=== PATIENT | female | born 1985 | race Caucasian/White ===

== ENCOUNTER → 2017-05-28 13:10 | Outpatient (CLI) | payer MEDICAID, SELFPAY ==
[2017-05-28 15:09] LABS: Vitamin B12 365 pg/mL (211-911)
[2017-05-28 15:44] LABS: ALB/GLOB Ratio 1.1 RATIO (0.9-2.4); AST(SGOT) 40 U/L (15-37); Alanine Aminotransfer ALT/SGPT 45 U/L (13-56); Albumin, Serum 3.8 g/dL (3.2-5.0); Alkaline Phosphatase 67 U/L (45-117); Anion Gap 6 (5-15); BUN 12 mg/dL (7-18); BUN/Creat Ratio 19.4 RATIO (10-20); Calcium,Total 8.9 mg/dL (8.5-10.1); Chloride 106 mmol/L (98-107); Creatinine, Serum 0.62 mg/dL (0.55-1.02); EST Glomerular Filtration Rate 120 mL/min (>60); Est Glom Filt Rate - Afr Amer 145 mL/min (>60); Globulin 3.6 g/dL (2.2-4.2); Glucose 77 mg/dL (74-106); Potassium 4.3 mmol/L (3.5-5.1); Protein, Total 7.4 g/dL (6.4-8.2); Sodium Level 140 mmol/L (136-145); Thyroid Stim Hormone (TSH) 4.92 uIU/mL (0.358-3.74)
== END ==
PROVIDERS: Visit Provider Family Medicine
DX: R20.2 Paresthesia of skin (principal)
CPT/HCPCS: 80053; 82607; 82746; 84443

== ENCOUNTER 2018-08-30 01:50 | Emergency (ER) | payer MEDICAID, SELFPAY ==
[2018-08-30 01:51] VITALS: BP 137/79; PULSE 108; RESP 18; TEMP 36.9; O2SAT 98; BMI 41.8
--- NOTE | 2018-08-30 02:28 | CT_ITS ---
HISTORY: LOW BACK PAIN,NAUSEA AND DIFFICULT URINATIONHX:ASTHMA,KIDNEY STONES,CERVICAL CANCER SURGERY:CHOLECYSTECTOMY,HYSTERECTOMY-HAS 1 OVARY EXAMINATION: CT Abdomen And Pelvis W/O Contrast TECHNIQUE: Helically acquired images were obtained of the abdomen and pelvis without oral or IV contrast as per renal stone protocol. A radiation dose optimization technique was used for this scan. IV Contrast dosage and agent: None. Oral contrast: None. COMPARISON: None Lower thorax: Clear. No pleural effusion or pericardial effusion. Cholecystectomy. No biliary dilatation. Limited non-fusion exam. Allowing for this, negative liver, spleen, and pancreas. Both kidneys are normal in position. No renal or ureteral calculi and no hydronephrosis or hydroureter. Adrenal glands are not enlarged. Abdominal aorta is normal in caliber. No ascites or retroperitoneal lymph enlargement. GI tract: No obstruction. Normal appendix. Pelvis: Hysterectomy. Poor distention of the urinary bladder. No urinary bladder stones seen. No free fluid or lymph node enlargement. Bones: No acute osseous abnormality. CT/Abdomen/Pelvis without Cont IMPRESSION: 1. No urolithiasis, obstructive uropathy, or acute disease identified. 2. Previous cholecystectomy and hysterectomy. Individualized dose optimization techniques were used for this CT. at 0330 Reported and signed by: Tavo Beyer MD Electronically Signed: Tavo Beyer, at 3:29 EDT Tel , Service support ,
[2018-08-30 02:32] LABS: Bacteria 0 SEEN /hpf (None Seen); Mucous, Urine 0 SEEN /hpf (<or=2+)
[2018-08-30] MEDS: Ketorolac 30 MG/ML Syringe IV (02:33)
[2018-08-30] MEDS: 0.9% Normal Saline 1,000 ML 250 ML IV (02:33)
[2018-08-30] MEDS: Ondansetron 4 MG/2 ML Vial IV (02:33)
[2018-08-30 02:37] LABS: Color, Urine Yellow (Yellow); Glucose, Dipstick Normal (Normal); Ketone-Dipstick Negative (Negative); Leukocyte Esterase-Dipstick 500 /ul (Negative); Nitrite-Dipstick Positive (Negative); Occult Blood-Urine 10 /ul (Negative); Protein-Dipstick 30 mg/dl (Negative); Urine Bilirubin Dipstick Negative (Negative); Urine Clarity Sl. Cloudy (Clear); Urine Urobilinogen Normal (Normal)
[2018-08-30 02:39] LABS: Absolute Lymphocyte Count 3.73 X10^3/ul (0.83-4.51); Basophil# 0.06 X10^3/uL; Basophil% 0.5 % (0-1); Eosinophil# 0.32 X10^3/uL; Eosinophils% 2.9 % (0-5); Hematocrit 40.2 % (37-47); Hemoglobin 13.3 g/dl (12.0-15.0); Lymphocyte # 3.73 X10^3/ul (4.0); Lymphocyte % 33.7 % (19-41); Mean Corp Hgb Conc 33.1 g/gl (32-36); Mean Corpuscular Hgb 29.6 pg (27.0-32.0); Mean Corpuscular Volume 89.5 fL (81-99); Mean Platelet Vol. 8.9 fl (6.2-12.0); Monocyte# 0.94 X10^3/uL; Monocyte% 8.5 % (0-10); Neutrophil # 5.98 X10^3/uL (2.7-7.7); Neutrophil % 54.1 % (47-70); Platelet Count 337 K/mm3 (150-450); RBC Distribution Width CV 12.8 % (11.6-14.6); RBC Distribution Width SD 41.5 fl (35.1-43.9); Red Blood Count 4.49 M/mm3 (4.2-5.4); White Blood Count 11.1 K/mm3 (4.4-11.0)
--- NOTE | 2018-08-30 02:40 | ED.VISSUMM ---
- ER Visit Summary Date of Service: 08/30/18 Chief Complaint: Low back and flank pain History of Present Illness: The patient is a 32 F who presents with low back and flank pain that began today. Patient states her pain has gradually gotten worse throughout the day. Patient describes her pain as burning and sharp. Patient states the pain is over the lower flank areas bilaterally but worse on the right. Patient denies any nausea or vomiting. Patient denies any diarrhea, melena, or hematochezia. Patient does admit to some dysuria but denies any hematuria. Patient denies any abnormal vaginal bleeding or discharge. Physical Examination: Vital signs are stable. Patient is afebrile. Patient is in no acute distress. Oral mucosa is pink and moist. Neck is supple. Trachea is midline. There is no JVD noted. Heart was regular rate and rhythm. Lungs are clear and equal bilateral. Abdomen is soft. Bowel sounds are normal. There is no tenderness. Musculoskeletal exam reveals tenderness over the lower lumbar paraspinal areas bilaterally, worse on the right. There is no bony crepitance or step-off noted. There is good range of motion. Strength is 5/5 bilaterally. There are no sensory deficits noted. Patient ambulated without difficulty. Test Results: CBC showed a slight leukocytosis of 11.1. Basic metabolic profile was essentially within normal limits. Urinalysis showed leukocyte esterase of 500 with positive nitrites and 10-25 white blood cells. There are 25-[address] scan of the abdomen and pelvis was obtained. There is no ureteral calculus noted. There is no obstruction noted. Emergency Department Course and Treatment: Patient was given IV fluids, Toradol, and Zofran here. Patient was given prescriptions for Bactrim and Pyridium. Patient was instructed to follow-up with her primary care physician in 3 to 5 days. Patient was instructed to drink plenty of fluids. Patient understood and was agreeable with the plan. All questions were answered. Disposition: Discharge home Impression: 1. Urinary tract infection This note was generated with [employer] dictation software. It may contain incorrect words, spelling, and punctuation that were not noted in review of the chart prior to signing ED Disposition - Plan for ED Patient: Disposition: Home or Assisted Living Diagnosis: Urinary tract infection Instructions: ED UTI Cystitis Female Prescriptions: Smz/Tmp Ds [Bactrim Ds] 1 tab PO BID #6 tab Phenazopyridine HCl [Pyridium] 200 mg PO TID #6 tab Referrals: Care Physician,No Primary [Primary Care Provider] -
[2018-08-30 02:43] LABS: Red Blood Cells-Urine 0-5 SEEN /hpf (0-5); Squamous Epithelial Cells - UA 25-50 SEEN /hpf (5-10); White Blood Cells 10-25 SEEN /hpf (0-5)
[2018-08-30 02:44] LABS: POSITIVE COUNT NO; POSITIVE DIFFERENTIAL NO; POSITIVE MORPHOLOGY NO
[2018-08-30 02:46] LABS: Anion Gap 5 (5-15); BUN 15 mg/dL (7-18); BUN/Creat Ratio 27.3 RATIO (10-20); Calcium,Total 8.9 mg/dL (8.5-10.1); Chloride 107 mmol/L (98-107); Creatinine, Serum 0.55 mg/dL (0.55-1.02); EST Glomerular Filtration Rate 137 mL/min (>60); Est Glom Filt Rate - Afr Amer 165 mL/min (>60); Estimated Creatinine Clearance 138.74 ml/min; Glucose 103 mg/dL (74-106); Potassium 3.9 mmol/L (3.5-5.1); Sodium Level 137 mmol/L (136-145)
[2018-08-30 03:26] VITALS: BP 113/65; PULSE 88; RESP 18; TEMP 36.8; O2SAT 100
== END 2018-08-30 03:48 | disposition home or self-care (01) ==
PROVIDERS: Emergency Provider Emergency Medicine
DX: N39.0 Urinary tract infection, site not specified (principal); E66.9 Obesity, unspecified; R51 Headache; Z90.49 Acquired absence of other specified parts of digestive tract; F17.200 Nicotine dependence, unspecified, uncomplicated
CPT/HCPCS: 74176; 80048; 81001; 85025; 96361; 96374; 96375; 99284; J7030; J2405

== ENCOUNTER 2018-09-21 14:21 | Emergency (ER) | payer MEDICAID, SELFPAY ==
[2018-09-21 14:22] VITALS: BP 133/65; PULSE 98; RESP 18; TEMP 36.6; O2SAT 98; BMI 41.5
[2018-09-21 14:54] LABS: Mucous, Urine 0 SEEN /hpf (<or=2+); Red Blood Cells-Urine 0 SEEN /hpf (0-5)
[2018-09-21 14:59] LABS: Color, Urine Yellow (Yellow); Glucose, Dipstick Normal (Normal); Ketone-Dipstick Negative (Negative); Leukocyte Esterase-Dipstick 100 /ul (Negative); Nitrite-Dipstick Positive (Negative); Occult Blood-Urine Negative /ul (Negative); Protein-Dipstick 15 mg/dl (Negative); Urine Bilirubin Dipstick Negative (Negative); Urine Clarity Cloudy (Clear); Urine Urobilinogen Normal (Normal)
--- NOTE | 2018-09-21 15:05 | ED.DCSUM_ITS ---
History of Present Illness Chief Complaint: Flank Pain Detail of Chief Complaint: Central low back pain and urinary symptoms not flank pain Informant: Patient Onset: Days Context: Sudden Onset Timing: Continuous Quality: Pain and dysuria with frequency Location: Urethra and central low back Current Severity: Mild Maximum Severity: Moderate Worsened by: Pain with urination Relieved by: Nothing Associated Symptoms: No associated symptoms Narrative: Patient was diagnosed August 30 with urinary tract infection. She believes she has recurrence. She denies fever, chills night sweats. She denies nausea, vomiting or diarrhea. She denies vaginal discharge. She denies history of diabetes. She does have history of ureteral stone. She denies urgency or hematuria. Prior similar symptoms: Yes Recent Illness/Hospitalization: Yes - Past Medical History (1) Nicotine dependence Status: Acute Comment: 1 pack of cigarettes daily (2) History of renal calculi Status: Acute Past Medical History - Allergies and Home Meds Allergies/Adverse Reactions: Allergies coconut Allergy (Verified 09/21/18 14:25) Hives meperidine HCl [From Demerol] Allergy (Verified 09/21/18 14:25) Hives venom-honey bee [bee venom (honey bee)] Allergy (Verified 09/21/18 14:25) Hives Primary Care Physician: Care Physician,No Primary [Primary Care Provider] - Prior records reviewed: Yes Surgical History: cholecystectomy, hysterectomy, - - sections ?2 Lives: Spouse/ Significant Other Smoking Status: Current every day smoker Drugs: None Review of Systems General: Denies: Chills, Fever, Malaise, Sweats Eyes: Denies: Visual changes - bilaterally, Diplopia ENT: Denies: Rhinorrhea, Sore throat Cardiovascular: Denies: Chest pain, Palpitations Respiratory: Denies: Dyspnea, Cough, Dyspnea on exertion Gastrointestinal: Denies: Abdominal pain, Nausea, Vomiting, Diarrhea, Melena, Hematochezia Genitourinary: Reports: Dysuria, Frequency, - - She denies urgency. Denies: Hematuria Musculoskeletal: Reports: Back pain. Denies: Myalgias, Arthralgias, Neck pain, Swelling, Extremity Pain, -, - Skin: Denies: Rash, Wounds Neurological: Denies: Headache, Weakness, Parasthesia, Numbness Endocrine: Denies: Polyuria, Polydipsia Allergy: Denies: Uticaria, Swelling of the mouth Physical Exam Vital Signs/Narrative: Vital Signs Temp Pulse Resp BP Pulse Ox 09/21/18 14:22 98 F 98 18 133/65 H 98 Inital Vital Signs reviewed: Yes General: Well nourished, Well developed, Obese, No Acute Distress Head: Normocephalic, Atraumatic Eyes: Perrl, EOMI ENT: Moist mucous membranes, No rhinorrhea Neck: Supple, Nontender Cardiovascular: Regular rate, Regular rhythm, No murmurs Respiratory: No distress, CTA bilaterally, Chest nontender Abdomen: Soft, Nondistended, Normal bowel sounds, Tender - Suprapubic discomfort to deep palpation Back: Nontender, Normal Inspection. Negative for: CVA tenderness Extremities: Nontender, No edema Skin: Normal color, No rash, No Trauma. Negative for: Cyanosis, Diaphoresis, Jaundice Neurological: Alert, Oriented x3, Cranial nerves II-XII grossly intact, Normal Strength, Normal Sensation Psychological: Normal affect, Normal Mood Diagnostic/Tx/Re-eval Laboratory Results 09/21/18 14:45 Urine Color Yellow Urine Clarity Cloudy Urine pH 6.0 Ur Specific [place] 1.020 Urine Protein 15 H Urine Glucose (UA) Normal Urine Ketones Negative Urine Occult Blood Negative Urine Nitrite Positive H Urine Bilirubin Negative Urine Urobilinogen Normal Ur Leukocyte Esterase 100 H Urine RBC 0 SEEN Urine WBC 0-5 SEEN Ur Squamous Epith Cells 10-25 SEEN Urine Bacteria 2+ Urine Mucus 0 SEEN - Medical Decision Making UA was obtained to confirm suspicion for urinary tract infection. Will review records from last month to determine what she was prescribed. If positive for infection will send culture since this is a complex urinary tract infection. Urine does reveal infection. Culture was sent. She was treated with Bactrim. Will treat with Macrobid. ED Disposition - Plan for ED Patient: Disposition: Home or Assisted Living Diagnosis: Complicated UTI (urinary tract infection) Instructions: ED UTI Cystitis Female Prescriptions: Nitrofurantoin Macrocrystals [Macrobid] 100 mg PO Q12 #14 cap Referrals: Care Physician,No Primary [Primary Care Provider] - Additional Instructions: If there is no improvement in 2 to 3 days follow-up with your primary care physician. The name of your primary care physician is on your insurance card.
[2018-09-21 15:18] LABS: Bacteria 2+ /hpf (None Seen); Squamous Epithelial Cells - UA 10-25 SEEN /hpf (5-10); White Blood Cells 0-5 SEEN /hpf (0-5)
[2018-09-21 16:21] VITALS: BP 115/70; PULSE 74; RESP 16; RESP 18
[2018-09-21] MEDS: Nitrofurantoin Macrocrystals 100 MG Capsule PO (16:23)
== END 2018-09-21 16:23 | disposition home or self-care (01) ==
PROVIDERS: Emergency Provider Emergency Medicine
DX: N39.0 Urinary tract infection, site not specified (principal); E66.9 Obesity, unspecified; Z87.442 Personal history of urinary calculi; F17.210 Nicotine dependence, cigarettes, uncomplicated
CPT/HCPCS: 81001; 87077; 87086; 87088; 87186; 99283

== ENCOUNTER 2018-11-28 18:35 | Emergency (ER) | payer MEDICAID, SELFPAY ==
[2018-11-28 18:37] VITALS: BP 135/88; PULSE 101; RESP 17; TEMP 36.9; O2SAT 99; BMI 40.3
--- NOTE | 2018-11-28 19:10 | RAD_ITS ---
STUDY: X-RAY - RIGHT FOOT CLINICAL: Female, 33 years old. Foot pain after falling. TECHNIQUE: 3 view(s) of the foot. COMPARISON: None. FINDINGS: There is a plate and screw fixation device within the distal fibula. There is a screw traversing the medial malleolus. Normal talus, calcaneus, and tarsal bones. Normal visualized subtalar, talonavicular, calcaneocuboid, tarsal and tarsometatarsal articulations. Normal metatarsi. Normal metatarsophalangeal joint of the great toe. Normal tibial and fibular sesamoid bones. Normal interphalangeal joint of the great toe. Normal phalanges of the great toe. Normal second through fifth metatarsophalangeal joints. Normal interphalangeal joints and phalanges of the lesser toes. The soft tissue structures are unremarkable. RAD/Foot min 3 Views IMPRESSION: No acute osseous injury. Electronically Signed: Almaz Marion MD at 19:34 EDT Tel , Service support ,
[2018-11-28 19:17] VITALS: PULSE 89; RESP 16; O2SAT 98
[2018-11-28] MEDS: Naproxen 500 MG Tablet PO (19:17)
--- NOTE | 2018-11-28 19:51 | ED.VISSUMM ---
- ER Visit Summary Date of Service: 11/28/18 Chief Complaint: Right foot pain History of Present Illness: The patient is a [address] De La Fuente. She reports that she had surgery on her right ankle in [place] [address] Mary. She reports that today she went to jump over a puddle and stubbed her right great toe into a sidewalk. She reports that she has a sharp, burning pain is now 10 with walking it cannot rest. She has not taken anything for pain. She denies any other injuries. Physical Examination: Vitals: Stable. Afebrile. General: Well-nourished and well-developed. Head: Normocephalic atraumatic. Neck: Supple, no lymphadenopathy. No JVD. Nontender. Cardiovascular: Regular rate and rhythm. No murmurs. Respiratory: No respiratory distress. Clear to auscultation bilaterally. Abdominal: Soft, nontender, nondistended, normal bowel sounds. No guarding, rebound, or peritoneal signs. Back: Nontender. Extremities: Thickened great toenail on the right consistent with onychomycosis. She has a contusion just proximal to this. She has mild tenderness palpation over the first metatarsal. There is no soft tissue swelling or contusion in this area. She has normal sensation to light touch. Skin: Normal color, no rash. Neurologic: Alert and oriented ?3. Cranial nerves II through XII are intact. Normal strength and sensation. Psych: Normal affect. Test Results: X-ray shows no acute disease. The hardware is intact. Emergency Department Course and Treatment: Patient was treated with naproxen and a postop shoe. She is resting comfortably. Treatment Plan: Patient will be discharged instructions to follow-up with her primary care physician in 1 week if not improving. She was given a prescription for naproxen. Instructed to use ice to the area. Return to the emergency department for any worsening symptoms. Disposition: To home in improved and stable condition. Impression: 1. Contusion right foot. This note was generated with [employer] dictation software. It may contain incorrect words, spelling, and punctuation that were not noted in review of the chart prior to signing ED Disposition - Plan for ED Patient: Disposition: Home or Assisted Living Instructions: CONTUSION, Foot Prescriptions: Naproxen [Naprosyn] 500 mg PO BID #14 tab Prescription Printed Referrals: Butch Dutta MD [Primary Care Provider] - 1 Week if not improving
== END 2018-11-28 20:12 | disposition home or self-care (01) ==
LOC: ED 19:14
PROVIDERS: Emergency Provider Emergency Medicine; Family Provider Family Medicine; PCP Family Medicine
DX: S90.31XA Contusion of right foot, initial encounter (principal); X58.XXXA Exposure to other specified factors, initial encounter; Y93.9 Activity, unspecified; Y92.9 Unspecified place or not applicable; F17.200 Nicotine dependence, unspecified, uncomplicated
CPT/HCPCS: 73630; 99283

== ENCOUNTER 2018-12-08 22:17 | Emergency (ER) | payer MEDICAID, SELFPAY ==
[2018-12-08 22:19] VITALS: BP 132/76; PULSE 87; RESP 15; TEMP 36; O2SAT 97; BMI 41.9
[2018-12-08 22:28] VITALS: TEMP 36
--- NOTE | 2018-12-08 22:43 | ED.VIS.GEN ---
History of Present Illness Chief Complaint: Cellulitis Narrative: Patient is a 33-year-old female who presents with concern for MRSA. She noticed some redness on the left side of her nose for the past 3 days. No systemic symptoms. No fevers nausea vomiting. She does report a history of prior similar symptoms. She states doxycycline does not work for me. She does report that she has responded well to Keflex and Bactrim in the past. Past Medical History - Allergies and Home Meds Allergies/Adverse Reactions: Allergies coconut Allergy (Verified 12/08/18 22:18) Hives meperidine HCl [From Demerol] Allergy (Verified 12/08/18 22:18) Hives venom-honey bee [bee venom (honey bee)] Allergy (Verified 12/08/18 22:18) Hives Primary Care Physician: Butch Dutta MD [Primary Care Provider] - Past Medical History: - - Asthma Surgical History: cholecystectomy, hysterectomy, - - sections ?2 Smoking Status: Current every day smoker Review of Systems All systems negative except as indicated General: Denies: Fever Cardiovascular: Denies: Chest pain Respiratory: Denies: Cough Gastrointestinal: Denies: Nausea, Vomiting Physical Exam Vital Signs/Narrative: Vital Signs Temp Pulse Resp BP Pulse Ox 12/08/18 22:28 96.8 F L 12/08/18 22:19 96.8 F L 87 15 132/76 H 97 General: Well nourished Head: Normocephalic ENT: Moist mucous membranes Cardiovascular: Regular rate, Regular rhythm Respiratory: No distress, CTA bilaterally Abdomen: Soft Skin: - - Patient has erythema along the left side of the nose no fluctuance no focal abscess this does not extend onto the cheek or face otherwise Neurological: Alert Psychological: Normal affect Diagnostic/Tx/Re-eval - Medical Decision Making Patient has a small area of cellulitis along the left side of her nose. We will treat with Keflex and Bactrim and she was discharged. ED Disposition - Plan for ED Patient: Disposition: Home or Assisted Living Diagnosis: Cellulitis Instructions: Cellulitis Prescriptions: Smz/Tmp Ds [Bactrim Ds] 1 tab PO BID #20 tab Prescription Printed Cephalexin [Keflex] 500 mg PO Q6 #40 cap Prescription Printed Referrals: Butch Dutta MD [Primary Care Provider] -
[2018-12-08 23:03] VITALS: RESP 17
== END 2018-12-08 23:03 | disposition home or self-care (01) ==
LOC: ED 22:51
PROVIDERS: Emergency Provider Emergency Medicine; Family Provider Family Medicine; PCP Family Medicine
DX: J34.0 Abscess, furuncle and carbuncle of nose (principal); J45.909 Unspecified asthma, uncomplicated; F17.200 Nicotine dependence, unspecified, uncomplicated
CPT/HCPCS: 99282

== ENCOUNTER 2018-12-10 20:50 | Emergency (ER) | payer MEDICAID, SELFPAY ==
[2018-12-10 20:52] VITALS: BP 94/74; PULSE 95; RESP 16; TEMP 36.6; O2SAT 98; BMI 43.2
--- NOTE | 2018-12-10 21:23 | ED.VIS.GEN ---
History of Present Illness Chief Complaint: Wound Check Informant: Patient Onset: Days Context: Gradual Onset Timing: Continuous Quality: Increased pain and swelling Location: Left side of nose Current Severity: Moderate Maximum Severity: Severe Worsened by: Touch Relieved by: Nothing Associated Symptoms: Tired Narrative: Patient is a 33-year-old woman who was seen 2 days ago and diagnosed with MRSA infection of her nose. She was told she has cellulitis. She was prescribed cephalexin and Bactrim. She presents today because of being tired with increased pain and swelling. There is a small subcutaneous abscess noted. There is erythema noted. She denies double vision, blurred vision loss of vision. She denies a traumatic fever, murmur, SBE, IV drug use or being immune suppressed. Prior similar symptoms: Yes Recent Illness/Hospitalization: Yes - Past Medical History (1) Felon of finger of left hand Status: Acute Comment: Left middle finger (2) History of renal calculi Status: Acute (3) Nicotine dependence Status: Acute Comment: 1 pack of cigarettes daily Past Medical History - Allergies and Home Meds Allergies/Adverse Reactions: Allergies coconut Allergy (Verified 12/10/18 20:53) Hives meperidine HCl [From Demerol] Allergy (Verified 12/10/18 20:53) Hives venom-honey bee [bee venom (honey bee)] Allergy (Verified 12/10/18 20:53) Hives Primary Care Physician: Butch Dutta MD [Primary Care Provider] - Prior records reviewed: Yes Surgical History: cholecystectomy, hysterectomy, - - sections ?2 Lives: Spouse/ Significant Other Smoking Status: Current every day smoker Alcohol: Rare Drugs: None Review of Systems General: Reports: Malaise. Denies: Chills, Fever, Subjective, Sweats Eyes: Denies: Visual changes - bilaterally, Blurred Vision - bilaterally, Diplopia ENT: Denies: Bilateral ear pain, Rhinorrhea, Sore throat Cardiovascular: Denies: Chest pain Respiratory: Denies: Dyspnea Gastrointestinal: Denies: Nausea, Vomiting Musculoskeletal: Denies: Back pain, Extremity Pain Skin: Reports: Rash, Abscess. Denies: Abrasions, Wounds Neurological: Denies: Headache, Weakness, Parasthesia, Numbness Hematologic: Denies: Easy bruising, Easy bleeding Physical Exam Vital Signs/Narrative: Vital Signs Temp Pulse Resp BP Pulse Ox 12/10/18 20:52 98 F 95 16 94/74 98 Inital Vital Signs reviewed: Yes General: Well nourished, Well developed, Obese, No Acute Distress Head: Normocephalic, Atraumatic Eyes: Perrl, EOMI. Negative for: Pale conjunctiva, Scleral icterus ENT: Moist mucous membranes, No rhinorrhea. Negative for: Nasal congestion, Sinus tenderness Neck: Supple, Nontender, No lymphadenopathy, No JVD Cardiovascular: Regular rate, Regular rhythm, No murmurs, Normal S1, Normal S2 Respiratory: No distress, CTA bilaterally, Chest nontender Skin: Normal color, No Trauma, Rash. Negative for: Cyanosis, Diaphoresis, Jaundice Neurological: Alert, Oriented x3, Cranial nerves II-XII grossly intact, Normal Strength, Normal Sensation Psychological: Normal affect, Normal Mood Diagnostic/Tx/Re-eval - Medical Decision Making There is a small subcutaneous abscess left side of the nose. There is surrounding erythema. Patient was informed that the abscess needs to be drained. Let was applied and will make small incision with 11 blade. Please read procedure note. Procedures Procedure(s): Was applied and in place for 30 minutes. Using 11 blade a small puncture wound was made. There was purulent material that drained from the area and expressed. Estimate 0.1 to 0.2 cc of white thick purulent fluid. The surrounding erythema improved significantly. Suspect the erythema was secondary to pressure. ED Disposition - Plan for ED Patient: Disposition: Home or Assisted Living Diagnosis: Abscess of skin and subcutaneous tissue Instructions: ABSCESS, Incision and Drainage Referrals: Butch Dutta MD [Primary Care Provider] - 2 Days for wound check
[2018-12-10] MEDS: Lidocaine/Epi/Tetracaine 50 ML 1 APPLIC TOPICAL (21:30)
== END 2018-12-10 22:41 | disposition home or self-care (01) ==
PROVIDERS: Emergency Provider Emergency Medicine; Family Provider Family Medicine; PCP Family Medicine
DX: J34.0 Abscess, furuncle and carbuncle of nose (principal); Z86.14 Personal history of Methicillin resistant Staphylococcus aureus infection; Z87.442 Personal history of urinary calculi; F17.210 Nicotine dependence, cigarettes, uncomplicated
CPT/HCPCS: 10060; 99282

== ENCOUNTER → 2019-01-06 15:40 | Outpatient (CLI) | payer MEDICAID, SELFPAY ==
[2018-12-10 20:52] VITALS: BMI 43.2
[2019-01-06 16:04] LABS: Erythrocyte Sedimentation Rate 22 mm/hr (0-20)
[2019-01-06 16:10] LABS: CRP 8.66 mg/L (0.0-3.0); Lipase 94 U/L (73-393)
== END ==
PROVIDERS: Family Provider Family Medicine; PCP Family Medicine; Referring Provider Family Medicine; Visit Provider Family Medicine
DX: R10.31 Right lower quadrant pain (principal)
CPT/HCPCS: 83690; 85652; 86140

== ENCOUNTER 2019-01-06 17:04 | Observation (INO) | payer MEDICAID, SELFPAY ==
[2019-01-06] VITALS (8 sets, daily range): BP systolic 91–131; BP diastolic 52–93; PULSE 63–87; RESP 16–18; TEMP 36.3–37.2; O2SAT 95–99; BMI 41.1; BMI 40.9
--- NOTE | 2019-01-06 16:30 | APP_PTH ---
PATIENT: FLORIDA BALTAZAR LOC: [facility] U#:[id number] AGE/SX: 33/F ROOM: SC324 RE01/06/[address]: Dr. Bobbi Shaver MD : 1985 BED: 1 DIS: 01/07/2019 SPEC #: [id number] RECD: 01/07/19 11:40 STATUS: TRUDI REQ #: [id number] MADDIE: 01/06/19 16:[address]: Bobbi Shaver DEPT: SURGICAL PATHOLOGY RECD BY: Miguel Raygoza ENTERED: 01/07/19 13:15 SP TYPE: APPENDIX OTHR DR: Dr. Butch Dutta MD Tissues: Appendix, NOS Procedures: Surgery Specimen Level III HEADER OPERATION: Laparoscopic appendectomy PRE-OP DIAGNOSIS: Right lower quadrant abdominal pain TISSUE SUBMITTED: Appendix MICROSCOPIC DIAGNOSIS Appendix, appendectomy: Appendix, no pathologic diagnosis. See comment. TESSY:sophia 01/08/19 COMMENT The entire appendix is examined. MICROSCOPIC DESCRIPTION Slides are reviewed. GROSS DESCRIPTION Received is one container labeled with the patient's name and designated appendix. The specimen consists of an appendix measuring 7 cm in length and 0.3 to 0.5 cm in diameter. The attached periappendiceal adipose tissue measures up to 2 cm in width. No obvious perforation is identified. The serosa is congested. The lumen is filled with fecal material. No fecalith is identified. The entire appendix is submitted in three cassettes. Cassette 1 contains the tip and proximal portion. / SJ:rg 01/07/19 TC:4 CPT: 17083
--- NOTE | 2019-01-06 16:45 | HP.PCM_ITS ---
History and Physical Date of Admission: 01/06/19 HISTORY AND PHYSICAL ? Veronica Pantoja 1985 ? ? REFERRING PHYSICIAN: Dayton Dutta * ? CHIEF COMPLAINT: Consult (Consult Possible appy) ? HPI: The patient is a 33 year old female presents with right lower quadrant abdominal pain starting Friday evening - 01/03/19. She states that it has been constant - a burning ache with crescendo and decrescendo sharp pains. She states that pain has been increasing. Also notes diarrhea - 5-6 watery bowel movements per day. She also has decreased appetite - feels queasy. Has had episode of nausea and emesis. Denies burning with urination. Denies fevers. Denies chills. ? ? PAST MEDICAL HISTORY ? ADD (attention deficit disorder) ? ? Anxiety ? ? Calculus of gallbladder without mention of cholecystitis or obstruction 05/14/2007 ? Felon of finger of left hand ? ? Insomnia ? ? MRSA infection ? ? Polysubstance abuse (HCC) ? ? heroin, methamphetamine. Last use was 02/05/2016. marijuana-last use 07/2016. [facility] ? Tobacco use ? ? Unspecified asthma(493.90) ? ? PAST SURGICAL HISTORY ? ANKLE SURGERY HX ? 03/2018 ? DELIVERY ONLY ? 09/16/2006, 01/25/2011 ? , low cervical ? COLONOSCOPY W/BX ? 02/14/09 ? EGD W/O BRSH SPECIMEN W/BX ? 02/14/09 ? Chronic gastritis ? HYSTERECTOMY HX ? 2015 ? LAP CHOLECYSTECT/CHOLANGIOGRAPHY ? 05/28/2007 ? Normal IOC ? PAST SURGICAL HISTORY OF ? 2016 ? I&D of back infection MRSA ? ? Current Outpatient Medications: Patient states that she is not taking any medications presently. nicotine (NICODERM) 14 mg/24 hr Apply 1 Patch as directed every 24 hours. No smoking with patch. nicotine (NICODERM) 7 mg/24 hr Apply 1 Patch as directed every 24 hours. escitalopram oxalate (LEXAPRO) 20 mg tablet Take 1 tablet by mouth once daily. traZODone (DESYREL) 50 mg tablet Take 1 tablet by mouth daily at bedtime. hydrOXYzine pamoate (VISTARIL) 25 mg capsule Take 1 capsule by mouth once daily as needed for Anxiety. EPINEPHrine (EPIPEN 2-KYLE) 0.3 mg/0.3 mL auto-injector Inject 0.3 mL intramuscularly as needed. albuterol HFA (VENTOLIN HFA) 90 mcg/actuation inhaler Inhale 2 Puffs as instructed every 4 hours as needed. ? ? ALLERGIES: Bees; Coconut, Coconut Oil; Demerol [Meperidine (Pf)]; Poison Chastity ? PERSONAL HISTORY: Social History Socioeconomic History Marital status: Single Tobacco Use Smoking status: Current Every Day Smoker Packs/day: 0.50 Years: 13.00 Pack years: 6.5 Types: Cigarettes Start date: 01/06/2006 Alcohol use: No Drug use: No FAMILY HISTORY ? Heart Maternal Grandfather? mvp, ? Diabetes Maternal Grandfather ? ? Heart Maternal Grandmother? cardiomyopathy ? Diabetes Maternal Grandmother ? ? Headache Maternal Grandmother? migraines ? Headache Mother ? migraines ? Alcohol/Drug Sister ? ? Alcohol/Drug Brother ? ? Alcohol/Drug Maternal Uncle ? ? Alcohol/Drug Sister ? ? ? REVIEW OF SYSTEMS: General: The patient notes fatigue, denies weight loss, denies weight gain, denies feeling hot, and denies feelings of cold. Eyes: The patient denies glaucoma, denies eye injury/surgery, wears glasses or contacts. Ear/Nose/Throat: The patient denies allergies, denies hayfever, denies ear infections, and denies bloody noses. Cardiovascular: The patient denies chest pain, denies heart disease, denies high blood pressure,denies cardiac stent, denies prior heart attack, denies irregular heart beat, denies high cholesterol, denies poor circulation, denies heart failure, other cardiac issues, denies claudication, denies cold feet, denies peripheral arterial stent. Respiratory: The patient denies tuberculosis, denies pneumonia, denies frequent cough, denies pulmonary embolism, denies shortness of breath, and denies coughing up blood. Gastrointestinal: The patient denies difficulty swallowing, denies acid reflux, denies ulcers, denies vomiting, denies jaundice/hepatitis, NOTES gallbladder problems, denies black or tarry stools, denies hemorrhoids, denies bleeding from rectum, denies diverticulitis, denies constipation, denies diarrhea, denies loss of stool control, and denies hernias. Kidney/Bladder: The patient denies kidney stones, denies urine infections, and denies bloody urine. Skin: The patient denies a history of skin cancer, denies bleeding/changing moles, and denies a history of skin rash. Neurologic: The patient denies a history of epilepsy/convulsions, denies headaches, denies head/spinal injuries, and denies stroke/TIA. Psychiatric: The patient denies psychiatric medications, denies depression, and denies voices, denies substance abuse. Endocrine: The patient NOTES thyroid disorders, denies diabetes, and denies hormonal problems. Hematologic: The patient denies a history of bruising, denies bleeding, and denies anemia, denies blood clots. Infections: The patient denies a history of measles and mumps, denies rheumatic fever, and denies sexually transmitted diseases. Musculoskeletal: The patient denies back pain/injury, denies back problems, denies sciatica, denies knee/foot trouble, denies arthritis, or denies gout. ? PHYSICAL EXAMINATION: General: The patient is 33 year old female, well nourished, well hydrated in no acute distress. The patient is oriented to time, place, and person. VITALS: BP 116/84 Pulse 84 Temp 98 ?F Resp 14 Wt 255 lb SpO2 97% BMI 41.16 kg/m? Head ? Normocephalic. EOM intact with sclera clear and no icterus noted. Mouth with mucus membranes moist. Neck - supple with no jugular venous distention noted. Trachea is midline. Lungs ? clear to auscultation. Normal breath sounds. No rales/rhonchi/wheezing n oted. No labored breathing noted, such as retractions.. Heart ? normal S1 and S2 auscultated. No rubs/clicks/murmurs noted. Regular rate. Abdomen ? soft but tender in the right lower quadrant with positive rebound and guarding and Rovsing's sign, also suprapubic tenderness. Difficult to determine if any masses or organomegaly due to body habitus. Extremities ? no calf tenderness noted. No pitting edema noted. Skin ? normal skin integrity. Neurological ? gait normal, no focal deficits noted. Psych ? calm and appropriate ? IMPRESSION: right lower quadrant abdominal pain ? PLAN: I have discussed the above with the patient and female significant other who is present with her. I have offered further evaluation with abdominal/pelvic CT scan versus proceeding with laparoscopic appendectomy. The patient strongly feels that she has appendicitis, she wishes to proceed with removal of the appendix and understands that the appendix may be normal, but it will still be removed. I have explained the procedure to the patient. I have counseled the patient as to the risks of the procedure, including but not limited to: infection, bleeding, injury to any blood vessels/nerves, scar tissue, injury to any intraabdominal organs, injury to bowel/bladder, intraabdominal abscess/bleeding, hernias at incisional sites, wound infections, complications of anesthesia, etc. ? the patient understands. The patient wishes to proceed. I have answered all questions to the patient?s satisfaction and the patient has no further questions. . Diagnoses: (R10.31) Right lower quadrant abdominal pain (primary encounter diagnosis) (R19.7) Diarrhea, unspecified type (E66.01) Morbid obesity (HCC) Return to Clinic: The patient is instructed to follow-up with me after the procedure as per needed.
[2019-01-06 16:50] LABS: Internal QC Validated? YES +Cl - CLEAR BKGD; Pregnancy, Urine Negative Negative
[2019-01-06] MEDS: Lactated Ringers 1,000 ML 75 ML IV ×2 (16:53→17:46)
--- NOTE | 2019-01-06 18:23 | OP.PCM_ITS ---
Report of Operation Date of Procedure: 01/06/19 Pre-Operative Diagnosis: right lower quadrant abdominal pain Post-Operative Diagnosis: same Surgery/Procedure Performed:: laparoscopic appendectomy Description of Surgical Findings:: no evidence of appendiceal inflammatory changes, no ruptured appendix, no fluid in pelvis Type of Anesthesia:: General Anesthesiologist: Brien Hernandez Specimen's removed: appendix Estimated Blood Loss (mL): < 10 ml Fluids Replaced: see anesthesia note Description of Procedure: After informed consent was obtained, the patient was brought into the Operating Room. Appropriate time out protocol was followed. She was then placed in the supine position on the operating table. The patient was then placed under general anesthesia. The patient?s abdomen was then prepped with a sterile surgical skin preparation and sterile surgical drapes were placed. The infraum bilical skin fold was grasped with penetrating clamps and the skin and subcutaneous tissues were infiltrated with 0.25% marcaine with epinephrine. A skin incision was then made. A Veress needle was then inserted into the intraabdominal cavity and checked to be in the proper position with a normal saline drop test. A CO2 pneumoperitoneum was then created. Once this was achieved, the Veress needle was removed and an 11 mm trocar was placed in its stead. A 10 mm laparoscope was then inserted into the trocar. Careful examination of the intraabdominal contents was then done. There was no evidence of injury to any internal organs from placement of the Veress needle or the trocar. Under direct visualization, a 12mm suprapubic trocar and a 5mm left lower quadrant trocar was then placed into the intraabdominal cavity. The skin and subcutaneous tissues at these sites were first infiltrated with 0.25% marcaine with epinephrine. Attention was then directed to the right lower quadrant. No peritoneal fluid was noted. There were adhesions of the small bowel to the right pelvic sidewall. These were taken down using the Harmonic scalpel. The appendix was visualized. It appeared grossly normal. It was noted to be in the mid right abdomen, rather than the right lower quadrant of the abdomen. The mesentery of the appendix was taken down by cauterizing the tissue from the free edge to the base of the appendix with the Harmonic scalpel. Once the base of the appendix was freed of surrounding tissues, then the linear gastrointestinal stapling device was brought into the abdominal cavity via the 12mm port and placed across the base of the appendix. The stapling device was fired, thus stapling across the base of the appendix and transecting it simultaneously. The appendix was then placed in an Endobag and this was brought out through the suprapubic trocar. The appendix was then forwarded to Pathology for analysis. The appendiceal stump was carefully examined. There was no evidence of any active bleeding or fecal leakage. The surrounding tissues were also examined and there was no evidence of any active bleeding or fecal/bile leakage. The intraabdominal cavity was examined and there was no evidence of further inflammation or tissue abnormality. There was no evidence of any peritoneal fluid. The CO2 pneumoperitoneum was released and all trocars were removed intact. The suprapubic fascia and the periumbilical fascia was reapproximated with a figure-of-8 vicryl suture. All skin incisions were reapproximated with monocryl suture. Cavilon and steristrips were applied to reinforce skin closure and proper sterile dressings were placed. The patient was then extubated and brought to the Recovery Room in stable condition. - Complications none noted - Admit VTE Documentation VTE Present on Admission: Yes VTE Mechan Device Prophylaxis: SCD's
--- NOTE | 2019-01-06 18:26 | PCM.DC.APPY ---
Discharge Diet: No Restrictions - drink plenty of fluids avoid carbonated beverages for a couple of days Discharge Activity: Return to Normal Activity, May not drive while taking narcotic pain medications. Lifting Restrictions: no lifting greater than 20 pounds for two weeks Call your doctor if your incision/area has: Continuous Slow Oozing, Foul Smelling Discharge Call your doctor if you observe: Fever of 101 or Higher Additional Dressing/Incision Instructions:: Leave dressings in place. May get wet in shower. Do not soak - no tub baths/swimming Additional Instructions: recommended pain medication regimen: can take 650 mg acetaminophen (Tylenol), then in three hours take 600 mg ibuprofen (Motrin), then in three hours take 650 mg acetaminophen, then in three hours take 600 mg ibuprofen for 2-3 days take narcotic prescription pain medication for breakthrough pain and at night Medications to take at Discharge Hydrocodone Bitart/Apap 5-325 [[place] 5MG-325MG] 1 tab PO Q8H PRN PRN 5 Days #15 tab 01/06/19 Allergies/Adverse Reactions: Allergies poison victor hugo extract Allergy (Severe, Verified 01/06/19 18:44) SEVERE Swelling coconut Allergy (Verified 12/10/18 20:53) Hives meperidine HCl [From Demerol] Allergy (Verified 12/10/18 20:53) Hives venom-honey bee [bee venom (honey bee)] Allergy (Verified 12/10/18 20:53) Hives The following prescriptions were given: Hydrocodone Bitart/Apap 5-325 [[place] 5MG-325MG] 1 tab PO Q8H PRN PRN 5 Days #15 tab PRN Reason: Pain Prescription Printed Test Results: Test results from this visit will be discussed in further detail at your follow-up appointment, if applicable. Please Follow Up With: Bobbi Shaver MD - call When: to be seen in 1-2 weeks, please call for date and time, thank you
[2019-01-06] MEDS: HYDROcodone Bitartrate/Apap 5/325 Tablet PO (20:31)
[2019-01-07] MEDS: HYDROcodone Bitartrate/Apap 5/325 Tablet PO ×3 (00:29→08:40)
[2019-01-07] MEDS: Morphine 4 MG/ML Syringe IV (01:49)
[2019-01-07 04:25] VITALS: BP 104/68; PULSE 56; RESP 16; TEMP 36.7; O2SAT 96
[2019-01-07] MEDS: Lactated Ringers 1,000 ML 75 ML IV (04:28)
[2019-01-07 08:30] VITALS: BP 118/67; PULSE 54; RESP 16; TEMP 36.6; O2SAT 93
== END 2019-01-07 09:18 | disposition home or self-care (01) ==
LOC: MS3 01-07 09:46 → SDC 01-07 09:47 → MS3 01-07 09:47
PROVIDERS: Anesthesiology; Admitting Provider Surgery; Family Provider Family Medicine; PCP Family Medicine; Referring Provider Surgery; Visit Provider Surgery
PROC: 0DTJ4ZZ Resection of Appendix, Percutaneous Endoscopic Approach (ICD-10-PCS; CPT 44970; principal; 2019-01-06 16:10)
DX: R10.31 Right lower quadrant pain (principal); E03.9 Hypothyroidism, unspecified; R19.7 Diarrhea, unspecified; R11.2 Nausea with vomiting, unspecified; F17.210 Nicotine dependence, cigarettes, uncomplicated; E66.01 Morbid (severe) obesity due to excess calories; K66.0 Peritoneal adhesions (postprocedural) (postinfection); Z86.14 Personal history of Methicillin resistant Staphylococcus aureus infection; Z68.41 Body mass index [BMI] 40.0-44.9, adult; Z71.3 Dietary counseling and surveillance
CPT/HCPCS: 00840; 44970; 81025; 83690; 85652; 86140; 88304; 96361; 96374; 99218; 99406; J7120; G0378; J2405

== ENCOUNTER 2019-01-07 22:13 | Emergency (ER) | payer MEDICAID, SELFPAY ==
[2019-01-06 20:19] VITALS: BMI 40.9
[2019-01-07 22:15] VITALS: BP 162/92; PULSE 74; RESP 18; TEMP 36.6; O2SAT 98; BMI 41.0
--- NOTE | 2019-01-07 22:23 | RAD_ITS ---
STUDY: X-RAY CHEST REASON FOR EXAM: Female, 33 years old. Cough and fever. Shortness of breath. TECHNIQUE: Frontal and lateral views of the chest. COMPARISON: None. FINDINGS: The lungs are clear and expanded. There is no demonstrated pleural abnormality. Normal size heart. Normal mediastinum and aashish. Normal visualized pulmonary arteries. Normal visualized aortic arch and descending thoracic aorta. Normal visualized thoracic spine. Normal visualized ribs, clavicles, and shoulders. There is no demonstrated abnormality of the visualized soft tissue structures of the upper abdomen. RAD/Chest PA and Lateral IMPRESSION: Normal x-ray examination of the chest. Electronically Signed: Tr Kam MD at 22:43 EDT , Service support ,
--- NOTE | 2019-01-07 22:23 | ED.VIS.GEN ---
History of Present Illness Chief Complaint: Fever Informant: Patient Onset: Today Context: Sudden Onset Timing: Continuous Quality: Subjective fever and shakes Location: Initially generalized now abdomen Current Severity: Mild Maximum Severity: Moderate Worsened by: Unknown Relieved by: Nothing Associated Symptoms: No other associated symptoms Narrative: Patient is a 33-year-old woman status post laparoscopic appendectomy by Dr. Bobbi Shaver. She was discharged today. She presents because of subjective fever with shakes. States her stomach is quivering. She denies vomiting or diarrhea. She denies dysuria, frequency, urgency or hematuria. She does report cough that started today. Cough is nonproductive. She has no other complaints. Prior similar symptoms: No Recent Illness/Hospitalization: Yes - Past Medical History (1) History of renal calculi Status: Acute (2) Nicotine dependence Status: Acute Comment: 1 pack of cigarettes daily Past Medical History - Allergies and Home Meds Allergies/Adverse Reactions: Allergies poison victor hugo extract Allergy (Severe, Verified 01/07/19 22:17) SEVERE Swelling coconut Allergy (Verified 01/07/19 22:17) Hives meperidine HCl [From Demerol] Allergy (Verified 01/07/19 22:17) Hives venom-honey bee [bee venom (honey bee)] Allergy (Verified 01/07/19 22:17) Hives Primary Care Physician: Butch Dutta MD [Primary Care Provider] - Prior records reviewed: Yes Surgical History: cholecystectomy, hysterectomy, - - sections ?2 Lives: Spouse/ Significant Other Smoking Status: Current every day smoker Alcohol: None Drugs: None Review of Systems General: Reports: Chills, Fever, Subjective. Denies: Sweats ENT: Denies: Bilateral ear pain, Rhinorrhea, Sore throat Cardiovascular: Denies: Chest pain, Palpitations, Heart racing Respiratory: Reports: Cough, Dyspnea on exertion. Denies: Dyspnea, Sputum Gastrointestinal: Reports: Abdominal pain. Denies: Nausea, Vomiting, Diarrhea, Melena, Hematochezia Genitourinary: Denies: Dysuria, Hematuria, Frequency Musculoskeletal: Denies: Myalgias, Arthralgias, Neck pain, Back pain, Swelling, Extremity Pain, -, - Neurological: Denies: Headache, Weakness, Numbness Hematologic: Denies: Easy bruising, Easy bleeding Physical Exam Vital Signs/Narrative: Vital Signs Temp Pulse Resp BP Pulse Ox 01/07/19 22:15 97.9 F 74 18 162/92 H 98 Inital Vital Signs reviewed: Yes General: Well nourished, Well developed, Obese, No Acute Distress Head: Normocephalic, Atraumatic Eyes: Perrl, EOMI. Negative for: Pale conjunctiva, Scleral icterus ENT: Moist mucous membranes, No rhinorrhea, TM's clear Neck: Supple, Nontender, No lymphadenopathy, No JVD Cardiovascular: Regular rate, Regular rhythm, No murmurs, Normal S1, Normal S2 Respiratory: No distress, CTA bilaterally, Chest nontender Abdomen: Soft, Nondistended, No masses, Tender, - - Port sites are discolored/bruised.. Negative for: Nontender, Normal bowel sounds, Guarding, Rebound tenderness, Hypoactive bowel sounds Back: Nontender, Normal Inspection. Negative for: CVA tenderness Extremities: Nontender, No edema Skin: Normal color, No rash Neurological: Alert, Oriented x3, Cranial nerves II-XII grossly intact, Normal Strength, Normal Sensation Psychological: Normal affect, Normal Mood Diagnostic/Tx/Re-eval Chest X-Ray - ED: 2 View, Read by ED Physician, Normal, Heart, Lungs, Mediastinum, Bony Structures, No Acute Disease With a normal chest x-ray no fever and no other objective findings will discharge to home and have patient follow-up with Dr. Shaver as scheduled. - Medical Decision Making Patient was informed that she is not febrile. She still feels her abdomen is quivering. Since her only complaint is cough will obtain chest x-ray to assess for pneumonia. ED Disposition - Plan for ED Patient: Disposition: Home or Assisted Living Diagnosis: Subjective fever, Cough in adult Instructions: Postsurgical Coughing Referrals: Butch Dutta MD [Primary Care Provider] - As Needed Bobbi Shaver MD [STAFF PHYSICIAN] - Keep Abimael appointment
[2019-01-07 22:53] VITALS: RESP 18
== END 2019-01-07 22:54 | disposition home or self-care (01) ==
PROVIDERS: Emergency Provider Emergency Medicine; Family Provider Family Medicine; PCP Family Medicine
DX: R50.9 Fever, unspecified (principal); R05 Cough; F17.210 Nicotine dependence, cigarettes, uncomplicated
CPT/HCPCS: 71046; 99282

== ENCOUNTER 2019-01-13 14:40 | Emergency (ER) | payer MEDICAID, SELFPAY ==
[2019-01-13 14:43] VITALS: BP 142/79; PULSE 96; RESP 15; TEMP 36.8; O2SAT 97; BMI 42.3
[2019-01-13 14:48] VITALS: BP 142/79; PULSE 96; RESP 15; TEMP 36.8; O2SAT 97
--- NOTE | 2019-01-13 15:02 | ED.DCSUM_ITS ---
- ER Visit Summary Date of Service: 01/13/19 Chief Complaint: Postop check History of Present Illness: The patient is a 33 F who is postop day 5 for an appendectomy. This was with Dr. Shaver. She went to the office today for follow- up. She says she is not feeling well and having some pain at the site. She said that the office told her she was having financial issues and that she needed to speak with financial counseling, so she left the office and came to the ED for her postop check. No other associated symptoms or complaints. Physical Examination: Afebrile and vital signs unremarkable. Her abdomen is soft and nontender. Incision is clean, dry, intact. I do not palpate any masses or fluctuance. There is some ecchymosis around the umbilical incision, but otherwise it is unremarkable. No guarding or rebound. Test Results: None indicated Emergency Department Course and Treatment: Patient was discussed with Dr. Shaver. I do not believe any emergency labs or imaging is indicated. The patient will need follow-up with surgery. She said that the patient can come to the office and see a financial counselor today. It is walk-in. It is on the first floor. Patient was advised to proceed there directly. Treatment Plan: As above Disposition: Discharge Impression: 1. Abdominal pain This note was generated with [employer] dictation software. It may contain incorrect words, spelling, and punctuation that were not noted in review of the chart prior to signing ED Disposition - Plan for ED Patient: Referrals: Butch Dutta MD [Primary Care Provider] -
--- NOTE | 2019-01-13 15:05 | ED.DEP ---
ED Disposition - Plan for ED Patient: Instructions: POST OP WOUND CHECK, Pain Referrals: Bobbi Shaver MD [STAFF PHYSICIAN] -
[2019-01-13 15:20] VITALS: PULSE 97; RESP 14; O2SAT 99
== END 2019-01-13 15:20 | disposition home or self-care (01) ==
LOC: ED 15:11
PROVIDERS: Emergency Provider Emergency Medicine; Family Provider Family Medicine; PCP Family Medicine
DX: R10.9 Unspecified abdominal pain (principal); Z72.0 Tobacco use
CPT/HCPCS: 99282

== ENCOUNTER 2019-01-18 19:21 | Emergency (ER) | payer MEDICAID, SELFPAY ==
[2019-01-18 19:22] VITALS: BP 123/79; PULSE 86; RESP 16; TEMP 36.8; O2SAT 98; BMI 41.5
--- NOTE | 2019-01-18 20:14 | ED.RN ---
DR PATRICIA MOFFETT FOR DR AMIN
--- NOTE | 2019-01-18 20:22 | ED.VIS.GEN ---
History of Present Illness Chief Complaint: Wound Check Informant: Patient Onset: Today Narrative: 12-day postop laparoscopic appendectomy by Dr. Shaver. Missed follow-up appointment 4 days ago. States noted a little swollen area of her umbilicus previously opened up today with bloody drainage was currently dried. Mild tenderness in the region. Denies any increase heavy activities. No nausea or vomiting. No fevers. Prior similar symptoms: No Past Medical History - Allergies and Home Meds Allergies/Adverse Reactions: Allergies poison victor hugo extract Allergy (Severe, Verified 01/13/19 14:47) SEVERE Swelling coconut Allergy (Verified 01/13/19 14:47) Hives meperidine HCl [From Demerol] Allergy (Verified 01/13/19 14:47) Hives venom-honey bee [bee venom (honey bee)] Allergy (Verified 01/13/19 14:47) Hives Primary Care Physician: Butch Dutta MD [Primary Care Provider] - Surgical History: cholecystectomy, hysterectomy, - - sections ?2 Smoking Status: Current every day smoker Review of Systems General: Denies: Chills, Fever, Sweats Eyes: Denies: Visual changes - bilaterally, Diplopia ENT: Denies: Rhinorrhea, Sore throat Cardiovascular: Denies: Chest pain, Palpitations Respiratory: Denies: Dyspnea, Cough, Dyspnea on exertion Gastrointestinal: Denies: Abdominal pain, Nausea, Vomiting, Diarrhea, Melena, Hematochezia Genitourinary: Denies: Dysuria, Hematuria, Frequency Musculoskeletal: Denies: Back pain, Extremity Pain Skin: Denies: Rash, Wounds Neurological: Denies: Headache, Weakness, Numbness Physical Exam Vital Signs/Narrative: Vital Signs Temp Pulse Resp BP Pulse Ox 01/18/19 19:22 98.3 F 86 16 123/79 H 98 Inital Vital Signs reviewed: Yes General: Well nourished, Well developed, No Acute Distress Head: Normocephalic, Atraumatic Eyes: Perrl, EOMI ENT: Moist mucous membranes, No rhinorrhea Neck: Supple, Nontender Cardiovascular: Regular rate, Regular rhythm, No murmurs Respiratory: No distress, CTA bilaterally, Chest nontender Abdomen: Soft, Nondistended, Normal bowel sounds, - - 3 vertical laparoscopic incisions from umbilical down suprapubic. Umbilical region dry blood, no drainage, no surrounding erythema. Lower incisions clean, dry, intact. Back: Nontender, Normal Inspection Extremities: Nontender, No edema Skin: Normal color, No rash Neurological: Alert, Oriented x3, Cranial nerves II-XII grossly intact, Normal Strength, Normal Sensation Psychological: Normal affect, Normal Mood Diagnostic/Tx/Re-eval - Medical Decision Making Patient vital signs stable, nontoxic, well-appearing. History exam concerns for likely serosanguineous pocket that opened up and drained. There is no signs of infection she denies any fevers. I did discuss with her surgeon Dr. Shaver on my evaluation. She agrees with plan, starting ibuprofen as needed and following up in the office. Signs and symptoms discussed return. All questions were answered. ED Disposition - Plan for ED Patient: Disposition: Home or Assisted Living Diagnosis: Visit for wound check Instructions: POST OP WOUND CHECK, General Prescriptions: Ibuprofen [Motrin] 600 mg PO Q6H PRN PRN #20 tablet PRN Reason: Pain Score 1-10/10 Referrals: Butch Dutta MD [Primary Care Provider] - Bobbi Shaver MD [STAFF PHYSICIAN] - 3-5 Days
[2019-01-18] MEDS: Ibuprofen 600 MG Tablet PO (20:38)
[2019-01-18 20:39] VITALS: RESP 16
== END 2019-01-18 20:39 | disposition home or self-care (01) ==
LOC: ED 20:25
PROVIDERS: Emergency Provider Emergency Medicine; Family Provider Family Medicine; PCP Family Medicine
DX: Z48.01 Encounter for change or removal of surgical wound dressing (principal); F17.200 Nicotine dependence, unspecified, uncomplicated; Z90.49 Acquired absence of other specified parts of digestive tract
CPT/HCPCS: 99283

== ENCOUNTER 2019-03-13 17:01 | Emergency (ER) | payer MEDICAID, SELFPAY ==
[2019-03-13 17:01] VITALS: BP 151/73; PULSE 87; RESP 16; TEMP 36.3; O2SAT 98; BMI 44.9
--- NOTE | 2019-03-13 17:48 | ED.DCSUM_ITS ---
- ER Visit Summary Date of Service: 03/13/19 Chief Complaint: Vomiting and diarrhea History of Present Illness: The patient is a 33 F who presents the emergency department on day 3 of vomiting diarrhea. Symptoms began Thanks day. She denies any recent antibiotics. She is had no fevers. She notes a headache and a sensation of dry mouth. She also states she had an appendectomy a couple months ago and continues to have some drainage from her bellybutton. She has not discussed this with her surgeon. She saw her primary care physician last week who she states felt that it would eventually resolve. Physical Examination: Afebrile vital signs are stable Gen: Well-nourished well-developed Head: Normocephalic atraumatic Eyes: Perrl EOMI ENT: TMs clear no rhinorrhea moist mucous membranes Neck: Supple no lymphadenopathy no JVD nontender CVS: Regular rate rhythm no murmurs normal S1-S2 Respiratory: No distress clear to auscultation bilaterally chest nontender Abdomen: Soft mild diffuse tenderness palpation without guarding or rebound nondistended normal bowel sounds no masses Back: Nontender Extremity: Nontender no edema Skin: Normal color no rash Neuro: alert orientated ?3 CN II-XII intact normal strength sensation reflexes gait cerebellar Psych: Normal affect normal mood Test Results: BMP was obtained. This was normal. Emergency Department Course and Treatment: Patient received IV fluids and Zo sreedhar. Patient was advised for her umbilicus she should make an appointment with her surgeon. Do not see any emergent reason to consult surgery at this time. Impression: 1. Acute gastroenteritis This note was generated with [employer] dictation software. It may contain incorrect words, spelling, and punctuation that were not noted in review of the chart prior to signing ED Disposition - Plan for ED Patient: Disposition: Home or Assisted Living Instructions: GASTROENTERITIS, Viral (7y-Adult) Prescriptions: Ondansetron [Zofran Odt] 4 mg PO Q8H PRN PRN #14 tab PRN Reason: Nausea Prescription Printed Referrals: Butch Dutta MD [Primary Care Provider] - As Needed Bobbi Shaver MD [STAFF PHYSICIAN] - (call to arrange follow up to discuss your umbilicus) Additional Instructions: Imodium as needed for diarrhea
[2019-03-13] MEDS: Ondansetron 4 MG/2 ML Vial IV (17:56)
[2019-03-13] MEDS: 0.9% Normal Saline 1,000 ML 1000 ML IV (17:56)
[2019-03-13 18:16] LABS: Anion Gap 7 (5-15); BUN 7 mg/dL (7-18); BUN/Creat Ratio 11.3 RATIO (10-20); Calcium,Total 8.7 mg/dL (8.5-10.1); Chloride 108 mmol/L (98-107); Creatinine, Serum 0.62 mg/dL (0.55-1.02); EST Glomerular Filtration Rate 119 mL/min (>60); Est Glom Filt Rate - Afr Amer 144 mL/min (>60); Estimated Creatinine Clearance 117.22 ml/min; Glucose 88 mg/dL (74-106); Potassium 3.8 mmol/L (3.5-5.1); Sodium Level 140 mmol/L (136-145)
== END 2019-03-13 18:52 | disposition home or self-care (01) ==
PROVIDERS: Emergency Provider Emergency Medicine; Family Provider Family Medicine; PCP Family Medicine
DX: K52.9 Noninfective gastroenteritis and colitis, unspecified (principal); F17.200 Nicotine dependence, unspecified, uncomplicated
CPT/HCPCS: 80048; 96361; 96374; 99283; J7030; J2405

== ENCOUNTER 2019-04-28 19:46 | Emergency (ER) | payer MEDICAID, SELFPAY ==
[2019-04-28 19:47] VITALS: BP 156/111; PULSE 90; RESP 16; TEMP 36.7; O2SAT 97; BMI 42.7
[2019-04-28] MEDS: Ketorolac 30 MG/ML Syringe IV (20:53)
[2019-04-28] MEDS: 0.9% Normal Saline 1,000 ML 1000 ML IV (20:54)
[2019-04-28] MEDS: Metoclopramide 10 MG/2 ML Vial IV (20:55)
[2019-04-28] MEDS: DiphenhydrAMINE 50 MG/ML Syringe 25 MG IV (20:56)
[2019-04-28 22:31] VITALS: BP 106/58; PULSE 83; RESP 15; O2SAT 98
[2019-04-28] MEDS: Morphine 4 MG/ML Syringe IV (22:31)
--- NOTE | 2019-04-28 22:49 | ED.VISSUMM ---
- ER Visit Summary Date of Service: 04/28/19 Chief Complaint: [Headache] History of Present Illness: The patient is a 33 F [presents to the emergency department with complaint of a headache that she states is a migraine. Patient states she gets them frequently. This is typical of her migraines. Headache is behind her left eye and extends of the left side of her head. She describes throbbing and photophobia. He has had nausea but no vomiting. She denies any falls or head injuries. She denies recent illness. Patient also has a lesion on the top of her scalp that she is worried about possibly being MRSA. Patient states she picked that it and it is been there for about a week. She is had no fevers.] Physical Examination: [HEENT-PERRLA, EOMI. Cranial nerves II through XII grossly intact. TMs clear. Mucous membranes moist. No adenopathy. She has a superficial excoriated area to the left posterior scalp without any significant erythema or purulence. Cardiovascular-regular rate and rhythm without murmur or ectopy Lungs-clear to auscultation, chest wall stable without crepitus or subcu emphysema Abdomen-normoactive bowel sounds, soft, nontender, no rebound or rigidity, no peritoneal signs. Neuro taip-[id number]-hwqh and heel crowell testing within normal limits, negative Romberg, negative pronator drift, fundi benign Extremities-intact ?4, normal range of motion, normal pulses, atraumatic] Test Results: [None indicated] Emergency Department Course and Treatment: An IV line was established and he received Reglan, Benadryl, and Toradol and had some mild pain relief with that. Patient was given morphine 4 mg IV and her headache mostly resolved. Given a dose of Bactrim. [] Treatment Plan: [Follow-up with primary care physician in 3 to 5 days. Patient will be treated with Bactrim for 10 days.] Disposition: [Discharged home in stable condition.] Impression: [Migrainous cephalgia Scalp dermatitis-suspect MRSA] This note was generated with [employer] software. It may contain incorrect words, spelling, and punctuation that were not noted in review of the chart prior to signing ED Disposition - Plan for ED Patient: Referrals: Butch Dutta MD [Primary Care Provider] -
--- NOTE | 2019-04-28 22:52 | ED.DEP ---
ED Disposition - Plan for ED Patient: Instructions: ED, Migraine (Classical), DERMATITIS, Non-Specific Prescriptions: Smz/Tmp Ds [Bactrim Ds] 1 tab PO BID #20 tab Prescription Printed Referrals: Butch Dutta MD [Primary Care Provider] - 3-5 Days
[2019-04-28 23:02] VITALS: BP 123/84; PULSE 81; RESP 16; O2SAT 97
== END 2019-04-28 23:03 | disposition home or self-care (01) ==
LOC: ED 21:09
PROVIDERS: Emergency Provider Emergency Medicine; PCP Family Medicine
DX: G43.909 Migraine, unspecified, not intractable, without status migrainosus (principal); L30.9 Dermatitis, unspecified
CPT/HCPCS: 96361; 96374; 96375; 99283; J7030; A4216

== ENCOUNTER 2019-05-12 17:18 | Emergency (ER) | payer MEDICAID, SELFPAY ==
[2019-05-12 17:18] VITALS: BP 139/90; PULSE 82; RESP 16; TEMP 37.1; O2SAT 96; BMI 41.5
[2019-05-12] MEDS: Ketorolac 30 MG/ML Syringe IV (18:12)
[2019-05-12] MEDS: Metoclopramide 10 MG/2 ML Vial IV (18:12)
[2019-05-12] MEDS: DiphenhydrAMINE 50 MG/ML Syringe 25 MG IV (18:14)
--- NOTE | 2019-05-12 20:21 | ED.DCSUM_ITS ---
History of Present Illness Chief Complaint: Headache Detail of Chief Complaint: Unilateral throbbing headache with change in vision Informant: Patient Onset: Today Context: Sudden Onset Timing: Continuous Quality: Throbbing unilateral Location: Left Current Severity: Moderate Maximum Severity: Severe Worsened by: Photophobia and sonophobia Relieved by: Nothing Associated Symptoms: Monocular blurred vision, left Narrative: She has a 33-year-old woman with history of migraine headaches who presents with throbbing left-sided headache with visual disturbance on the left. She does report wavy lines and blurred vision. She denies fever, chills night sweats. Denies rhinorrhea, congestion or postnasal drainage. Denies trouble with speech or swallowing. Denies neck pain or neck stiffness. She denies cardiac resp iratory symptoms. Does report nausea without vomiting diarrhea. Denies urologic symptoms. She denies paresthesia, anesthesia or motor weakness. She denies trouble with balance. There is no memory impairment. Prior similar symptoms: No Recent Illness/Hospitalization: No - Past Medical History (1) Migraine headache Status: Acute (2) History of renal calculi Status: Acute Past Medical History - Allergies and Home Meds Allergies/Adverse Reactions: Allergies poison victor hugo extract Allergy (Severe, Verified 04/28/19 19:50) SEVERE Swelling coconut Allergy (Verified 04/28/19 19:50) Hives meperidine HCl [From Demerol] Allergy (Verified 04/28/19 19:50) Hives venom-honey bee [bee venom (honey bee)] Allergy (Verified 04/28/19 19:50) Hives Primary Care Physician: Butch Dutta MD [Primary Care Provider] - Prior records reviewed: Yes Surgical History: cholecystectomy, hysterectomy, - - sections ?2 Lives: Spouse/ Significant Other Smoking Status: Current every day smoker Drugs: None Review of Systems General: Denies: Chills, Fever, Malaise, Sweats, Weight loss Eyes: Reports: Blurred vision - left. Denies: Visual changes - bilaterally, Blurred vision - right, Diplopia ENT: Denies: Rhinorrhea, Sore throat Cardiovascular: Denies: Chest pain, Palpitations Respiratory: Denies: Dyspnea, Cough, Dyspnea on exertion, Orthopnea Gastrointestinal: Denies: Abdominal pain, Nausea, Vomiting, Diarrhea, Constipation, Melena, Hematochezia Genitourinary: Denies: Dysuria, Hematuria, Frequency Musculoskeletal: Denies: Myalgias, Arthralgias, Neck pain, Back pain, Extremity Pain Skin: Denies: Rash, Abscess, Abrasions, Wounds Neurological: Reports: Headache. Denies: Weakness, Parasthesia, Numbness Hematologic: Denies: Easy bruising, Easy bleeding Allergy: Denies: Uticaria, Swelling of the mouth Physical Exam Vital Signs/Narrative: Vital Signs Temp Pulse Resp BP Pulse Ox 05/12/19 17:18 98.8 F 82 16 139/90 H 96 Inital Vital Signs reviewed: Yes General: Well nourished, Well developed, Obese, No Acute Distress Head: Normocephalic, Atraumatic Eyes: Perrl, EOMI. Negative for: Pale conjunctiva, Scleral icterus ENT: Moist mucous membranes, No rhinorrhea. Negative for: TM's clear Neck: Supple, Nontender, No lymphadenopathy, No JVD Cardiovascular: Regular rate, Regular rhythm, No murmurs, Normal S1, Normal S2 Respiratory: No distress, CTA bilaterally, Chest nontender Abdomen: Soft, Nontender, Nondistended, Normal bowel sounds Back: Nontender, Normal Inspection Extremities: Nontender, No edema Skin: Normal color, No rash Neurological: Alert, Oriented x3, Cranial nerves II-XII grossly intact, Normal Strength, Normal Sensation, Normal DTR - There is no clonus or Babinski sign, Normal Gait, - - Other testing is normal. Psychological: Normal affect, Normal Mood Diagnostic/Tx/Re-eval - Medical Decision Making Neuro exam is normal. Patient's history is consistent with ocular migraine. She was treated with Benadryl, Reglan and Toradol. She has resolution in told the nurse she like to go home. Differential diagnosis includes sinus headache, intracranial bleed, ocular migraine ED Disposition - Plan for ED Patient: Disposition: Home or Assisted Living Diagnosis: Ocular migraine Instructions: ED, Migraine (Classical) Referrals: Butch Dutta MD [Primary Care Provider] - 1-2 Weeks
[2019-05-12 20:36] VITALS: BP 128/74; PULSE 71; RESP 16; O2SAT 97
== END 2019-05-12 20:38 | disposition home or self-care (01) ==
PROVIDERS: Emergency Provider Emergency Medicine; PCP Family Medicine
DX: G43.B0 Ophthalmoplegic migraine, not intractable (principal); E66.9 Obesity, unspecified; F17.200 Nicotine dependence, unspecified, uncomplicated; Z68.41 Body mass index [BMI] 40.0-44.9, adult
CPT/HCPCS: 96374; 96375; 99283; A4216

== ENCOUNTER 2019-09-28 20:14 | Emergency (ER) | payer MEDICAID, SELFPAY ==
[2019-09-28 20:15] VITALS: BP 134/84; PULSE 83; RESP 15; TEMP 36.6; O2SAT 97; BMI 40.9
--- NOTE | 2019-09-28 20:25 | ED.DCSUM_ITS ---
- ER Visit Summary Date of Service: 09/28/19 Chief Complaint: Dental pain History of Present Illness: The patient is a [address] De La Fuente. She had gone to immediate dent in [place] previously. She does not have a local dentist. She reports that she has dental pain that began yesterday. Says sharp, throbbing pain is 10 of 10 worsening to 10 currently. Is worsened by eating. Is unrelieved by ibuprofen Tylenol. She does have hot and cold sensitivity. Physical Examination: Vitals: Stable. Afebrile. Mouth: No trismus. No edema of the floor of the mouth. Pain with percussion of right maxillary first premolar which shows obvious caries. There is swelling with multiple small punctate vesicles superior to this. These are purulent filled, but are draining with minimal pressure. General: A&O x 3. NAD. Cardiovascular exam: Regular rate and rhythm, no murmur, rub or gallop. Respiratory exam: Clear to auscultation bilaterally. No wheezes or stridor. Abdominal exam: Soft, nontender, nondistended, normal bowel sounds. No peritoneal signs. Extremity: No clubbing, cyanosis, or edema. Emergency Department Course and Treatment: Patient was treated with penicillin and [place]. She is resting comfortably. Treatment Plan: Patient will be discharged with penicillin and [place]. Instructed to follow-up the dentist as soon as possible. She is given a list of local dentists. Return to the emergency department for any worsening symptoms. Disposition: To home in improved and stable condition. Impression: 1. Dental abscess. This note was generated with [employer] dictation software. It may contain incorrect words, spelling, and punctuation that were not noted in review of the chart prior to signing ED Disposition - Plan for ED Patient: Disposition: Home or Assisted Living Instructions: ED ABSCESS DENTAL Prescriptions: Hydrocodone Bitart/Apap 5-325 [[place] 5MG-325MG] 1 tab PO Q4H PRN PRN 2 Days #10 tab PRN Reason: Pain Prescription Printed Penicillin V Potassium 500 mg PO 4X/DAY #40 tab Prescription Printed Referrals: Dentist,Your [STAFF PHYSICIAN] - As soon as possible
[2019-09-28] MEDS: HYDROcodone Bitartrate/Apap 5/325 Tablet PO (20:46)
[2019-09-28] MEDS: Penicillin Vk 250 MG Tablet 500 MG PO (20:47)
== END 2019-09-28 21:05 | disposition home or self-care (01) ==
LOC: ED 20:35
PROVIDERS: Emergency Provider Emergency Medicine; PCP Family Medicine
DX: K08.89 Other specified disorders of teeth and supporting structures (principal); K04.7 Periapical abscess without sinus; J45.909 Unspecified asthma, uncomplicated; Z72.0 Tobacco use
CPT/HCPCS: 99282

== ENCOUNTER 2019-12-19 21:10 | Emergency (ER) | payer MEDICAID, SELFPAY ==
[2019-12-19 21:10] VITALS: BP 153/89; PULSE 98; RESP 16; TEMP 36.8; O2SAT 100; BMI 41.3
--- NOTE | 2019-12-19 21:23 | CT_ITS ---
HISTORY: Nausea. Vomiting. Left upper quadrant lump on Friday. Hysterectomy. One ovary remains. Cholecystectomy. TECHNIQUE: Helically acquired images were obtained of the abdomen and pelvis following the intravenous administration of 100 ML of Isovue-370 Iodinated contrast. 2D reformats. Oral contrast was administered. A radiation dose optimization technique was used for this scan. COMPARISON: CT scan of the abdomen and pelvis from August 30, 2018 FINDINGS: # of images incl. paperwork: [id number] LUNG BASES: Clear. CT abdomen: Bones are unremarkable. The gallbladder has been resected. Liver, spleen, pancreas, and adrenal glands, are normal. The kidneys are normal. The aorta is normal. CT pelvis: No ascites is present. The appendix has been resected. The uterus has been resected. The bladder is normal. On the left ovary there is a 3 cm hypodense structure consistent with a benign simple follicle. Contrary to the history, and appears as if the right ovary remains and is normal in appearance. The follicle on the left ovary is new since August 30, 2018 Bowel-gas pattern is normal. CT/Abdomen/Pelvis WITH Contrast IMPRESSION: Cholecystectomy. Appendectomy. Hysterectomy. Individualized dose optimization techniques were used for this CT. at 2353 Reported and signed by: Hill Chamorro MD Electronically Signed: Hill Chamorro MD at 23:52 EDT Tel , Service support ,
--- NOTE | 2019-12-19 21:26 | ED.VIS.GEN ---
History of Present Illness Chief Complaint: Abd Pain Informant: Patient Onset: Days Context: Gradual Onset Current Severity: Moderate Maximum Severity: Moderate Narrative: Patient presents with left upper quadrant pain and swelling. She states last evening, December 15 she was drinking some alcohol that did not agree with her. She had nausea and vomiting that evening. She woke up the next morning with a lump to her left upper quadrant and she is concerned she may have a hernia. She states that she did continue to have vomiting throughout the day on Friday and Friday. She still feels nauseated today and still has a painful lump in the left upper quadrant of her abdomen. She denies fever or chills. She has passed liquid stool. Prior abdominal surgeries include cholecystectomy, appendectomy, hysterectomy, x2. - Past Medical History (1) Asthma Status: Chronic (2) Anxiety and depression Status: Chronic (3) Cervical cancer Status: Resolved (4) History of renal calculi Status: Chronic (5) Migraine headache Status: Chronic Past Medical History - Allergies and Home Meds Allergies/Adverse Reactions: Allergies poison victor hugo extract Allergy (Severe, Verified 12/19/19 21:13) SEVERE Swelling coconut Allergy (Verified 12/19/19 21:13) Hives meperidine HCl [From Demerol] Allergy (Verified 12/19/19 21:13) Hives venom-honey bee [bee venom (honey bee)] Allergy (Verified 12/19/19 21:13) Hives Primary Care Physician: Butch Dutta MD [Primary Care Provider] - Prior records reviewed: Yes Surgical History: cholecystectomy, hysterectomy, - - sections ?2 Lives: Spouse/ Significant Other Smoking Status: Current every day smoker Review of Systems General: Denies: Chills, Fever Eyes: Denies: Visual changes - bilaterally ENT: Denies: Bilateral ear pain Cardiovascular: Denies: Chest pain Respiratory: Denies: Dyspnea, Cough Gastrointestinal: Reports: Abdominal pain, Nausea, Vomiting Genitourinary: Denies: Dysuria Musculoskeletal: Denies: Swelling, Extremity Pain Skin: Denies: Rash Neurological: Denies: Headache Hematologic: Denies: Easy bruising, Easy bleeding Allergy: Denies: Uticaria Physical Exam Vital Signs/Narrative: Vital Signs Temp Pulse Resp BP Pulse Ox 12/19/19 21:10 98.3 F 98 16 153/89 H 100 Inital Vital Signs reviewed: Yes General: Well nourished, Well developed Head: Normocephalic ENT: Moist mucous membranes Neck: Supple Cardiovascular: Regular rate, Regular rhythm Respiratory: No distress, CTA bilaterally Abdomen: Soft, Tender - Patient has large area of ecchymosis in the left upper quadrant with edema and tenderness., Hypoactive bowel sounds. Negative for: Guarding, Rebound tenderness Skin: - - Ecchymosis to the left upper quadrant of the abdomen as noted above. Neurological: Alert, Oriented x3 Psychological: Normal affect Diagnostic/Tx/Re-eval 12/19/19 21:23 Abdomen/Pelvis WITH Contrast [CT] Stat Laboratory Results 12/19/19 12/19/19 12/19/19 21:34 21:34 21:34 WBC 11.2 H RBC 4.10 L Hgb 13.0 Hct 37.8 MCV 92.2 MCH 31.7 MCHC 34.4 RDW Std Deviation 40.4 RDW Coeff of [place] 11.9 Plt Count 314 MPV 8.9 Immature Gran % (Auto) 0.300 Neut % (Auto) 54.6 Lymph % (Auto) 35.3 Dickens % (Auto) 6.9 Eos % (Auto) 2.2 Baso % (Auto) 0.7 Absolute Neuts (auto) 6.1 Absolute Lymphs (auto) 3.96 Nucleated RBC % 0 Sodium 139 Potassium 3.5 Chloride 108 H Carbon Dioxide 25.0 Anion Gap 6 BUN 11 Creatinine 0.72 Estim Creat Clear Calc 104.04 Est GFR (MDRD) Af Amer 121 Est GFR (MDRD) Non-Af 100 BUN/Creatinine Ratio 15.4 Glucose 87 Lactic Acid 0.8 Calcium 8.7 Total Bilirubin 0.30 Direct Bilirubin 0.09 AST 11 L ALT 11 L Alkaline Phosphatase 86 Total Protein 6.8 Albumin 3.5 Globulin 3.3 Lipase 93 Urine Color Urine Clarity Urine pH Ur Specific [place] Urine Protein Urine Glucose (UA) Urine Ketones Urine Occult Blood Urine Nitrite Urine Bilirubin Urine Urobilinogen Ur Leukocyte Esterase Urine RBC Urine WBC Ur Squamous Epith Cells Ur Renal Epithelial Cell Calcium Oxalate Crystal Amorphous Sediment Urine Bacteria Urine Mucus 12/19/19 21:36 WBC RBC Hgb Hct MCV MCH MCHC RDW Std Deviation RDW Coeff of [place] Plt Count MPV Immature Gran % (Auto) Neut % (Auto) Lymph % (Auto) Dickens % (Auto) Eos % (Auto) Baso % (Auto) Absolute Neuts (auto) Absolute Lymphs (auto) Nucleated RBC % Sodium Potassium Chloride Carbon Dioxide Anion Gap BUN Creatinine Estim Creat Clear Calc Est GFR (MDRD) Af Amer Est GFR (MDRD) Non-Af BUN/Creatinine Ratio Glucose Lactic Acid Calcium Total Bilirubin Direct Bilirubin AST ALT Alkaline Phosphatase Total Protein Albumin Globulin Lipase Urine Color Straw Urine Clarity Cloudy Urine pH 5.0 Ur Specific [place] 1.030 Urine Protein 15 H Urine Glucose (UA) Normal Urine Ketones Negative Urine Occult Blood Negative Urine Nitrite Negative Urine Bilirubin Negative Urine Urobilinogen 1 H Ur Leukocyte Esterase Negative Urine RBC 0 SEEN Urine WBC 5-10 SEEN Ur Squamous Epith Cells 25-50 SEEN Ur Renal Epithelial Cell 0-5 SEEN Calcium Oxalate Crystal 1+ Amorphous Sediment 1+ Urine Bacteria 4+ Urine Mucus 0 SEEN - Medical Decision Making Patient was given IV fluids, morphine, and Zofran. On repeat evaluation she states pain is mildly improved but still present. She will be given an additional dose of pain medication. Blood work is discussed with her. CT scan will be signed out to oncoming physician. Patient is aware that oncoming physician will discuss test results with her for final disposition. ED Disposition - Plan for ED Patient: Referrals: Butch Dutta MD [Primary Care Provider] -
[2019-12-19] MEDS: Ondansetron 4 MG/2 ML Vial IV (21:36)
[2019-12-19] MEDS: 0.9% Normal Saline 1,000 ML 150 ML IV (21:36)
[2019-12-19] MEDS: Morphine 4 MG/ML Syringe IV (21:37)
[2019-12-19 21:41] LABS: Mucous, Urine 0 SEEN /hpf (<or=2+); Red Blood Cells-Urine 0 SEEN /hpf (0-5)
[2019-12-19 21:44] LABS: Color, Urine Straw (Yellow); Glucose, Dipstick Normal (Normal); Ketone-Dipstick Negative (Negative); Leukocyte Esterase-Dipstick Negative /ul (Negative); Nitrite-Dipstick Negative (Negative); Occult Blood-Urine Negative /ul (Negative); Protein-Dipstick 15 mg/dl (Negative); Urine Bilirubin Dipstick Negative (Negative); Urine Clarity Cloudy (Clear); Urine Urobilinogen 1 mg/dl (Normal)
[2019-12-19 21:45] LABS: Absolute Lymphocyte Count 3.96 X10^3/uL (0.83-4.51); Absolute Neutrophil Count 6.1 X10^3/uL (2.0-7.7); Basophil# 0.08 X10^3/uL; Basophil% 0.7 % (0-1); Eosinophil# 0.25 X10^3/uL; Eosinophils% 2.2 % (0-5); Hematocrit 37.8 % (37-47); Lymphocyte # 3.96 X10^3/ul (4.0); Lymphocyte % 35.3 % (19-41); Mean Corp Hgb Conc 34.4 g/dL (32-36); Mean Corpuscular Hgb 31.7 pg (27.0-32.0); Mean Corpuscular Volume 92.2 fL (81-99); Mean Platelet Vol. 8.9 fl (6.2-12.0); Monocyte# 0.77 X10^3/uL; Monocyte% 6.9 % (0-10); NRBC Flagged by Analyzer 0 % (0-5); Neutrophil # 6.12 X10^3/uL (2.7-7.7); Neutrophil % 54.6 % (47-70); Platelet Count 314 K/mm3 (150-450); RBC Distribution Width CV 11.9 % (11.6-14.6); RBC Distribution Width SD 40.4 fl (35.1-43.9); White Blood Count 11.2 K/mm3 (4.4-11.0)
[2019-12-19 22:00] LABS: AST(SGOT) 11 U/L (15-37); Alanine Aminotransfer ALT/SGPT 11 U/L (13-56); Albumin, Serum 3.5 g/dL (3.2-5.0); Alkaline Phosphatase 86 U/L (45-117); Anion Gap 6 (5-15); BUN 11 mg/dL (7-18); BUN/Creat Ratio 15.4 RATIO (10-20); Bilirubin, Direct 0.09 mg/dL (0.00-0.30); Calcium,Total 8.7 mg/dL (8.5-10.1); Chloride 108 mmol/L (98-107); Creatinine, Serum 0.72 mg/dL (0.55-1.02); EST Glomerular Filtration Rate 100 mL/min (>60); Est Glom Filt Rate - Afr Amer 121 mL/min (>60); Estimated Creatinine Clearance 104.04 ml/min; Globulin 3.3 g/dL (2.2-4.2); Glucose 87 mg/dL (74-106); Lipase 93 U/L (73-393); Potassium 3.5 mmol/L (3.5-5.1); Protein, Total 6.8 g/dL (6.4-8.2); Sodium Level 139 mmol/L (136-145)
--- NOTE | 2019-12-19 22:00 | ED.RN ---
PT COMPLETED ORAL CONTRAST. CT NOTIFIED
[2019-12-19 22:06] LABS: White Blood Cells 5-10 SEEN /hpf (0-5)
[2019-12-19 22:07] LABS: Amorphous Sediment 1+; Bacteria 4+ /hpf (None Seen); Calcium Oxalate Crystals Ur 1+ /hpf (<or=2+); Renal Epithelial Cells 0-5 SEEN /hpf (0-5); Squamous Epithelial Cells - UA 25-50 SEEN /hpf (5-10)
[2019-12-19 22:14] LABS: Lactic Acid 0.8 mmol/L (0.4-1.9)
[2019-12-19] MEDS: HYDROmorphone 0.5 MG/0.5 ML SYRINGE IV (22:57)
[2019-12-19 22:58] VITALS: BP 117/81; PULSE 66; RESP 15; O2SAT 98
--- NOTE | 2019-12-19 23:57 | ED.VISSUMM ---
- ER Visit Summary Date of Service: 12/19/19 This patient was checked out to me with a CT of the abdomen pelvis pending. Test Results: Clinical Impression(s) from Imaging Studies Abdomen/Pelvis CT 12/19/19 21:23 IMPRESSION: Cholecystectomy. Appendectomy. Hysterectomy. Individualized dose optimization techniques were used for this CT. at 2353 Reported and signed by: Hill Chamorro MD Electronically Signed: Hill Chamorro MD at 23:52 EDT Tel , Service support , Emergency Department Course and Treatment: Patient is resting comfortably without complaint. Treatment Plan: Patient be discharged with symptomatic care. Ice the area. Use Tylenol and/or ibuprofen for pain. Follow-up her primary care physician 1 week if not improving. Return to the emergency department for any worsening symptoms. Disposition: To home in improved and stable condition. Impression: 1 1. Contusion left upper quadrant. This note was generated with [employer] dictation software. It may contain incorrect words, spelling, and punctuation that were not noted in review of the chart prior to signing ED Disposition - Plan for ED Patient: Instructions: ED Hematoma Referrals: Butch Dutta MD [Primary Care Provider] - 1 Week if not improving
[2019-12-20 00:20] VITALS: BP 126/81; PULSE 73; RESP 15; O2SAT 98
== END 2019-12-20 00:25 | disposition home or self-care (01) ==
LOC: ED 21:17
PROVIDERS: Emergency Provider Emergency Medicine; PCP Family Medicine
DX: S30.1XXA Contusion of abdominal wall, initial encounter (principal); X58.XXXA Exposure to other specified factors, initial encounter; Y93.9 Activity, unspecified; Y92.9 Unspecified place or not applicable; F17.200 Nicotine dependence, unspecified, uncomplicated; Z90.49 Acquired absence of other specified parts of digestive tract; Z90.710 Acquired absence of both cervix and uterus
CPT/HCPCS: 74177; 80048; 80076; 81001; 83605; 83690; 85025; 96361; 96374; 96375; 99283; J7030; Q9967; J2405

== ENCOUNTER 2020-02-03 20:47 | Emergency (ER) | payer MEDICAID, SELFPAY ==
[2020-02-03 20:48] VITALS: BP 152/73; PULSE 88; RESP 17; TEMP 35.8; O2SAT 100; BMI 38.9
--- NOTE | 2020-02-03 23:01 | ED.VIS.GEN ---
History of Present Illness Chief Complaint: Headache Informant: Patient Narrative: 34-year-old female with history of migraine headaches presents with presumed migraine. She states is typical of her migraines in the past. She states she started having a headache earlier today and this slowly transitioned into a migraine. She has phonophobia and photophobia. She has mild nausea. She denies any head injury. She has not had any fever or chills. - Past Medical History (1) Anxiety and depression Status: Chronic (2) Asthma Status: Chronic (3) Migraine headache Status: Chronic Past Medical History - Allergies and Home Meds Allergies/Adverse Reactions: Allergies poison victor hugo extract Allergy (Severe, Verified 02/03/20 20:48) SEVERE Swelling coconut Allergy (Verified 02/03/20 20:48) Hives meperidine HCl [From Demerol] Allergy (Verified 02/03/20 20:48) Hives venom-honey bee [bee venom (honey bee)] Allergy (Verified 02/03/20 20:48) Hives Primary Care Physician: Butch Dutta MD [Primary Care Provider] - Prior records reviewed: Yes Past Medical History: - - Reviewed in problem list Surgical History: cholecystectomy, hysterectomy, - - sections ?2 Smoking Status: Current every day smoker Review of Systems General: Denies: Chills, Fever, Sweats Eyes: Reports: - - Photophobia. Denies: Visual changes - bilaterally, Diplopia ENT: Denies: Rhinorrhea, Sore throat Cardiovascular: Denies: Chest pain, Palpitations Respiratory: Denies: Dyspnea, Cough, Dyspnea on exertion Gastrointestinal: Denies: Abdominal pain, Nausea, Vomiting, Diarrhea, Melena, Hematochezia Genitourinary: Denies: Dysuria, Hematuria, Frequency Musculoskeletal: Denies: Back pain, Extremity Pain Skin: Denies: Rash, Abscess Neurological: Reports: Headache. Denies: Weakness, Parasthesia, Numbness Psych: Denies: Depression, Anxiety Physical Exam Vital Signs/Narrative: Vital Signs Temp Pulse Resp BP Pulse Ox 02/03/20 20:48 96.4 F L 88 17 152/73 H 100 Inital Vital Signs reviewed: Yes General: Well nourished, Well developed Head: Normocephalic, Atraumatic Eyes: Perrl, EOMI. Negative for: Pale conjunctiva ENT: Moist mucous membranes, No rhinorrhea Cardiovascular: Regular rate, Regular rhythm Respiratory: No distress, CTA bilaterally Skin: Normal color, No rash. Negative for: Cyanosis, Diaphoresis Neurological: Alert, Oriented x3 Psychological: Normal affect, Normal Mood Diagnostic/Tx/Re-eval - Medical Decision Making 34-year-old female presenting with migraine headache. She states is consistent with previous migraines. She rates it at 8 of 10. She is given Reglan, Benadryl, Toradol. On reevaluation her headache is resolved. At this point I feel she is safe to be discharged home. She is given return precautions. Patient stable for discharge. Impression: 1. Migraine ED Disposition - Plan for ED Patient: Disposition: Home or Assisted Living Instructions: ED, Migraine (Classical) Referrals: Butch Dutta MD [Primary Care Provider] -
[2020-02-03] MEDS: Metoclopramide 10 MG/2 ML Vial IV (23:33)
[2020-02-03] MEDS: Ketorolac 15 MG/ML Vial IM (23:33)
[2020-02-03] MEDS: DiphenhydrAMINE 50 MG/ML Syringe 25 MG IV (23:33)
[2020-02-03 23:37] VITALS: RESP 18
== END 2020-02-04 00:28 | disposition home or self-care (01) ==
PROVIDERS: Emergency Provider Student in an Organized Health Care Education/Training Program; PCP Family Medicine
DX: G43.909 Migraine, unspecified, not intractable, without status migrainosus (principal); F17.200 Nicotine dependence, unspecified, uncomplicated
CPT/HCPCS: 96372; 96374; 96375; 99282; J7030; A4216

== ENCOUNTER 2020-02-24 09:23 | Emergency (ER) | payer MEDICAID, SELFPAY ==
[2020-02-24 09:26] VITALS: BP 154/99; PULSE 109; RESP 16; TEMP 36.2; O2SAT 98; BMI 40.3
--- NOTE | 2020-02-24 09:38 | RAD_ITS ---
STUDY: X-RAY - RIGHT ANKLE REASON FOR EXAM: Female, 34 years old. FELL WHILE RUNNING TECHNIQUE: 3 view(s) of the ankle. COMPARISON: None. FINDINGS: Normal visualized distal tibia and fibula. The patient is status post ORIF of the distal fibula as well as screw fixation of the medial malleolus. Normal tibiotalar articulation and ankle mortise. Normal visualized talus and calcaneus. The visualized subtalar, talonavicular, calcaneocuboid and tarsal articulations are normal. The soft tissue structures are unremarkable. RAD/Ankle min 3 Views IMPRESSION: Status post ORIF of the bimalleolar regions. No acute abnormality is seen. Electronically Signed: John Penny, at 10:13 EST , Service support ,
--- NOTE | 2020-02-24 09:44 | ED.VIS.GEN ---
History of Present Illness Chief Complaint: Lower Extremity Injury Informant: Patient Onset: Yesterday Current Severity: Moderate Maximum Severity: Moderate Narrative: Patient presents secondary to right ankle pain. She had surgery on her right ankle not quite 2 years ago by an orthopedic surgeon at [facility]. Patient states last night she was running and stepped in a hole, turning her right ankle and falling. She said increased pain to that right ankle since that time. She denies any other injury. - Past Medical History (1) Anxiety and depression Status: Chronic (2) Asthma Status: Chronic (3) Migraine headache Status: Chronic Past Medical History - Allergies and Home Meds Allergies/Adverse Reactions: Allergies poison victor hugo extract Allergy (Severe, Verified 02/24/20 09:25) SEVERE Swelling coconut Allergy (Verified 02/24/20 09:25) Hives meperidine HCl [From Demerol] Allergy (Verified 02/24/20 09:25) Hives venom-honey bee [bee venom (honey bee)] Allergy (Verified 02/24/20 09:25) Hives Primary Care Physician: Butch Dutta MD [Primary Care Provider] - Prior records reviewed: Yes Surgical History: cholecystectomy, hysterectomy, - - sections ?2 Smoking Status: Current every day smoker Review of Systems General: Denies: Chills, Fever Eyes: Denies: Visual changes - bilaterally ENT: Denies: Bilateral ear pain Cardiovascular: Denies: Chest pain Respiratory: Denies: Dyspnea, Cough Gastrointestinal: Denies: Abdominal pain, Nausea, Vomiting, Diarrhea Genitourinary: Denies: Dysuria Musculoskeletal: Reports: Extremity Pain Skin: Denies: Rash Neurological: Denies: Headache Hematologic: Denies: Easy bruising, Easy bleeding Allergy: Denies: Uticaria Physical Exam Vital Signs/Narrative: Vital Signs Temp Pulse Resp BP Pulse Ox 02/24/20 09:26 97.2 F L 109 H 16 154/99 H 98 Inital Vital Signs reviewed: Yes General: Well nourished, Well developed Head: Normocephalic ENT: Moist mucous membranes Neck: Supple Cardiovascular: Regular rate, Regular rhythm Respiratory: No distress, CTA bilaterally Abdomen: Soft, Nontender Extremities: - - Tenderness palpation with mild edema to the lateral malleolus of the right ankle. No pain over the foot itself. No pain at the proximal fibula or knee. Skin: Normal color Neurological: Alert, Oriented x3 Psychological: Normal affect Diagnostic/Tx/Re-eval Impressions Ankle X-Ray 02/24/20 09:38 IMPRESSION: Status post ORIF of the bimalleolar regions. No acute abnormality is seen. Electronically Signed: John Penny, at 10:13 EST , Service support , 02/24/20 09:38 Ankle min 3 Views [RAD] Stat - Medical Decision Making Patient was given a tab of [place] for pain control. X-ray results are discussed with her. She be placed in Aircast and crutches. She will be given naproxen as well as a few [place] for breakthrough pain. She is to follow with her orthopedic doctor in [place] for any continued symptoms. ED Disposition - Plan for ED Patient: Disposition: Home or Assisted Living Diagnosis: Ankle sprain Instructions: ED Sprain Ankle W X Ray Prescriptions: Naproxen [Naprosyn] 500 mg PO BID PRN PRN #20 tab PRN Reason: Pain Score 4-10 Transmission Status: Pending to [facility] Hydrocodone Bitart/Apap 5-325 [[place] 5MG-325MG] 1 tablet PO Q6H PRN PRN 3 Days #10 tablet PRN Reason: Pain Transmission Status: Sent to [facility] Referrals: Butch Dutta MD [Primary Care Provider] - Additional Instructions: Follow-up with your orthopedic surgeon in [place] for any continued problems.
[2020-02-24] MEDS: HYDROcodone Bitartrate/Apap 5/325 Tablet PO (10:23)
--- NOTE | 2020-02-24 10:45 | ED.RN ---
pt reports that she has crutches at home declines cruthes from ed
== END 2020-02-24 10:46 | disposition home or self-care (01) ==
PROVIDERS: Emergency Provider Emergency Medicine; PCP Family Medicine
DX: S93.401A Sprain of unspecified ligament of right ankle, initial encounter (principal); X50.1XXA Overexertion from prolonged static or awkward postures, initial encounter; Y93.02 Activity, running; Y92.9 Unspecified place or not applicable; Y99.8 Other external cause status; F17.200 Nicotine dependence, unspecified, uncomplicated
CPT/HCPCS: 73610; 99283

== ENCOUNTER 2020-02-28 14:30 | Outpatient (RCR) | payer MEDICAID, SELFPAY ==
--- NOTE | 2020-02-01 14:02 | HP.PTEVAL_ITS ---
Patient's Visit Information FLORIDA BALTAZAR is a 34 year old F referred to Physical Therapy by KATHY FELIPE with a diagnosis of R ankle pain. Date of Evaluation: 02/01/20 Physical Therapist: Isiah Moore, PT, ATC - Visit Plan Frequency: 2-3x /Week Duration: 4-6 Weeks Plan: R ankle strengthening, stretching, balance and proprio, bike, and HEP - Subjective Pt reports R ankle has been sore for over one year. Pt notes she fractured her R ankle 2 years ago which required ORIF. Pt notes her R ankle healed and recovered well until she fell again which resulted in pain. Pt reports the pain has progressively worsened over the past 6 months. Pt notes she was told she either needed to have surgery again on that ankle, or she needed to try PT and so she is here today to begin her therapy. Pt reports she is unable to stand for a long period of time, and has difficulty with prolonged ambulation secondary to pain. Pt also notes she has to negotiate stairs one step at a time. No tingling or numbness at this time. Pt notes sleep difficulty secondary to pain. Pt has had recent xrays which revealed everything is still in place. 4/10 pain at rest, 8/10 pain at worst (prolonged standing). Pt works from home. - Pain R ankle Pain Intensity (Out of 10): 4 Pain Intensity Range: 8 - Objective Neuro: B LE sensation is WNL to light touch. R patellar reflex= 1/3, L= 2/3. Girth at ankles: R= 45 cm, L = 44 cm. ROM: L ankle DF= 2, PF= 65. R ankle DF= - 4, PF= 65 degrees. MMT: R ankle grossly 4-/5 and painful. L ankle 5/5. Gait: Pt is able to ambulate approximately 640 feet until needing to rest secondary to pain. - Goals Goal 1:: Decrease R ankle pain x 50% to aid with sleep Goal Time Frame: 4-6 Weeks Goal 2:: Increase R ankle strength x 1 grade to aid with stair negotiation Goal 3:: Increase R ankle DF ROM x 10 degrees to aid with restoring a more normal gait pattern Goal Time Frame: 4-6 Weeks Goal 4:: I with HEP Goal Time Frame: 4-6 Weeks - Rehabilitation Potential Physical Therapy Diagnosis: R ankle pain, weakness, and limited ROM secondary to residual effects of Chronic R ankle Fx Rehabilitation Potential: Good - Anticipated Interventions Patient/Client Instruction: Educate patient on: Condition, Plan of Care For the Purpose of:: To improve self management Therapeutic Exercise to Include: Strength training, Endurance training, Balance training, Flexibilty training, Active ROM For the Purpose of:: To decrease pain, To increase ROM, To improve muscle performance and motor function Cryotherapy (ice pack, ice massage): Yes For the Purpose of:: To decrease pain Thank you for the opportunity to evaluate your patient. For Medicare and Medicare HMO plans, please review the plan of care and approve it. It will need to be FAXED BACK to us at [phone] for Medicare purposes. For Medicare only, by signing this I certify the plan of care. Please let me know if there are questions or concerns regarding this plan of care. Physician Signature: Date:
--- NOTE | 2020-05-02 09:56 | HP.PT.NRP ---
FLORIDA BALTAZAR was seen in my office for initial evaluation on 02/01/20. The following Plan of Care was established for this patient: Initial Frequency: 2-3x /Week Initial Duration: 4-6 Weeks Patient/Client Instruction: Educate patient on: Condition, Plan of Care For the Purpose of:: To improve self management Therapeutic Exercise to Include: Strength training, Endurance training, Balance training, Flexibilty training, Active ROM For the Purpose of:: To decrease pain, To increase ROM, To improve muscle performance and motor function Cryotherapy (ice pack, ice massage): Yes For the Purpose of:: To decrease pain This patient was last seen in our office . Pertinent comments regarding their Physical therapy will appear below: Pt was treated for 6 PT visits for R ankle pain through the date of 02/27/21. Pt has not returned through todays date and is discontinued at this time. At this point I will be discontinuing this patient from physical therapy. I would be happy to see this patient again in the future if found appropriate by the physician. Thank you! Isiah Moore, PT, ATC
== END 2020-02-28 19:00 | disposition home or self-care (01) ==
LOC: PT 14:30
PROVIDERS: PCP Family Medicine
DX: M25.571 Pain in right ankle and joints of right foot (principal)
CPT/HCPCS: 97014; 97110; 97140; 97161; G0283

== ENCOUNTER 2020-03-23 14:53 | Emergency (ER) | payer MEDICAID, SELFPAY ==
[2020-03-23 14:54] VITALS: BP 148/92; PULSE 90; RESP 18; TEMP 36.3; O2SAT 99; BMI 39.1
[2020-03-23 14:56] VITALS: BP 148/92; PULSE 92; RESP 18; TEMP 36.3; O2SAT 99
--- NOTE | 2020-03-23 15:06 | ED.VISSUMM ---
- ER Visit Summary Date of Service: 03/23/20 Chief Complaint: Covid, headache History of Present Illness: The patient is a 34 F who presents with a headache. She states she was diagnosed with Covid today. She had a headache for 2 days. It stabbing on the left side of her head. Does not radiate. She has no congestion sore throat and cough. She tried Tylenol without relief. She has had no fevers. Physical Examination: Vital signs reviewed. HEENT exam unremarkable. She has no meningismus. Heart is regular rate and rhythm without murmurs. Lungs are clear to auscultation. Abdomen is soft and nontender. Extremities reveal no edema. Skin exam normal. Neurologic exam normal. Test Results: None performed Emergency Department Course and Treatment: Patient will be given a dose of intramuscular Toradol here. She is 99% on room air with a heart rate of 90. I do not feel she needs any laboratory studies. Her neurologic exam is normal. She has no meningismus. I do not feel she requires any imaging at this time. Patient will continue with Tylenol for her headache at home. She will follow-up with her PCP. Treatment Plan: [] Disposition: Discharge Impression: COVID-19, headache This note was generated with [employer] dictation software. It may contain incorrect words, spelling, and punctuation that were not noted in review of the chart prior to signing ED Disposition - Plan for ED Patient: Disposition: Home or Assisted Living Instructions: ED Headache, Tension Referrals: Butch Dutta MD [Primary Care Provider] -
[2020-03-23] MEDS: Ketorolac 60 MG/2 ML Vial IM (15:20)
== END 2020-03-23 15:39 | disposition home or self-care (01) ==
LOC: ED 15:14
PROVIDERS: Emergency Provider Emergency Medicine; PCP Family Medicine
DX: U07.1 COVID-19 (principal); J45.909 Unspecified asthma, uncomplicated; Z72.0 Tobacco use
CPT/HCPCS: 96372; 99282

== ENCOUNTER 2020-08-07 16:35 | Emergency (ER) | payer MEDICAID, SELFPAY ==
[2020-08-07 16:36] VITALS: BP 140/90; PULSE 105; RESP 17; TEMP 36.8; O2SAT 98; BMI 40.4
--- NOTE | 2020-08-07 16:51 | ED.RN ---
no old ekg
--- NOTE | 2020-08-07 17:10 | EKG12_ITS ---
Test Reason : CP Blood Pressure : / mmHG Vent. Rate : 094 BPM Atrial Rate : 094 BPM P-R Int : 126 ms QRS Dur : 090 ms QT Int : 342 ms P-R-T Axes : 037 031 011 degrees QTc Int : 427 ms Normal sinus rhythm Normal ECG Confirmed by TK BROWN, NIMCO ([id number]), purchasing expeditor ZOFIA HERNANDEZ ([id number]) on 08/10/2020 9:02:57 AM Referred By: TONY/EHSAN Confirmed By:NIMCO FREY MD
[2020-08-07 17:15] VITALS: O2SAT 98
--- NOTE | 2020-08-07 17:19 | RAD_ITS ---
INDICATION: chest pain EXAMINATION/TECHNIQUE: X-RAY - XR Chest 1 View COMPARISON: 01/07/2019. FINDINGS: The lungs are clear. The cardiomediastinal silhouette is unremarkable. No pleural effusion or pneumothorax. No acute osseous abnormalities. RAD/Chest 1 View (Portable) IMPRESSION: No acute radiographic abnormalities. Electronically Signed: Dayton Whalen MD at 17:52 EDT Tel , Service support ,
--- NOTE | 2020-08-07 17:21 | ED.DCSUM_ITS ---
History of Present Illness Chief Complaint: Chest Pain Informant: Patient Onset: Today Narrative: Patient is a 34-year-old female with history of bipolar disorder, hypertension hyperlipidemia presenting from home for chest pain. Patient states she had episode chest pain this morning around 11 AM. She notes her legs felt cold. EMS was called but her vital signs were normal and she started feel better so she did not come in. She went out shopping and then had recurrence of her symptoms. She states this is about an hour prior to arrival. She had sharp pain to the right of her sternum. She denies any radiation of the pain. She denies associated shortness of breath or cough. She states the pain is worse when she leans forward and at that time she feels like she is going to pass out. No change when she lays backwards. She did not take any aspirin prior to arrival. Patient states she was having some similar symptoms about a month ago in her primary care doctor did an EKG which was inconclusive and she was referred to cardiology. She has appointment to see them next month. Patient denies any GI or symptoms. She no she did have some nausea earlier on today but that has since resolved. She denies any history of blood clots. She denies any swelling of her legs. She is not on any hormonal therapy. No other complaints at this time. Past Medical History - Allergies and Home Meds Allergies/Adverse Reactions: Allergies poison victor hugo extract Allergy (Severe, Verified 02/24/20 09:25) SEVERE Swelling coconut Allergy (Verified 02/24/20 09:25) Hives meperidine HCl [From Demerol] Allergy (Verified 02/24/20 09:25) Hives venom-honey bee [bee venom (honey bee)] Allergy (Verified 02/24/20 09:25) Hives Primary Care Physician: Butch Dutta MD [Primary Care Provider] - Past Medical History: - - Bipolar disorder, hypertension, hyperlipidemia Surgical History: cholecystectomy, hysterectomy, - - sections ?2 Smoking Status: Current every day smoker Review of Systems General: Denies: Chills, Fever, Sweats Eyes: Denies: Visual changes - bilaterally, Diplopia ENT: Denies: Rhinorrhea, Sore throat Cardiovascular: Reports: Chest pain. Denies: Palpitations, Heart racing Respiratory: Denies: Dyspnea, Cough, Dyspnea on exertion Gastrointestinal: Reports: Nausea. Denies: Abdominal pain, Vomiting, Diarrhea, Melena, Hematochezia Genitourinary: Denies: Dysuria, Hematuria, Frequency Musculoskeletal: Denies: Back pain, Extremity Pain Skin: Denies: Rash, Wounds Neurological: Denies: Headache, Weakness, Numbness Physical Exam Vital Signs/Narrative: Vital Signs Temp Pulse Resp BP Pulse Ox 08/07/20 17:15 98 08/07/20 16:36 98.3 F 105 H 17 140/90 H 98 Inital Vital Signs reviewed: Yes General: Well nourished, Well developed, No Acute Distress Head: Normocephalic, Atraumatic Eyes: Perrl, EOMI ENT: Moist mucous membranes, No rhinorrhea Neck: Supple, Nontender, No JVD Cardiovascular: Regular rate, Regular rhythm, No murmurs Respiratory: No distress, CTA bilaterally, Chest nontender Abdomen: Soft, Nontender, Nondistended, Normal bowel sounds Back: Nontender, Normal Inspection Extremities: Nontender, No edema Skin: Normal color, No rash Neurological: Alert, Oriented x3, Cranial nerves II-XII grossly intact, Normal Strength, Normal Sensation Psychological: Normal affect, Normal Mood Diagnostic/Tx/Re-eval Chest X-Ray - ED: 1 View, Read by ED Physician, Read by Radiologist, No Acute Disease Clinical Impression(s) from Imaging Studies Chest X-Ray 08/07/20 17:19 IMPRESSION: No acute radiographic abnormalities. Electronically Signed: Dayton Whalen MD at 17:52 EDT Tel , Service support , Laboratory Data 08/07/20 08/07/20 08/07/20 17:00 17:00 17:00 WBC 10.7 RBC 4.29 Hgb 13.2 Hct 39.1 MCV 91.1 MCH 30.8 MCHC 33.8 RDW Std Deviation 38.8 RDW Coeff of [place] 11.6 Plt Count 300 MPV 9.1 Immature Gran % (Auto) 0.300 Neut % (Auto) 60.4 Lymph % (Auto) 29.7 Lander % (Auto) 6.5 Eos % (Auto) 2.3 Baso % (Auto) 0.8 Absolute Neuts (auto) 6.4 Absolute Lymphs (auto) 3.16 Nucleated RBC % 0 D-Dimer Quant (PE/DVT) <= 0.27 Sodium 138 Potassium 3.4 L Chloride 106 Carbon Dioxide 25.0 Anion Gap 7 BUN 13 Creatinine 0.65 Estim Creat Clear Calc 115.24 Est GFR (MDRD) Af Amer 134 Est GFR (MDRD) Non-Af 110 BUN/Creatinine Ratio 19.9 Glucose 122 H Calcium 8.8 Troponin I < 0.015 - Rhythm Strip Rhythm Strip: Sinus Rhythm Rate: 94 Ectopy: None - EKG Initial EKG Interpretation: Sinus Rhythm, - - Normal sinus rhythm rate of 94 Normal axis Normal intervals Normal ST segments Treatment: Aspirin - Medical Decision Making Patient evaluated protuberances of chest pain that occurred today. Patient was nontoxic in no acute distress. She does not have any acute ischemic changes on her EKG. Patient is low risk per heart score. Initial troponin is negative. She is low risk per Wells criteria so D-dimer was obtained. This is negative. I do not suspect a PE as a cause of her pain. No signs of acute infection. Patient is offered delta troponin but declined stating she has a follow-up appointment with her nurse practitioner in the office tomorrow. Patient will be discharged home. The exact cause of her chest pain is not clear. I do think she stable for outpatient follow-up. She also has follow-up arranged with cardiology. Patient does have mild improvement of her symptoms with aspirin. Patient is counseled on signs and symptoms requiring return to the emergency room. Patient verbalizes agreement and understand this plan. Patient discharged home in stable and improved condition. ED Disposition - Plan for ED Patient: Disposition: Home or Assisted Living Diagnosis: Chest pain of unknown etiology Instructions: ED Chest Pain, Uncertain Cause Referrals: Butch Dutta MD [Primary Care Provider] - Additional Instructions: Please follow-up tomorrow as scheduled. Follow-up with cardiology. Return the emergency room with worsening symptoms.
[2020-08-07 17:22] VITALS: BP 120/67; PULSE 87; RESP 22; O2SAT 98
[2020-08-07] MEDS: Aspirin 81 MG TAB.CHEW 324 MG PO (17:22)
[2020-08-07] MEDS: 0.9% Normal Saline 1,000 ML 1000 ML IV (17:22)
[2020-08-07 17:35] LABS: Absolute Lymphocyte Count 3.16 X10^3/uL (0.83-4.51); Absolute Neutrophil Count 6.4 X10^3/uL (2.0-7.7); Basophil# 0.09 X10^3/uL; Basophil% 0.8 % (0-1); Eosinophil# 0.25 X10^3/uL; Eosinophils% 2.3 % (0-5); Hematocrit 39.1 % (37-47); Hemoglobin 13.2 g/dL (12.0-15.0); Lymphocyte # 3.16 X10^3/ul (0.83-4.51); Lymphocyte % 29.7 % (19-41); Mean Corp Hgb Conc 33.8 g/dL (32-36); Mean Corpuscular Hgb 30.8 pg (27.0-32.0); Mean Corpuscular Volume 91.1 fL (81-99); Mean Platelet Vol. 9.1 fl (6.2-12.0); Monocyte# 0.69 X10^3/uL; Monocyte% 6.5 % (0-10); NRBC Flagged by Analyzer 0 % (0-5); Neutrophil # 6.43 X10^3/uL (2.7-7.7); Neutrophil % 60.4 % (47-70); Platelet Count 300 K/mm3 (150-450); RBC Distribution Width CV 11.6 % (11.6-14.6); RBC Distribution Width SD 38.8 fl (35.1-43.9); Red Blood Count 4.29 M/mm3 (4.2-5.4); White Blood Count 10.7 K/mm3 (4.4-11.0)
[2020-08-07 17:51] LABS: Anion Gap 7 (5-15); BUN 13 mg/dL (7-18); BUN/Creat Ratio 19.9 RATIO (10-20); Calcium,Total 8.8 mg/dL (8.5-10.1); Chloride 106 mmol/L (98-107); Creatinine, Serum 0.65 mg/dL (0.55-1.02); EST Glomerular Filtration Rate 110 mL/min (>60); Est Glom Filt Rate - Afr Amer 134 mL/min (>60); Estimated Creatinine Clearance 115.24 ml/min; Glucose 122 mg/dL (74-106); Potassium 3.4 mmol/L (3.5-5.1); Sodium Level 138 mmol/L (136-145)
[2020-08-07 18:15] LABS: D-Dimer Quantitative (DVT/PE) <= 0.27 FEU/ug/m (0.27-0.49)
[2020-08-07 18:54] VITALS: BP 122/85; PULSE 85; RESP 16; O2SAT 99
== END 2020-08-07 18:55 | disposition home or self-care (01) ==
PROVIDERS: Emergency Provider Emergency Medicine; PCP Family Medicine
DX: R07.9 Chest pain, unspecified (principal); I10 Essential (primary) hypertension; E78.5 Hyperlipidemia, unspecified; F31.9 Bipolar disorder, unspecified; F17.200 Nicotine dependence, unspecified, uncomplicated; Z79.899 Other long term (current) drug therapy
CPT/HCPCS: 71045; 80048; 84484; 85025; 85379; 93005; 96360; 99285; J7030; A4216

== ENCOUNTER 2020-11-09 14:23 | Emergency (ER) | payer MEDICAID, SELFPAY ==
[2020-11-09 14:24] VITALS: BP 124/79; PULSE 91; RESP 18; TEMP 37.4; O2SAT 98; BMI 43.2
[2020-11-09] MEDS: Mag Hydrox/Al Hydrox/Simeth 30 ML UDC PO (17:13)
[2020-11-09] MEDS: 0.9% Normal Saline 1,000 ML 1000 ML IV (17:13)
[2020-11-09] MEDS: Famotidine 200 MG/20 ML MDV 20 MG in 0.9% Normal Saline (Pres. free 8 ML 300 MG IV (17:14)
[2020-11-09 17:22] LABS: Absolute Neutrophil Count 4.8 X10^3/uL (2.0-7.7); Basophil# 0.05 X10^3/uL; Basophil% 0.6 % (0-1); Eosinophil# 0.13 X10^3/uL; Eosinophils% 1.6 % (0-5); Hemoglobin 13.2 g/dL (12.0-15.0); Lymphocyte % 33.1 % (19-41); Mean Corp Hgb Conc 33.8 g/dL (32-36); Mean Corpuscular Hgb 30.7 pg (27.0-32.0); Mean Corpuscular Volume 90.7 fL (81-99); Mean Platelet Vol. 8.4 fl (6.2-12.0); Monocyte# 0.48 X10^3/uL; Monocyte% 5.9 % (0-10); NRBC Flagged by Analyzer 0 % (0-5); Neutrophil # 4.77 X10^3/uL (2.7-7.7); Neutrophil % 58.4 % (47-70); Platelet Count 298 K/mm3 (150-450); RBC Distribution Width CV 11.5 % (11.6-14.6); RBC Distribution Width SD 38.2 fl (35.1-43.9); White Blood Count 8.2 K/mm3 (4.4-11.0)
[2020-11-09 17:42] LABS: ALB/GLOB Ratio 1.1 RATIO (0.9-2.4); AST(SGOT) 9 U/L (15-37); Alanine Aminotransfer ALT/SGPT 13 U/L (13-56); Albumin, Serum 3.7 g/dL (3.2-5.0); Alkaline Phosphatase 105 U/L (45-117); Anion Gap 4 (5-15); BUN 12 mg/dL (7-18); BUN/Creat Ratio 23.8 RATIO (10-20); Calcium,Total 8.7 mg/dL (8.5-10.1); Chloride 103 mmol/L (98-107); EST Glomerular Filtration Rate 148 mL/min (>60); Est Glom Filt Rate - Afr Amer 180 mL/min (>60); Estimated Creatinine Clearance 149.81 ml/min; Globulin 3.5 g/dL (2.2-4.2); Glucose 86 mg/dL (74-106); Lipase 75 U/L (73-393); Potassium 3.7 mmol/L (3.5-5.1); Protein, Total 7.2 g/dL (6.4-8.2); Sodium Level 136 mmol/L (136-145); Troponin-I HS < 3.0 pg/mL (3.0-53.7)
--- NOTE | 2020-11-09 17:51 | EDS_ITS ---
HPI History of Present Illness Chief Complaint: Sore Throat Informant: patient Narrative Narrative: Patient is a 34-year-old female with history of kidney stones, bipolar disorder, migraines, anxiety and depression presenting with throat pain. Patient states she has been experiencing pain with swallowing and a foreign body sensation in her throat. States is been bad over the last week. She notes she has pain now that radiates down the center of her chest and underneath her left breast. She saw her primary care provider who thought she had esophagitis. She is started on Carafate and referred to Dr. Shaver, general surgery. She has an appointment see Dr. Shaver next week. Patient states he has been eating and drinking less because of the pain. She has never had any like this before. She denies any change in her bowel habits. She is not sure she is any change in her urination. She denies any shortness of breath or difficulty breathing. No other abdominal pain. Does not drink alcohol. Is not on any antacids. Has tried Pepto-Bismol with no relief. No other complaints at this time. [facility] Medical History Asthma Hyperlipidemia Hypertension Home Medications albuterol sulfate 1 - 2 puff INHALATION Q4H PRN PRN 02/24/20 [History Last Taken Unknown] atorvastatin 20 mg PO QHS 08/07/20 [History Last Taken Unknown] carbamazepine 400 mg PO QHS 08/07/20 [History Last Taken Unknown] lisinopril 10 mg PO DAILY 08/07/20 [History Last Taken Unknown] rizatriptan 10 mg PO DAILY PRN PRN 08/07/20 [History Last Taken Unknown] topiramate 50 mg PO DAILY 08/07/20 [History Last Taken Unknown] cholecalciferol (vitamin D3) [Vitamin D3] 125 mcg PO DAILY 11/09/20 [History Last Taken Unknown] gabapentin 800 mg PO BID 11/09/20 [History Last Taken Unknown] hydroxyzine pamoate 25 mg PO BID PRN 11/09/20 [History Last Taken Unknown] lidocaine HCl 15 ml PO TID PRN #100 ml 11/09/20 [Rx Last Taken Unknown] pantoprazole [Protonix] 40 mg PO DAILY #20 tab 11/09/20 [Rx Last Taken Unknown] varenicline [Chantix Starting Month Box] 1 tab PO DAILY 11/09/20 [History Last Taken Unknown] Allergy/AdvReac Type Severity Reaction Status Date / Time poison victor hugo extract Allergy Severe SEVERE Verified 11/09/20 14:24 Swelling coconut Allergy Hives Verified 11/09/20 14:24 meperidine HCl [From Demerol] Allergy Hives Verified 11/09/20 14:24 venom-honey bee Allergy Hives Verified 11/09/20 14:24 [bee venom (honey bee)] Surgical History H/O: hysterectomy History of right ankle joint replacement Hx of appendectomy Hx of cholecystectomy Social History Smoking Status: Current every day smoker tobacco type: cigarettes ROS ROS ED Constitutional Constitutional ED: Denies chills or fever(s) Eyes Eyes: Denies change in vision ENT ENT ED: Reports sore throat; Denies ear pain or rhinorrhea Cardiovascular Cardiovascular: Reports chest pain; Denies palpitations Respiratory/Chest Respiratory/Chest: Denies cough or dyspnea Gastrointestinal Gastrointestinal: Reports abdominal pain; Denies constipation, diarrhea, nausea or vomiting Genitourinary Genitourinary ED: Denies dysuria or hematuria Musculoskeletal Musculoskeletal: Denies arthralgias or myalgias Integumentary Denies rash Neurologic Neurologic: Denies headache(s) or weakness EXAM Physical Exam Const Vital Signs: 11/09/20 14:24 11/09/20 19:32 Temperature 99.4 F H Temperature Source Temporal Pulse Rate 91 79 Respiratory Rate 18 Blood Pressure 124/79 H 118/66 Blood Pressure Mean 94 Pulse Ox 98 Oxygen Delivery Method Room Air Positive well nourished, well developed and obese General Appearance ED: well developed Nutritional Appearance: obese HEENT Reports moist mucous membranes HEENT Narrative: No oral pharyngeal erythema. No plaques in the mouth noted. Normal tongue. Uvula is midline. Eyes PERRL Neck no lymphadenopathy, supple and no JVD Chest Wall inspection of chest normal Resp normal respiratory effort and clear to auscultation bilaterally Cardio regular rate, regular rhythm and no murmurs GI normal to inspection, nondistended, normoactive bowel sounds Palpation: tender epigastric and LUQ Extremity normal to inspection Neuro oriented x3 and CN's II-XII intact bilaterally Sensorium / Orientation: alert Psych mental status grossly normal Skin no rashes or lesions noted MDM MDM MDM Narrative Medical decision making narrative: Patient evaluated for worsening sore throat. Patient's been having worsening throat pain and odynophagia for the past 5 days. She was seen by her primary care provider who prescribed her Carafate, referred her to surgery and felt that likely she had esophagitis. On my physical examination and based on her H&P I also agree that this is likely esophagitis. Patient appears nontoxic and does not appear dehydrated. She has normal CBC and CMP. She is complaining of pain in her chest I think it is esophageal and I do not think this is referred cardiac pain. Her high sensitive troponin is normal. Patient is low risk for PE and I do not think a D-dimer CT is indicated at this time. Patient is given a GI cocktail does have improvement of her symptoms. She is also given a dose of IV Pepcid in the ER. Patient is encouraged to keep her follow-up appointment with surgery as likely she will need endoscopy for further evaluation of this. At this time she is not dehydrated and does not require admission for her odynophagia. Patient agreeable to this plan of care. She is discharged home in stable condition. She is started on viscous lidocaine for symptom control. Lab Data Labs: Laboratory Results - last 24 hr 11/09/20 11/09/20 11/09/20 17:15 17:15 17:45 WBC 8.2 RBC 4.30 Hgb 13.2 Hct 39.0 MCV 90.7 MCH 30.7 MCHC 33.8 RDW Std Deviation 38.2 RDW Coeff of [place] 11.5 L Plt Count 298 MPV 8.4 Immature Gran % (Auto) 0.400 Neut % (Auto) 58.4 Lymph % (Auto) 33.1 [place] % (Auto) 5.9 Eos % (Auto) 1.6 Baso % (Auto) 0.6 Absolute Neuts (auto) 4.8 Absolute Lymphs (auto) 2.70 Nucleated RBC % 0 Sodium 136 Potassium 3.7 Chloride 103 Carbon Dioxide 29.0 Anion Gap 4 L BUN 12 Creatinine 0.50 L Estim Creat Clear Calc 149.81 Est GFR (MDRD) Af Amer 180 Est GFR (MDRD) Non-Af 148 BUN/Creatinine Ratio 23.8 H Glucose 86 Calcium 8.7 Total Bilirubin 0.20 AST 9 L ALT 13 Alkaline Phosphatase 105 Troponin I High Sens < 3.0 L Total Protein 7.2 Albumin 3.7 Globulin 3.5 Albumin/Globulin Ratio 1.1 Lipase 75 Urine Color Yellow Urine Clarity Sl. Cloudy Urine pH 5.0 Ur Specific [place] 1.025 Urine Protein Negative Urine Glucose (UA) Normal Urine Ketones Negative Urine Occult Blood Negative Urine Nitrite Negative Urine Bilirubin Negative Urine Urobilinogen Normal Ur Leukocyte Esterase Negative Urine RBC 0 SEEN Urine WBC 0-5 SEEN Ur Squamous Epith Cells 0-5 SEEN Urine Bacteria 2+ Urine Mucus 0 SEEN Urine Test Negative Discharge Plan Triage Chief Complaint: Sore Throat ED Provider: Elena Li Dx/Rx/DC Orders Clinical Impression: Esophagitis, Epigastric abdominal tenderness Instructions: Esophagitis, ED Epigastric Pain Uncertain Cause Prescriptions: New lidocaine HCl 2 % solution 15 ml PO TID PRN (Reason: pain) Qty: 100 RF: 0 pantoprazole [Protonix] 40 mg tablet,delayed release (DR/EC) 40 mg PO DAILY Qty: 20 RF: 0 No Action albuterol sulfate 1 PUFF inhaler 1 - 2 puff INHALATION Q4H PRN PRN (Reason: Sob &/Or Wheezing) RF: 0 atorvastatin 20 MG tablet 20 mg PO QHS RF: 0 rizatriptan 10 MG tablet 10 mg PO DAILY PRN PRN (Reason: Headache) RF: 0 carbamazepine 200 MG tablet 400 mg PO QHS RF: 0 lisinopril 10 MG tablet 10 mg PO DAILY RF: 0 topiramate 50 MG cap,sprinkle,ER 24hr dose pack 50 mg PO DAILY RF: 0 gabapentin 800 mg tablet 800 mg PO BID RF: 0 hydroxyzine pamoate 25 mg capsule 25 mg PO BID PRN (Reason: Anxiety) RF: 0 Chantix Starting Month Box 0.5 mg (11)- 1 mg (42) tablets,dose pack 1 tab PO DAILY RF: 0 cholecalciferol (vitamin D3) [Vitamin D3] 125 mcg (5,000 unit) Tablet 125 mcg PO DAILY RF: 0 Primary Care Provider: Butch Dutta Referrals: Butch Dutta MD [Primary Care Provider] - Activity Restrictions/Additional Instructions: Avoid acidic foods. Avoid ibuprofen. Follow-up with Dr. Shaver as scheduled next week. Disposition Disposition: Home, Self Care Discharge Date/Time: 11/09/20 19:32
[2020-11-09 18:02] LABS: Mucous, Urine 0 SEEN /hpf (<or=2+); Red Blood Cells-Urine 0 SEEN /hpf (0-5)
[2020-11-09 18:05] LABS: Color, Urine Yellow (Yellow); Glucose, Dipstick Normal (Normal); Ketone-Dipstick Negative (Negative); Leukocyte Esterase-Dipstick Negative /ul (Negative); Nitrite-Dipstick Negative (Negative); Occult Blood-Urine Negative /ul (Negative); Protein-Dipstick Negative (Negative); Specific Gravity, Urine 1.025 (1.002-1.030); Urine Bilirubin Dipstick Negative (Negative); Urine Clarity Sl. Cloudy (Clear); Urine Urobilinogen Normal (Normal)
[2020-11-09 18:06] LABS: Internal QC Validated? YES +Cl - CLEAR BKGD; Pregnancy, Urine Negative Negative
[2020-11-09 18:16] LABS: Squamous Epithelial Cells - UA 0-5 SEEN /hpf (5-10)
[2020-11-09 18:18] LABS: Bacteria 2+ /hpf (None Seen); White Blood Cells 0-5 SEEN /hpf (0-5)
[2020-11-09 19:32] VITALS: BP 118/66; PULSE 79
== END 2020-11-09 19:32 | disposition home or self-care (01) ==
PROVIDERS: Emergency Provider Emergency Medicine; PCP Family Medicine
DX: K20.90 Esophagitis, unspecified without bleeding (principal); R10.13 Epigastric pain; I10 Essential (primary) hypertension; E78.5 Hyperlipidemia, unspecified; E66.9 Obesity, unspecified; F17.210 Nicotine dependence, cigarettes, uncomplicated; Z68.41 Body mass index [BMI] 40.0-44.9, adult; Z79.899 Other long term (current) drug therapy
CPT/HCPCS: 80053; 81001; 81025; 83690; 84484; 85025; 96365; 96366; 99284; J7030; J3490

== ENCOUNTER 2020-11-15 14:03 | Observation (INO) | payer MEDICAID, SELFPAY ==
[2020-11-15] VITALS (12 sets, daily range): BP systolic 108–156; BP diastolic 62–103; PULSE 80–102; RESP 14–21; TEMP 36.2–37.1; O2SAT 96–100; BMI 44.8; BMI 44.2
--- NOTE | 2020-11-15 14:13 | EKG12_ITS ---
Test Reason : STROKE Blood Pressure : / mmHG Vent. Rate : 095 BPM Atrial Rate : 095 BPM P-R Int : 134 ms QRS Dur : 090 ms QT Int : 328 ms P-R-T Axes : 043 040 025 degrees QTc Int : 412 ms Normal sinus rhythm Normal ECG Confirmed by TK BROWN, NIMCO ([id number]), digital editor ZOFIA HERNANDEZ ([id number]) on 11/20/2020 9:35:21 AM Referred By: MR Confirmed By:NIMCO FREY MD
--- NOTE | 2020-11-15 14:13 | CT_ITS ---
We are attempting to reach an attending provider to discuss findings. An addendum with communication details will be sent when the communication is complete. STUDY: CT HEAD STROKE PROTOCOL W/O CONTRAST INJECTION REASON FOR EXAM: Female, 34 years old. Neuro deficit, acute, stroke suspected RADIATION DOSAGE (If Supplied By Facility): CTDIvol = ( ) mGy, DLP = ( ) mGycm TECHNIQUE: Transaxial CT imaging of the brain was performed without administration of intravenous contrast material. Individualized dose optimization techniques were used for this CT. COMPARISON: No relevant priors. FINDINGS: Normal soft tissue structures. Normal calvarium. Normal size ventricles and extra-axial spaces for the patient''s age. Normal white matter tracts of the cerebral hemispheres. Normal basal ganglia and thalami. Normal brainstem. Normal cerebellum. There is no intracranial hemorrhage. There are no findings of an acute ischemic infarction. Normal visualized paranasal sinuses. ASPECT score: CT/STROKE Brain/Head without Cont IMPRESSION: Normal unenhanced CT scan of the brain. Electronically Signed: Lonnie Smith MD at 14:27 EDT Tel , Service support ,
--- NOTE | 2020-11-15 14:15 | EDS_ITS ---
HPI History of Present Illness Chief Complaint: Hypertension Narrative Narrative: Patient is presenting through triage due to concerns for numbness and a headache. Patient has an underlying history of hypertension hyperlipidemia, is medicated for both of these. Patient states that about an hour prior to arrival she had an onset of a headache. This a generalized headache, was not a thunderclap type headache but was associated with a feeling of fuzzy vision, and then some numbness to the left face left arm and left leg. Patient denies weakness. She denies any speech difficulty. She denies any current vision issues. No prior history of stroke. No recent head injuries. No exacerbating relieving factors. Patient was concerned because she took her blood pressure at home it was 180s over 1 teens, she presented to the emergency department. [facility] Medical History (Updated 11/15/20 @ 15:[address] Eduardo Otero MD) Anxiety Asthma Bipolar disorder Depression Hyperlipidemia Hypertension Kidney stones Smoker Substance abuse Home Medications albuterol sulfate 1 - 2 puff INHALATION Q4H PRN PRN 02/24/20 [History Last Taken Unknown] atorvastatin 20 mg PO QHS 08/07/20 [History Last Taken Unknown] carbamazepine 400 mg PO QHS 08/07/20 [History Last Taken Unknown] lisinopril 10 mg PO DAILY 08/07/20 [History Last Taken Unknown] topiramate 50 mg PO DAILY 08/07/20 [History Last Taken Unknown] cholecalciferol (vitamin D3) [Vitamin D3] 125 mcg PO DAILY 11/09/20 [History Last Taken Unknown] gabapentin 1,600 mg PO BID 11/09/20 [History Last Taken Unknown] hydroxyzine pamoate 25 mg PO BID PRN 11/09/20 [History Last Taken Unknown] pantoprazole [Protonix] 40 mg PO DAILY #20 tab 11/09/20 [Rx Last Taken Unknown] varenicline [Chantix Starting Month Box] 1 tab PO DAILY 11/09/20 [History Last Taken Unknown] Allergy/AdvReac Type Severity Reaction Status Date / Time poison victor hugo extract Allergy Severe SEVERE Verified 11/15/20 14:06 Swelling coconut Allergy Hives Verified 11/15/20 14:06 meperidine HCl [From Demerol] Allergy Hives Verified 11/15/20 14:06 venom-honey bee Allergy Hives Verified 11/15/20 14:06 [bee venom (honey bee)] Surgical History H/O: hysterectomy History of right ankle joint replacement Hx of appendectomy Hx of cholecystectomy Social History Smoking Status: Current every day smoker tobacco type: cigarettes ROS ROS ED Constitutional Constitutional ED: Denies chills or fever(s) ENT ENT ED: Denies rhinorrhea Cardiovascular Cardiovascular: Denies chest pain Respiratory/Chest Respiratory/Chest: Denies cough or dyspnea Gastrointestinal Gastrointestinal: Denies abdominal pain, diarrhea, nausea or vomiting Genitourinary Genitourinary ED: Denies dysuria or hematuria Musculoskeletal Musculoskeletal: Denies back pain Integumentary Denies rash Neurologic Neurologic: Reports as per HPI and paresthesias; Denies weakness Psychiatric Psychiatric: Denies depression Endocrine Endocrinology: Denies fatigue Allergic/Immunologic Allergic/Immunologic ED: Denies urticaria EXAM Physical Exam Const Vital Signs: 11/15/20 14:04 11/15/20 14:12 11/15/20 14:29 Temperature 97.4 F L Temperature Source Temporal Pulse Rate 99 102 H 96 Respiratory Rate 18 21 H 14 Blood Pressure 153/98 H 156/100 H 156/100 H Blood Pressure Mean 116 118 118 Pulse Ox 100 100 98 Oxygen Delivery Method Room Air Room Air Room Air 11/15/20 14:30 11/15/20 15:00 Temperature Temperature Source Pulse Rate 94 95 Respiratory Rate 21 H 20 H Blood Pressure 134/103 H 148/99 H Blood Pressure Mean 113 115 Pulse Ox 98 96 Oxygen Delivery Method Room Air Room Air Positive well nourished and well developed General Appearance ED: well developed and NAD HEENT Reports moist mucous membranes Negative for trauma or tenderness Eyes EOMs intact bilaterally Neck no lymphadenopathy, supple and no JVD Chest Wall inspection of chest normal Resp normal respiratory effort and clear to auscultation bilaterally Cardio regular rate, regular rhythm, no murmurs and peripheral pulses 2+ throughout GI normal to inspection, nondistended, normoactive bowel sounds, non-tender and no masses Palpation: soft Back/Spine normal to inspection Extremity normal to inspection General Extremety ED: Negative for tenderness Neuro oriented x3 Neuro Narrative: NIH stroke scale is a 1 secondary to dysesthesia of the left face left arm and left leg Sensorium / Orientation: alert Motor Exam: strength 5/5 throughout Psych mental status grossly normal Skin no rashes or lesions noted MDM MDM MDM Narrative Medical decision making narrative: Patient presented through triage secondary to an onset of a headache and left-sided numbness. Patient's NIH stroke scale was 1, her onset was within an hour presentation stroke team was activated by the triage nurse. I evaluated the patient immediately at the bedside, confirmed the NIH stroke scale is being 1, and the patient was taken directly to CT scan. Patient was evaluated by teleneurology, consultation at the bedside we are in agreement that the patient's head CT is negative her BP is improving, and that this does not require TPA at this time. It was the thought of teleneurology that this could potentially be a complex migraine. Patient's remainder of her work-up including blood work and troponin are unremarkable. Chest x-ray by my personal review is negative for acute pathology. Patient does have multiple risk factors including obesity hypertension hyperlipidemia for the possibility of stroke. She has persistent left-sided symptoms, she requires admission for further work-up. Lab Data Labs: Laboratory Results - last 24 hr 11/15/20 11/15/20 11/15/20 14:15 14:15 14:17 WBC 9.3 RBC 4.13 L Hgb 12.8 Hct 38.3 MCV 92.7 MCH 31.0 MCHC 33.4 RDW Std Deviation 38.9 RDW Coeff of [place] 11.5 L Plt Count 296 MPV 8.5 Immature Gran % (Auto) 0.600 Neut % (Auto) 60.2 Lymph % (Auto) 28.7 [place] % (Auto) 7.4 Eos % (Auto) 2.2 Baso % (Auto) 0.9 Absolute Neuts (auto) 5.6 Absolute Lymphs (auto) 2.67 Nucleated RBC % 0 PT INR APTT Sodium 138 Potassium 4.0 Chloride 104 Carbon Dioxide 28.0 Anion Gap 6 BUN 14 Creatinine 0.60 Estim Creat Clear Calc 124.85 Est GFR (MDRD) Af Amer 148 Est GFR (MDRD) Non-Af 122 BUN/Creatinine Ratio 23.4 H Glucose 99 Calcium 9.0 Troponin I High Sens < 3.0 L POC Glucose 107 11/15/20 14:23 WBC RBC Hgb Hct MCV MCH MCHC RDW Std Deviation RDW Coeff of [place] Plt Count MPV Immature Gran % (Auto) Neut % (Auto) Lymph % (Auto) [place] % (Auto) Eos % (Auto) Baso % (Auto) Absolute Neuts (auto) Absolute Lymphs (auto) Nucleated RBC % PT 12.2 INR 1.0 APTT 26.6 Sodium Potassium Chloride Carbon Dioxide Anion Gap BUN Creatinine Estim Creat Clear Calc Est GFR (MDRD) Af Amer Est GFR (MDRD) Non-Af BUN/Creatinine Ratio Glucose Calcium Troponin I High Sens POC Glucose Radiography Diagnostic Testing: Radiology Impression Brain CT 11/15/20 14:13 IMPRESSION: Normal unenhanced CT scan of the brain. Electronically Signed: Lonnie Smith MD at 14:27 EDT Tel , Service support , ADDENDUM: 11/15/20 1508 IMPRESSION: Normal unenhanced CT scan of the brain. N.B. : The above Results were Read Back by Lonnie Smith MD to Eduardo Otero MD, and understanding confirmed on 11/15/2020 14:57:48 (ET). Electronically Signed: Lonnie Smith MD at 14:27 EDT Tel , Service support , EKG Initial EKG: Attestation: I personally reviewed and interpreted this EKG as follows: (Sinus rhythm [address] segments normal T waves normal ME and QTc intervals no evidence of acute ischemia or arrhythmia) Discharge Plan Triage Chief Complaint: Hypertension ED Provider: Eduardo Otero Dx/Rx/DC Orders Clinical Impression: Paresthesia, HTN (hypertension), Hyperlipidemia Prescriptions: No Action albuterol sulfate 1 PUFF inhaler 1 - 2 puff INHALATION Q4H PRN PRN (Reason: Sob &/Or Wheezing) RF: 0 atorvastatin 20 MG tablet 20 mg PO QHS RF: 0 carbamazepine 200 MG tablet 400 mg PO QHS RF: 0 lisinopril 10 MG tablet 10 mg PO DAILY RF: 0 topiramate 50 MG cap,sprinkle,ER 24hr dose pack 50 mg PO DAILY RF: 0 gabapentin 800 mg tablet 1,600 mg PO BID RF: 0 hydroxyzine pamoate 25 mg capsule 25 mg PO BID PRN (Reason: Anxiety) RF: 0 Chantix Starting Month Box 0.5 mg (11)- 1 mg (42) tablets,dose pack 1 tab PO DAILY RF: 0 cholecalciferol (vitamin D3) [Vitamin D3] 125 mcg (5,000 unit) Tablet 125 mcg PO DAILY RF: 0 pantoprazole [Protonix] 40 mg tablet,delayed release (DR/EC) 40 mg PO DAILY Qty: 20 RF: 0 Primary Care Provider: Butch Dutta Referrals: Butch Dutta MD [Primary Care Provider] -
[2020-11-15 14:25] LABS: Absolute Lymphocyte Count 2.67 X10^3/uL (0.83-4.51); Absolute Neutrophil Count 5.6 X10^3/uL (2.0-7.7); Basophil# 0.08 X10^3/uL; Basophil% 0.9 % (0-1); Eosinophils% 2.2 % (0-5); Hematocrit 38.3 % (37-47); Hemoglobin 12.8 g/dL (12.0-15.0); Lymphocyte # 2.67 X10^3/ul (0.83-4.51); Lymphocyte % 28.7 % (19-41); Mean Corp Hgb Conc 33.4 g/dL (32-36); Mean Corpuscular Volume 92.7 fL (81-99); Mean Platelet Vol. 8.5 fl (6.2-12.0); Monocyte# 0.69 X10^3/uL; Monocyte% 7.4 % (0-10); NRBC Flagged by Analyzer 0 % (0-5); Neutrophil % 60.2 % (47-70); Platelet Count 296 K/mm3 (150-450); RBC Distribution Width CV 11.5 % (11.6-14.6); RBC Distribution Width SD 38.9 fl (35.1-43.9); Red Blood Count 4.13 M/mm3 (4.2-5.4); White Blood Count 9.3 K/mm3 (4.4-11.0)
[2020-11-15 14:26] LABS: Bedside Glucose 107 mg/dL (70-110)
--- NOTE | 2020-11-15 14:26 | CM.ED ---
SOCIAL WORK Stroke Alert Responded to Stroke Alert. Patient taken to CT, mother at bedside. Introduced role and reason for referral, Kaylen Ray present. Mother states brought patient to ER after patient called her stating high blood pressure and advised to come to ER by physician. 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 Support provided. Will remain available for needs. Carlos Salas, FISCAL TECHNICIAN, [employer] HELPER
[2020-11-15 14:40] LABS: Partial Thromboplast Time 26.6 Seconds (24.1-36.2); Prothrombin Time (Protime)PT. 12.2 SECONDS (11.7-14.9)
[2020-11-15 14:45] LABS: Anion Gap 6 (5-15); BUN 14 mg/dL (7-18); BUN/Creat Ratio 23.4 RATIO (10-20); Chloride 104 mmol/L (98-107); EST Glomerular Filtration Rate 122 mL/min (>60); Est Glom Filt Rate - Afr Amer 148 mL/min (>60); Estimated Creatinine Clearance 124.85 ml/min; Glucose 99 mg/dL (74-106); Sodium Level 138 mmol/L (136-145); Troponin-I HS < 3.0 pg/mL (3.0-53.7)
--- NOTE | 2020-11-15 14:50 | RAD_ITS ---
STUDY: X-RAY CHEST REASON FOR EXAM: Female, 34 years old. Neuro deficit, acute, stroke suspected TECHNIQUE: Single AP portable view of the chest. COMPARISON: 08/07/2020 FINDINGS: The lungs are clear and expanded. There is no demonstrated pleural abnormality. Normal size heart. Normal mediastinum and aashish. Normal visualized pulmonary arteries. Normal visualized aortic arch and descending thoracic aorta. Normal visualized thoracic spine. Normal visualized ribs, clavicles, and shoulders. There is no demonstrated abnormality of the visualized soft tissue structures of the upper abdomen. RAD/Chest 1 View IMPRESSION: Normal x-ray examination of the chest. Electronically Signed: Lonnie Smith MD at 15:20 EDT Tel , Service support ,
--- NOTE | 2020-11-15 15:12 | CHAPLAIN ---
Type of Pastoral Visit ___ Initial Visit ___ Follow-up Visit ___ On-call Visit ___ General Patient Visit ___ Spiritual Assessment ___ Family Conference ___ Bereavement _x__ Rapid Response ___ Code Blue ___ Other (describe below) Pastoral Care Referral From ___ Patient ___ Family ___ Nurse ___ Physician ___ Customer Service Rep ___ Basket Sorter _x__ Other (describe below) Sacrament/Intervention ___ Active listening ___ Anointing ___ Restorationist ___ Bereavement ___ Communion ___ Carol exploration ___ ___ Life review ___ Prayer ___ Reconciliation ___ Sacrament of Sick _x__ Supportive presence ___ Wedding ___ Other (describe below) Pastoral Comments came to ED for stroke alert; pt was taken to CT and mother of pt remained in room; mother explains that she does not need extra support; SW also available to support pt and family member
[2020-11-15] MEDS: Ketorolac 15 MG/ML Vial IV (15:26)
--- NOTE | 2020-11-15 15:48 | CT_ITS ---
We are attempting to reach an attending provider to discuss findings. An addendum with communication details will be sent when the communication is complete. STUDY: CTA HEAD AND NECK WITH CONTRAST REASON FOR EXAM: Female, 34 years old. Neuro deficit, acute, stroke suspected RADIATION DOSAGE (If Supplied By Facility): CTDIvol = ( 22.345 ) mGy, DLP = ( 794.12 ) mGycm TECHNIQUE: CT angiography was performed with a multi-detector CT scanner. Data acquisition was obtained from the skull base through the vertex following intravenous administration of IV 100mL [id number]-300. MIP images were reconstructed from the axial data set. Post-processing of the angiographic images was performed, with multiplanar reformation and 3D reconstruction. Individualized dose optimization techniques were used for this CT. COMPARISON: No relevant priors. FINDINGS: Normal bilateral petrous carotid arteries. Normal right cavernous carotid artery with a normal supraclinoid bifurcation. Normal left cavernous carotid artery with a normal supraclinoid bifurcation. Normal right A1 segments of the anterior cerebral artery. Normal left A1 segments of the anterior cerebral artery. Normal intact anterior communicating artery (ACOM). Normal bilateral A2 segments of the anterior cerebral arteries. Normal right M1 and M2 segments of the middle cerebral arteries, with a normal M1 bifurcation. Normal left M1 and M2 segments of the middle cerebral arteries, with a normal M1 bifurcation. Normal right posterior communicating artery (PCOM). Normal left posterior communicating artery (PCOM). Normal bilateral vertebral arteries. Normal basilar artery with a normal basilar bifurcation. The visualized bilateral superior cerebellar (SCA) arteries are normal. Normal bilateral P1, P2 and visualized P3 segments of the posterior cerebral arteries. There is no demonstrated aneurysm of the [place]. There is no demonstrated abnormality of the visualized brain. AORTIC ARCH: Normal visualized aortic arch. Normal origins of the brachiocephalic, left common carotid, and left subclavian arteries. RIGHT CAROTID ARTERIES: Normal right common carotid artery (CCA). Normal right common carotid bulb. Normal origin of the right internal carotid (ICA) artery without a hemodynamically significant stenosis. Normal visualized cervical portion of the right internal carotid artery. Normal origin of the right external carotid artery (ECA). LEFT CAROTID ARTERIES: Normal left common carotid artery (CCA). Normal left common carotid bulb. Normal origin of the left internal carotid (ICA) artery without a hemodynamically significant stenosis. Normal visualized cervical portion of the left internal carotid artery. Normal origin of the left external carotid artery (ECA). VERTEBRAL ARTERIES: Normal bilateral vertebral arteries. CT/STROKE CTA Head AND Neck W/Con IMPRESSION: Normal CTA Head and neck with contrast. Electronically Signed: Lonnie Smith MD at 16:35 EDT Tel , Service support ,
--- NOTE | 2020-11-15 15:48 | PCM.HP.STD ---
HPI - General General Date of Admission: 11/15/20 HPI Narrative FLORIDA BALTAZAR, is a 34 F with history of hypertension diagnosed about 8 months ago on lisinopril, morbid obesity came to ER with left-sided headache with blurry vision and left-sided numbness started about 1 hour prior to arrival. She describes her headache as 7/10 intensity. She has history of chronic headache probably migraine and is on carbamazepine, topiramate but this morning it is more intense. NIH stroke scale 1. [facility] neurologist was consulted and recommended no TPA because of low NIH stroke scale but full stroke work-up. Patient blood pressure was elevated to ED 153/98 but mildly improved 134/103. Twelve-lead EKG shows normal sinus rhythm at 95 bpm. QTc 412 ms. No significant change from previous EKG of 08/07/2020. Chest x-ray reported normal. Unenhanced CT head no acute change. [facility] Medical History Anxiety Asthma Bipolar disorder Depression Hyperlipidemia Hypertension Kidney stones Smoker Substance abuse Home Medications albuterol sulfate 1 - 2 puff INHALATION Q4H PRN PRN 02/24/20 [History Last Taken Unknown] atorvastatin 20 mg PO QHS 08/07/20 [History Last Taken Unknown] carbamazepine 400 mg PO QHS 08/07/20 [History Last Taken Unknown] lisinopril 10 mg PO DAILY 08/07/20 [History Last Taken Unknown] topiramate 50 mg PO DAILY 08/07/20 [History Last Taken Unknown] cholecalciferol (vitamin D3) [Vitamin D3] 125 mcg PO DAILY 11/09/20 [History Last Taken Unknown] gabapentin 1,600 mg PO BID 11/09/20 [History Last Taken Unknown] hydroxyzine pamoate 25 mg PO BID PRN 11/09/20 [History Last Taken Unknown] pantoprazole [Protonix] 40 mg PO DAILY #20 tab 11/09/20 [Rx Last Taken Unknown] varenicline [Chantix Starting Month Box] 1 tab PO DAILY 11/09/20 [History Last Taken Unknown] Allergy/AdvReac Type Severity Reaction Status Date / Time poison victor hugo extract Allergy Severe SEVERE Verified 11/15/20 14:06 Swelling coconut Allergy Hives Verified 11/15/20 14:06 meperidine HCl [From Demerol] Allergy Hives Verified 11/15/20 14:06 venom-honey bee Allergy Hives Verified 11/15/20 14:06 [bee venom (honey bee)] other (Father has history of chronic alcohol and substance use disorder) Surgical History H/O: hysterectomy History of right ankle joint replacement Hx of appendectomy Hx of cholecystectomy Social History Smoking Status: Current every day smoker tobacco type: cigarettes ROS ROS Narrative Constitutional: Left-sided headache mainly on forehead HEENT: Blurry vision on left visual field. Reports systems reviewed and no addt'l complaints, except as documented Respiratory/Chest: No chest pain or pressure. Denies shortness of breath at rest or with exertion Gastrointestinal: Denies coffee ground emesis, hematemesis or vomiting Genitourinary: Denies burning urination or new urinary tract symptoms Musculoskeletal: Reports joint pain and limited range of motion Neurologic: Denies seizure-like activity. Rest as mentioned in HPI skin: No ulcer. No rash Endocrinology: Reports systems reviewed and no addt'l complaints, except as documented Hematologic/Lymphatic: Reports systems reviewed and no addt'l complaints, except as documented Rest 12 ROS are negative except as mentioned in HPI Vital Signs Vital Signs Vital Signs: 11/15/20 14:04 11/15/20 14:12 11/15/20 14:29 Temperature 97.4 F L Temperature Source Temporal Pulse Rate 99 102 H 96 Respiratory Rate 18 21 H 14 Blood Pressure 153/98 H 156/100 H 156/100 H Blood Pressure Mean 116 118 118 Pulse Ox 100 100 98 Oxygen Delivery Method Room Air Room Air Room Air 11/15/20 14:30 11/15/20 15:00 Temperature Temperature Source Pulse Rate 94 95 Respiratory Rate 21 H 20 H Blood Pressure 134/103 H 148/99 H Blood Pressure Mean 113 115 Pulse Ox 98 96 Oxygen Delivery Method Room Air Room Air Weight Weight: 277 lb 12.519 oz Body Mass Index (BMI) 44.8 Physical Exam Narrative General: Alert, Oriented x3, Cooperative, morbid obesity BMI 44.8 Kd per meter square HEENT: Atraumatic, PERRLA, EOMI, Normocephalic. No obvious loss of vision one-to-one visual confrontation test. Oral: No Gingival or Mucosal Lesions/ Ulcerations Neck: Supple, No JVD, Negative Carotid Bruits Lungs: Air entry diminished in bilateral lung bases. No crepitation/rhonchi/wheezing Cardiovascular: Regular rate, Regular Rhythm, Normal S1, Normal S2, No murmurs Abdomen: Bowel Sounds Present, Soft, Non Tender, Non-Distended : No renal angle tenderness. No suprapubic tenderness. Extremities: No edema, Capillary Refill Less than 3 Seconds, left ankle bracelet for alcohol monitoring Skin: No rashes, No breakdown Musculoskeletal: No Tenderness to Palpation of Joints or Extremities Neurological: Cranial nerves II-XII grossly intact, DTR 2+/4 and Symmetrical, Neuro grossly intact Psych/Mental Status: Normal Affect, Appropriate. Results Lab / Micro Data Result Diagrams: 11/15/20 14:15 11/15/20 14:15 Labs: Laboratory Results - last 24 hr 11/15/20 14:15: WBC 9.3, RBC 4.13 L, Hgb 12.8, Hct 38.3, MCV 92.7, MCH 31.0, MCHC 33.4, RDW Std Deviation 38.9, RDW Coeff of [place] 11.5 L, Plt Count 296, MPV 8.5, Immature Gran % (Auto) 0.600, Neut % (Auto) 60.2, Lymph % (Auto) 28.7, [place] % (Auto) 7.4, Eos % (Auto) 2.2, Baso % (Auto) 0.9, Absolute Neuts (auto) 5.6, Absolute Lymphs (auto) 2.67, Nucleated RBC % 0 11/15/20 14:15: Sodium 138, Potassium 4.0, Chloride 104, Carbon Dioxide 28.0, Anion Gap 6, BUN 14, Creatinine 0.60, Estim Creat Clear Calc 124.85, Est GFR (MDRD) Af Amer 148, Est GFR (MDRD) Non-Af 122, BUN/Creatinine Ratio 23.4 H, Glucose 99, Calcium 9.0, Troponin I High Sens < 3.0 L 11/15/20 14:17: POC Glucose 107 11/15/20 14:23: PT 12.2, INR 1.0, APTT 26.[address] 11/15/20 14:13 IMPRESSION: Normal unenhanced CT scan of the brain. Chest X-Ray 11/15/20 14:50 IMPRESSION: Normal x-ray examination of the chest. Electronically Signed: Lonnie Smith MD at 15:20 EDT Tel , Service support , Assessment & Plan Assessment/Plan (1) TIA (transient ischemic attack): (2) Migraine headache: QUALIFIERS: Migraine type: chronic without aura Status migrainosus presence: without status migrainosus Intractability: not intractable Qualified Code(s): G43.709 - Chronic migraine without aura, not intractable, without status migrainosus PLAN: This is 34-year-old female came to ER with left-sided numbness, headache with blurry vision on left visual field 1. Left-sided numbness, suspicion of CVA: Patient is being admitted in PCU for work-up of TIA/stroke. MRI brain, CTA head and neck, 2D echo ordered. NIH stroke scale monitoring. BP and glucose control as per stroke protocol. [facility] telestroke was done. 2. Acute severe left-sided headache with blurry vision possible migraine exacerbation: Resume patient home medication carbamazepine and topiramate. Patient had ketorolac 15 mg IV in ED. Tylenol or Motrin as needed. 3. Hypertension, uncontrolled: On lisinopril. Labetalol as needed as per stroke protocol. 4. Asthma with morbid obesity: BMI 44.8 kg/m?: On albuterol as needed regimen. 5. Other comorbidities include dyslipidemia, bipolar disorder, anxiety, current active smoking/nicotine use and history of substance use disorder: Patient was counseled to quit smoking. Nicotine replacement patch. VTE prophylaxis:: High risk due to obesity. Lovenox 40 mg subcu twice daily Charges/Coding Visit Charges OBSV E&M: 51972 Initial observation care L3
--- NOTE | 2020-11-15 16:09 | ED.RN ---
NIH delayed due to ct with contrast. suma del angel rn [id number]
--- NOTE | 2020-11-15 16:40 | ECHOD_ITS ---
Reason For Study: TIA/CVA Procedure This was a 2D Doppler, Color Flow transthoracic echocardiogram. The study was technically difficult. Exam performed portable in patient room. Left Ventricle Normal left ventricle. The estimated ejection fraction is EF 55-60 %. Right Ventricle Normal right ventricle. Normal systolic function. Atria Normal left atrium. Normal right atrium. Mitral Valve The mitral valve is structurally normal. No prolapse or stenosis seen. Tricuspid Valve Normal tricuspid valve. Aortic Valve Normal aortic valve. Pulmonic Valve The pulmonic valve is not well visualized. Great Vessels Normal aortic root. Pericardium/Pleural No pericardial effusion. Medication Performed a rapid injection of agitated mix of 9 cc saline and 1cc air to assess for atrial septal defect. MMode/2D Measurements & Calculations LVIDd: 5.1 cm IVSd: 0.98 cm Ao root diam: 2.7 cm LVIDs: 3.2 cm LVPWd: 1.0 cm RVDd: 3.0 cm FS: 37.3 % LAV(MOD-bp): 45.2 ml LA A4 area: 17.3 cm2 LA dimension(2D): 3.4 cm LAV(MOD-bp) Indexed: 19.8 ml/m2 LAV(MOD-sp2): 50.0 ml LAV(MOD-sp4): 40.5 ml Time Measurements MV dec time: 0.23 sec Doppler Measurements & Calculations MV E max thierry: 76.6 cm/sec Lat Peak E' Thierry: 14.1 cm/sec Med Peak E' Thierry: 10.8 cm/sec MV A max thierry: 52.8 cm/sec E/E' lat: 5.4 E/E' med: 7.1 MV E/A: 1.5 Ao V2 max: 118.7 cm/sec LV V1 max: 99.0 cm/sec PA V2 max: 82.6 cm/sec Ao max P.6 mmHg LV V1 max P.9 mmHg ECHO/Echo Complete Interpretation Summary The estimated ejection fraction is EF 55-60 %. Limited Bubble study,unable to comment on PFO If clinically significant consider RAYMOND evaluation Ordering Physician: Fidel Appiah Referring Physician: Dayton Dutta Performed By: Marycruz Gross RDCS, RVT
--- NOTE | 2020-11-15 16:40 | MRI_ITS ---
STUDY: MRI BRAIN WITHOUT CONTRAST REASON FOR EXAM: Female, 34 years old. TIA/STROKE , left sided numbness TECHNIQUE: Standardized multiplanar fat and water weighted pulse sequences were obtained. COMPARISON: CT scan from 11/15/2020. FINDINGS: Normal size of the ventricles and extra-axial spaces for the patient''s age. Normal white matter tracts of the supratentorial brain. Normal bilateral basal ganglia. Normal thalami. There is no extra-axial fluid accumulation. Normal flow voids within the major intracranial circulation suggesting patency by spin echo criteria. Normal sella turcica, pituitary gland, infundibular stalk, optic chiasm and hypothalamus. Normal tectal plate and pineal gland. Normal midbrain, janett and medulla. Normal cerebellum. Normal basal cisterns. Normal bilateral temporal bones. Normal bilateral internal auditory canals. No demonstrated orbital abnormality, within the constraints of a routine brain study. Normal visualized paranasal sinuses. Normal calvarium and skull base. Normal visualized soft tissue structures. Normal visualized upper cervical spine. MRI/Brain without Contrast IMPRESSION: Normal unenhanced MRI of the brain. Electronically Signed: Jose Vega MD at 23:48 EDT Tel , Service support ,
[2020-11-15] MEDS: Pantoprazole Sodium 40 MG Tablet PO (17:11)
[2020-11-15] MEDS: carBAMazepine 200 MG Tablet 400 MG PO (17:14)
[2020-11-15] MEDS: Acetaminophen 325 MG Tablet 650 MG PO (17:14)
--- NOTE | 2020-11-15 18:36 | NURSING ---
This RN spoke on phone with patient's house arrest officer, Sole regarding house arrest bracelet. Bracelet needed to be removed so patient could have MRI obtained, Sole told this RN how to remove bracelet with tools, could cut bracelet off or that she could come remove bracelet but she was on the other side of the [facility] and it would be 40 minutes before she could be here. reliability technologist was leaving at 1900, so decision was made to cut bracelet off. saw filer Dami cut bracelet off with this nurse present in room. Sole called, and this RN informed her of decision to cut bracelet off and Sole said she was actually calling to tell us to cut bracelet off so no one was held up. Instructed for bracelet to stay with patient's personal belongings and patient would follow up with Sole after discharge to get bracelet replaced. Patient notified that she will need to follow up with Sole after discharge to get bracelet replaced. Primary RN notified.
[2020-11-15] MEDS: oxyCODONE 5 MG Tablet PO (20:15)
[2020-11-15] MEDS: Enoxaparin 40 MG/0.4 ML Syringe SC (21:00)
[2020-11-15] MEDS: Atorvastatin Calcium 80 MG Tablet PO (21:00)
[2020-11-15] MEDS: Gabapentin 800 MG Tablet PO (21:00)
[2020-11-16 00:45] VITALS: BP 110/67; PULSE 82; RESP 16; TEMP 36.3; O2SAT 96
--- NOTE | 2020-11-16 02:00 | EKG12_ITS ---
Test Reason : CP Blood Pressure : / mmHG Vent. Rate : 070 BPM Atrial Rate : 070 BPM P-R Int : 136 ms QRS Dur : 090 ms QT Int : 382 ms P-R-T Axes : 035 024 012 degrees QTc Int : 412 ms Normal sinus rhythm Normal ECG Confirmed by TK BROWN, NIMCO ([id number]), index editor ZOFIA HERNANDEZ ([id number]) on 11/17/2020 9:04:16 AM Referred By: DR ROGERS Confirmed By:NIMCO FREY MD
--- NOTE | 2020-11-16 02:00 | NURSING ---
RN CALLED BACK TO ROOM, PATIENT STATES HER HEAD AND CHEST HURTS REALLY BAD.
[2020-11-16 02:04] VITALS: BP 104/66; PULSE 74; RESP 18; TEMP 36.6; O2SAT 96
[2020-11-16] MEDS: oxyCODONE 5 MG Tablet PO ×2 (02:32→10:25)
[2020-11-16 02:51] LABS: Troponin-I HS < 3.0 pg/mL (3.0-53.7)
[2020-11-16 02:52] LABS: Cholesterol 196 mg/dL (200); High Density Lipoprotein 36 mg/dL; Triglycerides 230 mg/dL; Very Low Density Lipoprotein 46 mg/dL (5-40)
[2020-11-16 07:00] VITALS: PULSE 71
[2020-11-16 07:30] VITALS: O2SAT 95
[2020-11-16 08:10] VITALS: BP 132/79; PULSE 79; RESP 18; TEMP 36.6; O2SAT 99
[2020-11-16] MEDS: Varenicline 1 MG Tablet PO (08:44)
[2020-11-16] MEDS: Aspirin 81 MG TAB.CHEW PO (08:44)
[2020-11-16] MEDS: Gabapentin 800 MG Tablet PO (08:44)
[2020-11-16] MEDS: Pantoprazole Sodium 40 MG Tablet PO (08:44)
[2020-11-16] MEDS: Enoxaparin 40 MG/0.4 ML Syringe SC (08:44)
[2020-11-16] MEDS: Lisinopril 10 MG Tablet PO (08:45)
[2020-11-16] MEDS: Acetaminophen 325 MG Tablet 650 MG PO (10:25)
--- NOTE | 2020-11-16 11:38 | PCM.DC ---
Discharge Instructions Diet Discharge Diet: No restrictions Activity Discharge Activity: Return to Normal Activity Weight Bearing Status: Full weight bearing Follow Up Care Test Results: Test results from this visit will be discussed in further detail at your follow-up appointment, if applicable. Discharge Plan Admission Admit Date/Time: 11/15/20 15:48 Primary Reason for Your Visit: luis enrique Attending Provider: Cristi Mendez Primary Care Provider: Butch Dutta Discharge Orders/Prescriptions Prescriptions: Continued albuterol sulfate 1 PUFF inhaler 1 - 2 puff INHALATION Q4H PRN PRN (Reason: Sob &/Or Wheezing) RF: 0 atorvastatin 20 MG tablet 20 mg PO QHS RF: 0 carbamazepine 200 MG tablet 400 mg PO QHS RF: 0 lisinopril 10 MG tablet 10 mg PO DAILY RF: 0 topiramate 50 MG cap,sprinkle,ER 24hr dose pack 50 mg PO DAILY PRN PRN (Reason: Headache) RF: 0 gabapentin 800 mg tablet 800 mg PO BID RF: 0 hydroxyzine pamoate 25 mg capsule 25 mg PO BID PRN (Reason: Anxiety) RF: 0 Chantix Starting Month Box 0.5 mg (11)- 1 mg (42) tablets,dose pack 1 tab PO DAILY RF: 0 cholecalciferol (vitamin D3) [Vitamin D3] 125 mcg (5,000 unit) Tablet 125 mcg PO DAILY RF: 0 pantoprazole [Protonix] 40 mg tablet,delayed release (DR/EC) 40 mg PO DAILY Qty: 20 RF: 0 sucralfate 100 mg/mL suspension 10 ml PO Q6H RF: 0 Referrals / Follow Up: Butch Dutta MD [Primary Care Provider] - Within 2 Weeks Disposition Disposition (needs filled in before D/C Order can be placed): Home, Self Care
--- NOTE | 2020-11-17 17:30 | PCM.DC.SUM ---
Providers Date of Admission: 11/15/20 Date of Discharge: 11/16/20 Primary Care Physician: Dr. Butch Dutta MD Reason For Visit: TIA / HEADACHE Diagnosis Discharge Diagnosis (1) TIA (transient ischemic attack): Status: Deleted Code(s): G45.9 - Transient cerebral ischemic attack, unspecified (2) Migraine headache: Status: Resolved Code(s): G43.909 - Migraine, unspecified, not intractable, without status migrainosus Qualifiers: Migraine type: chronic without aura Status migrainosus presence: without status migrainosus Intractability: not intractable Qualified Code(s): G43.709 - Chronic migraine without aura, not intractable, without status migrainosus Plan: 1. Left-sided paresthesias secondary to migraine cephalgia #2 migraine cephalgia #3 essential hypertension #4 hyperlipidemia Patient did not have a TIA or stroke Medications at Discharge Home Medications albuterol sulfate 1 - 2 puff INHALATION Q4H PRN PRN 02/24/20 atorvastatin 20 mg PO QHS 08/07/20 carbamazepine 400 mg PO QHS 08/07/20 lisinopril 10 mg PO DAILY 08/07/20 topiramate 50 mg PO DAILY PRN PRN 08/07/20 Chantix Starting Month Box 1 tab PO DAILY 11/09/20 cholecalciferol (vitamin D3) [Vitamin D3] 125 mcg PO DAILY 11/09/20 gabapentin 800 mg PO BID 11/09/20 hydroxyzine pamoate 25 mg PO BID PRN 11/09/20 pantoprazole [Protonix] 40 mg PO DAILY #20 tab 11/09/20 sucralfate 10 ml PO Q6H 11/15/20 Hospital Course Operations None Procedures 2-D Echocardiogram Summary of Care Provided Minutes Spent on Discharge: 30 Hospital Course: This 34-year-old female was seen in the emergency room at [facility] with complaints of headache, numbness to the left face, left arm, and left leg, and complaints of fuzzy vision. Patient denied any focal weakness and she denied any speech problems. A stroke team was called and she was seen by teleneurology, CT of the head neck was performed which showed no abnormalities. TPA was not required according to teleneurology, lab obtained was unremarkable. Patient was placed in observation status on PCU, her vital signs were monitored and she had an echocardiogram which was unremarkable-it was however not a good bubble study. Patient underwent an MRI of the brain which did not show evidence of stroke. This examiner felt that the patient had an atypical migraine which caused her symptoms. On 11/16/2020, patient was seen and examined: On examination she appeared in good health and spirits, she does not appear to be in any distress. Vital signs as documented. Skin warm and dry and without overt rashes. Neck without JVD, thyroid appears normal, trachea is midline, neck is supple. Lungs clear, normal air movement was noted. Heart exam notable for regular rhythm, normal sounds and absence of murmurs, rubs or gallops. Abdomen unremarkable and without evidence of organomegaly, masses, or abdominal aortic enlargement, bowel sounds are present in all 4 quadrants, no abdominal tenderness was noted. Extremities nonedematous, no cyanosis was noted, no clubbing was noted. Neuro: Cranial nerves II through XII are grossly intact, no focal motor deficits were noted, sensation to light touch and pinprick is intact, motor exam 5/5 throughout. Psych: Patient is alert and oriented x3, she does not appear anxious or depressed, she does not appear agitated. Patient appears stable for discharge on 11/16/2020. Weight / BMI Weight Weight: 124.4 kg Body Mass Index (BMI) 44.2 ABG / Lab / Microbiology Data Result Diagrams: 11/15/20 14:15 11/15/20 14:15 D/C Instructions Discharge Diet: No restrictions Weight Bearing Status: Full weight bearing Meaningful Use Info Meaningful Use Diagnoses (Choose all that apply): None applicable Discharge Plan Admission Admit Date/Time: 11/15/20 15:48 Primary Reason for Your Visit: luis enrique Attending Provider: Cristi Mendez Primary Care Provider: Butch Dutta Instructions Additional Instructions / Restrictions: Patient Problems: Altered Health Status related to Hospitalization Patient Goals: *Optimal Level of Health *Keep Appointments *Medication Compliance *Remain Safe Discharge Orders/Prescriptions Prescriptions: Continued albuterol sulfate 1 PUFF inhaler 1 - 2 puff INHALATION Q4H PRN PRN (Reason: Sob &/Or Wheezing) RF: 0 atorvastatin 20 MG tablet 20 mg PO QHS RF: 0 carbamazepine 200 MG tablet 400 mg PO QHS RF: 0 lisinopril 10 MG tablet 10 mg PO DAILY RF: 0 topiramate 50 MG cap,sprinkle,ER 24hr dose pack 50 mg PO DAILY PRN PRN (Reason: Headache) RF: 0 gabapentin 800 mg tablet 800 mg PO BID RF: 0 hydroxyzine pamoate 25 mg capsule 25 mg PO BID PRN (Reason: Anxiety) RF: 0 Chantix Starting Month Box 0.5 mg (11)- 1 mg (42) tablets,dose pack 1 tab PO DAILY RF: 0 cholecalciferol (vitamin D3) [Vitamin D3] 125 mcg (5,000 unit) Tablet 125 mcg PO DAILY RF: 0 pantoprazole [Protonix] 40 mg tablet,delayed release (DR/EC) 40 mg PO DAILY Qty: 20 RF: 0 sucralfate 100 mg/mL suspension 10 ml PO Q6H RF: 0 Referrals / Follow Up: Butch Dutta MD [Primary Care Provider] - Within 2 Weeks Disposition Disposition (needs filled in before D/C Order can be placed): Home, Self Care Charges/Coding Visit Charges OBSV E&M: 40726 Observation care discharge
== END 2020-11-16 11:50 | disposition home or self-care (01) ==
LOC: ED 15:33 → PCU 15:54
PROVIDERS: Internal Medicine; Admitting Provider Internal Medicine; Emergency Provider Emergency Medicine; PCP Family Medicine; Visit Provider Internal Medicine
DX: G45.9 Transient cerebral ischemic attack, unspecified (principal); G43.701 Chronic migraine without aura, not intractable, with status migrainosus; I10 Essential (primary) hypertension; E78.5 Hyperlipidemia, unspecified; F31.9 Bipolar disorder, unspecified; F41.9 Anxiety disorder, unspecified; J45.909 Unspecified asthma, uncomplicated; F17.210 Nicotine dependence, cigarettes, uncomplicated; Z79.899 Other long term (current) drug therapy; R29.701 NIHSS score 1; E66.01 Morbid (severe) obesity due to excess calories; Z68.41 Body mass index [BMI] 40.0-44.9, adult
CPT/HCPCS: 36415; 70450; 70496; 70498; 70551; 71045; 80048; 80061; 82962; 83735; 84484; 85025; 85610; 85730; 93005; 93306; 96372; 96374; 99218; 99285; 99406; Q9957; Q9967; A4216; G0378; J3490

== ENCOUNTER 2020-11-17 13:24 | Emergency (ER) | payer MEDICAID, SELFPAY ==
[2020-11-15 16:22] VITALS: BMI 44.2
[2020-11-17 13:25] VITALS: BP 148/108; PULSE 107; RESP 16; TEMP 36.7; O2SAT 98; BMI 44.2
--- NOTE | 2020-11-17 13:52 | EX.ED.VIS.HA ---
HPI History of Present Illness Chief Complaint: Headache Informant: patient Narrative Narrative: Patient reports that despite treatment hospital, she still having headache. She came in the other day. She was just discharged. She had CT scan. She had some mild left-sided weakness. She had a stroke neurologist telestroke see her. They think she has a complex migraine. No indication of stroke. She was treated with Toradol which did help a bit. She was also given oxycodone while in the hospital. She states she still has the headache is more on the left side. She has a long history of migraines. This headache is not really worse than her normal migraine but it is going on a bit longer. It was not thunderclap. She denies any injury or trauma to her head. She states she is under house arrest so she cannot leave the house to do anything. She is on long-term Topamax for headaches. She is also on gabapentin. She has not had fevers or chills. No rash. When in the hospital, she did have a normal MRI as well as CT and CTA of head and neck. She also had echocardiogram. [facility] Medical History Anxiety Asthma Bipolar disorder Depression Hyperlipidemia Hypertension Kidney stones Smoker Substance abuse Home Medications albuterol sulfate 1 - 2 puff INHALATION Q4H PRN PRN 02/24/20 [History Last Taken Unknown] atorvastatin 20 mg PO QHS 08/07/20 [History Last Taken 11/14/20] carbamazepine 400 mg PO QHS 08/07/20 [History Last Taken 11/14/20] lisinopril 10 mg PO DAILY 08/07/20 [History Last Taken 11/15/20] topiramate 50 mg PO DAILY PRN PRN 08/07/20 [History Last Taken Unknown] Chantix Starting Month Box 1 tab PO DAILY 11/09/20 [History Last Taken 11/15/20] cholecalciferol (vitamin D3) [Vitamin D3] 125 mcg PO DAILY 11/09/20 [History Last Taken 11/15/20] gabapentin 800 mg PO BID 11/09/20 [History Last Taken 11/15/20] hydroxyzine pamoate 25 mg PO BID PRN 11/09/20 [History Last Taken 11/15/20] pantoprazole [Protonix] 40 mg PO DAILY #20 tab 11/09/20 [Rx Last Taken 11/15/20] sucralfate 10 ml PO Q6H 11/15/20 [History Last Taken 11/08/20] Allergy/AdvReac Type Severity Reaction Status Date / Time poison victor hugo extract Allergy Severe SEVERE Verified 11/17/20 13:28 Swelling coconut Allergy Hives Verified 11/17/20 13:28 meperidine HCl [From Demerol] Allergy Hives Verified 11/17/20 13:28 venom-honey bee Allergy Hives Verified 11/17/20 13:28 [bee venom (honey bee)] Surgical History H/O: hysterectomy History of right ankle joint replacement Hx of appendectomy Hx of cholecystectomy Social History Smoking Status: Current every day smoker tobacco type: cigarettes ROS ROS ED Constitutional Constitutional ED: Denies chills, fever(s) or sweats Eyes Eyes: Reports blurry vision and other Details: Mild off-and-on blurriness of vision on the left. This was going on when she was initially seen and throughout her hospital stay. ENT ENT ED: Denies rhinorrhea Cardiovascular Cardiovascular: Denies chest pain or palpitations Respiratory/Chest Respiratory/Chest: Denies cough or dyspnea Gastrointestinal Gastrointestinal: Reports nausea and other Details: Occasional mild nausea. ; Denies abdominal pain or vomiting Musculoskeletal Musculoskeletal: Denies neck pain Integumentary Denies rash Neurologic Neurologic: Reports headache(s) and paresthesias Psychiatric Psychiatric: Reports anxiety and depression Hematologic/Lymphatic Hematologic/Lymphatic: Denies easy bleeding or easy bruising EXAM Physical Exam Const Vital Signs: 11/17/20 13:25 Temperature 98.1 F Temperature Source Temporal Pulse Rate 107 H Respiratory Rate 16 Blood Pressure 148/108 H Blood Pressure Mean 121 Pulse Ox 98 Oxygen Delivery Method Room Air Positive well nourished, well developed and obese General Appearance ED: well developed and NAD Nutritional Appearance: obese HEENT Reports normocephalic and moist mucous membranes atraumatic Eyes PERRL and EOMs intact bilaterally Eyes Narrative: Very mild photophobia. Neck no meningeal signs Resp normal respiratory effort Cardio regular rate and regular rhythm GI non-tender Palpation: soft Back/Spine no CVA tenderness Neuro oriented x3 Neuro Narrative: Patient awake alert and appropriate. She has excellent leg strength. He has normal public health engineer strength. Normal sensation. No facial droop. Symptoms her NIH is 0 here. Sensorium / Orientation: awake and alert Psych mental status grossly normal Skin Rashes: no rashes MDM MDM MDM Narrative Medical decision making narrative: I reviewed the patient's CT, CTA, MRI and echocardiogram. Patient was treated with IV fluids, Benadryl, Reglan and Decadron. She is feeling better now. When I walked back in the room the lights were on now. It is 900% gone but she does states she feels a lot better. I will get her a dose of Toradol to get any better. We will get her home. I do not think she needs further admission or work-up. She had a very complete evaluation. She has a long history of migraines. We did discuss returning with fevers, rashes, worsening pain, neurologic symptoms or other concerns. Discharge Plan Triage Chief Complaint: Headache ED Provider: Ariel Murillo Dx/Rx/DC Orders Clinical Impression: Migraine Instructions: ED, Migraine (Classical) Prescriptions: No Action albuterol sulfate 1 PUFF inhaler 1 - 2 puff INHALATION Q4H PRN PRN (Reason: Sob &/Or Wheezing) RF: 0 atorvastatin 20 MG tablet 20 mg PO QHS RF: 0 carbamazepine 200 MG tablet 400 mg PO QHS RF: 0 lisinopril 10 MG tablet 10 mg PO DAILY RF: 0 topiramate 50 MG cap,sprinkle,ER 24hr dose pack 50 mg PO DAILY PRN PRN (Reason: Headache) RF: 0 gabapentin 800 mg tablet 800 mg PO BID RF: 0 hydroxyzine pamoate 25 mg capsule 25 mg PO BID PRN (Reason: Anxiety) RF: 0 Chantix Starting Month Box 0.5 mg (11)- 1 mg (42) tablets,dose pack 1 tab PO DAILY RF: 0 cholecalciferol (vitamin D3) [Vitamin D3] 125 mcg (5,000 unit) Tablet 125 mcg PO DAILY RF: 0 pantoprazole [Protonix] 40 mg tablet,delayed release (DR/EC) 40 mg PO DAILY Qty: 20 RF: 0 sucralfate 100 mg/mL suspension 10 ml PO Q6H RF: 0 Primary Care Provider: Butch Dutta Referrals: Butch Dutta MD [Primary Care Provider] - 3-5 Days Disposition Disposition: Home, Self Care
[2020-11-17] MEDS: 0.9% Normal Saline 1,000 ML 999 ML IV (14:00)
[2020-11-17] MEDS: Metoclopramide 10 MG/2 ML Vial IV (14:00)
[2020-11-17] MEDS: DiphenhydrAMINE 50 MG/ML Syringe IV (14:00)
[2020-11-17] MEDS: dexAMETHasone 10 MG/ML Vial IV (14:00)
[2020-11-17] MEDS: Ketorolac 15 MG/ML Vial IV (14:31)
== END 2020-11-17 15:23 | disposition home or self-care (01) ==
PROVIDERS: Emergency Provider Emergency Medicine; PCP Family Medicine
DX: G43.909 Migraine, unspecified, not intractable, without status migrainosus (principal); I10 Essential (primary) hypertension; E78.5 Hyperlipidemia, unspecified; E66.9 Obesity, unspecified; F31.9 Bipolar disorder, unspecified; F41.9 Anxiety disorder, unspecified; F17.210 Nicotine dependence, cigarettes, uncomplicated; Z68.41 Body mass index [BMI] 40.0-44.9, adult; Z79.899 Other long term (current) drug therapy
CPT/HCPCS: 96361; 96374; 96375; 99283; J7030; A4216

== ENCOUNTER 2020-12-02 20:17 | Emergency (ER) | payer MEDICAID, SELFPAY ==
[2020-12-02 20:18] VITALS: BP 128/95; PULSE 101; RESP 16; TEMP 36.2; O2SAT 97; BMI 44.4
--- NOTE | 2020-12-02 20:50 | EX.ED.VIS.UR ---
HPI HPI - URI History of Present Illness Chief Complaint: Sore Throat Informant: patient Onset/Context/Timing Onset: Today Context: Gradual Onset Timing: Continuous Quality: Burning Location: Right side of her throat Worsened by: Swallowing Relieved by: - (Nothing) Associated Symptoms Associated Symptoms: Positive for Nasal Congestion and Nonproductive cough; Negative for Nausea, Vomiting, Diarrhea, Shortness of Breath, Chest Pain, Hemoptysis and Productive Cough Narrative Narrative: Patient presents with a sore throat and headache that became worse today. Patient states she called EMS earlier today for her headache. Patient states that when they checked her blood pressure was elevated at home. Patient states she still has the headache. Patient states she has developed a sore throat on the right side of her throat. Patient states it radiates into her right ear. Patient states it is burning. Patient states it is worse with swallowing. Patient denies any fevers or chills. Patient does admit to a cough but denies any sputum production. ROS ROS ED Constitutional Constitutional ED: Denies chills or fever(s) Eyes Eyes: Denies blurry vision or change in vision ENT ENT ED: Reports rhinorrhea and sore throat Cardiovascular Cardiovascular: Denies chest pain or palpitations Respiratory/Chest Respiratory/Chest: Reports cough; Denies dyspnea Gastrointestinal Gastrointestinal: Denies nausea or vomiting Genitourinary Genitourinary ED: Denies dysuria or hematuria Musculoskeletal Musculoskeletal: Denies back pain or neck pain Integumentary Denies abscess or rash Neurologic Neurologic: Reports headache(s); Denies weakness Allergic/Immunologic Allergic/Immunologic ED: Denies mouth swelling or urticaria PFSH PFSH Medical History Anxiety Asthma Bipolar disorder Depression Hyperlipidemia Hypertension Kidney stones Smoker Substance abuse Home Medications albuterol sulfate 1 - 2 puff INHALATION Q4H PRN PRN 02/24/20 [History Last Taken Unknown] atorvastatin 20 mg PO QHS 08/07/20 [History Last Taken 11/14/20] carbamazepine 400 mg PO QHS 08/07/20 [History Last Taken 11/14/20] lisinopril 10 mg PO DAILY 08/07/20 [History Last Taken 11/15/20] topiramate 50 mg PO DAILY PRN PRN 08/07/20 [History Last Taken Unknown] Chantix Starting Month Box 1 tab PO DAILY 11/09/20 [History Last Taken 11/15/20] cholecalciferol (vitamin D3) [Vitamin D3] 125 mcg PO DAILY 11/09/20 [History Last Taken 11/15/20] gabapentin 800 mg PO BID 11/09/20 [History Last Taken 11/15/20] hydroxyzine pamoate 25 mg PO BID PRN 11/09/20 [History Last Taken 11/15/20] pantoprazole [Protonix] 40 mg PO DAILY #20 tab 11/09/20 [Rx Last Taken 11/15/20] sucralfate 10 ml PO Q6H 11/15/20 [History Last Taken 11/08/20] Allergy/AdvReac Type Severity Reaction Status Date / Time poison victor hugo extract Allergy Severe SEVERE Verified 12/02/20 20:18 Swelling coconut Allergy Hives Verified 12/02/20 20:18 meperidine HCl [From Demerol] Allergy Hives Verified 12/02/20 20:18 venom-honey bee Allergy Hives Verified 12/02/20 20:18 [bee venom (honey bee)] Surgical History H/O: hysterectomy History of right ankle joint replacement Hx of appendectomy Hx of cholecystectomy Social History Smoking Status: Current every day smoker tobacco type: cigarettes EXAM Physical Exam Const Vital Signs: 12/02/20 20:18 Temperature 97.2 F L Temperature Source Temporal Pulse Rate 101 H Respiratory Rate 16 Blood Pressure 128/95 H Blood Pressure Mean 106 Pulse Ox 97 Oxygen Delivery Method Room Air Positive well nourished, well developed and obese General Appearance ED: well developed Nutritional Appearance: obese HEENT Reports moist mucous membranes normocephalic Throat: posterior oropharynx abnormal Positive for erythema; Negative for exudates Neck supple and no JVD General: lymphadenopathy anterior cervical (Tender anterior cervical adenopathy) Resp normal respiratory effort and clear to auscultation bilaterally Cardio Rate: regular rate Rhythm: regular rhythm Neuro oriented x3, CN's II-XII intact bilaterally and no sensory deficits noted Sensorium / Orientation: alert Motor Exam: strength 5/5 throughout Psych mental status grossly normal MDM MDM MDM Narrative Medical decision making narrative: CBC and basic metabolic profile were obtained were within normal limits. Rapid strep was obtained and was negative. COVID-19 rapid antigen was obtained and was negative. Patient was advised of her findings. I do not think this is a peritonsillar abscess. I do not feel CT scan is necessary at this time. Patient was advised that this is most likely a viral pharyngitis. Patient was instructed to drink plenty of fluids. Patient was instructed to follow-up with her primary care physician in 5 to 7 days. Patient understood and was agreeable with the plan. All questions were answered. Lab Data Attestation: I reviewed the patient's lab results. Labs: Laboratory Results - last 24 hr 12/02/20 12/02/20 21:10 21:10 WBC 9.5 RBC 4.32 Hgb 13.3 Hct 39.7 MCV 91.9 MCH 30.8 MCHC 33.5 RDW Std Deviation 38.8 RDW Coeff of [place] 11.4 L Plt Count 335 MPV 8.5 Immature Gran % (Auto) 0.500 Neut % (Auto) 54.2 Lymph % (Auto) 34.6 Clarke % (Auto) 7.1 Eos % (Auto) 2.8 Baso % (Auto) 0.8 Absolute Neuts (auto) 5.1 Absolute Lymphs (auto) 3.28 Nucleated RBC % 0 Sodium 140 Potassium 3.9 Chloride 105 Carbon Dioxide 28.0 Anion Gap 7 BUN 14 Creatinine 0.65 Estim Creat Clear Calc 114.17 Est GFR (MDRD) Af Amer 135 Est GFR (MDRD) Non-Af 111 BUN/Creatinine Ratio 21.6 H Glucose 92 Calcium 9.1 Discharge Plan Triage Chief Complaint: Sore Throat ED Provider: Brent Hightower Dx/Rx/DC Orders Clinical Impression: Acute viral pharyngitis Instructions: ED Pharyngitis, Viral Prescriptions: No Action albuterol sulfate 1 PUFF inhaler 1 - 2 puff INHALATION Q4H PRN PRN (Reason: Sob &/Or Wheezing) RF: 0 atorvastatin 20 MG tablet 20 mg PO QHS RF: 0 carbamazepine 200 MG tablet 400 mg PO QHS RF: 0 lisinopril 10 MG tablet 10 mg PO DAILY RF: 0 topiramate 50 MG cap,sprinkle,ER 24hr dose pack 50 mg PO DAILY PRN PRN (Reason: Headache) RF: 0 gabapentin 800 mg tablet 800 mg PO BID RF: 0 hydroxyzine pamoate 25 mg capsule 25 mg PO BID PRN (Reason: Anxiety) RF: 0 Chantix Starting Month Box 0.5 mg (11)- 1 mg (42) tablets,dose pack 1 tab PO DAILY RF: 0 cholecalciferol (vitamin D3) [Vitamin D3] 125 mcg (5,000 unit) Tablet 125 mcg PO DAILY RF: 0 pantoprazole [Protonix] 40 mg tablet,delayed release (DR/EC) 40 mg PO DAILY Qty: 20 RF: 0 sucralfate 100 mg/mL suspension 10 ml PO Q6H RF: 0 Primary Care Provider: Butch Dutta Referrals: Butch Dutta MD [Primary Care Provider] - 3-5 Days Disposition Disposition: Home, Self Care
[2020-12-02 21:25] LABS: Absolute Lymphocyte Count 3.28 X10^3/uL (0.83-4.51); Absolute Neutrophil Count 5.1 X10^3/uL (2.0-7.7); Basophil# 0.08 X10^3/uL; Basophil% 0.8 % (0-1); Eosinophil# 0.27 X10^3/uL; Eosinophils% 2.8 % (0-5); Hematocrit 39.7 % (37-47); Hemoglobin 13.3 g/dL (12.0-15.0); Lymphocyte # 3.28 X10^3/ul (0.83-4.51); Lymphocyte % 34.6 % (19-41); Mean Corp Hgb Conc 33.5 g/dL (32-36); Mean Corpuscular Hgb 30.8 pg (27.0-32.0); Mean Corpuscular Volume 91.9 fL (81-99); Mean Platelet Vol. 8.5 fl (6.2-12.0); Monocyte# 0.67 X10^3/uL; Monocyte% 7.1 % (0-10); NRBC Flagged by Analyzer 0 % (0-5); Neutrophil # 5.13 X10^3/uL (2.7-7.7); Neutrophil % 54.2 % (47-70); Platelet Count 335 K/mm3 (150-450); RBC Distribution Width CV 11.4 % (11.6-14.6); RBC Distribution Width SD 38.8 fl (35.1-43.9); Red Blood Count 4.32 M/mm3 (4.2-5.4); White Blood Count 9.5 K/mm3 (4.4-11.0)
[2020-12-02 21:44] LABS: Anion Gap 7 (5-15); BUN 14 mg/dL (7-18); BUN/Creat Ratio 21.6 RATIO (10-20); Calcium,Total 9.1 mg/dL (8.5-10.1); Chloride 105 mmol/L (98-107); Creatinine, Serum 0.65 mg/dL (0.55-1.02); EST Glomerular Filtration Rate 111 mL/min (>60); Est Glom Filt Rate - Afr Amer 135 mL/min (>60); Estimated Creatinine Clearance 114.17 ml/min; Glucose 92 mg/dL (74-106); Potassium 3.9 mmol/L (3.5-5.1); Sodium Level 140 mmol/L (136-145)
== END 2020-12-02 23:09 | disposition home or self-care (01) ==
PROVIDERS: Emergency Provider Emergency Medicine; PCP Family Medicine
DX: J02.8 Acute pharyngitis due to other specified organisms (principal); I10 Essential (primary) hypertension; E78.5 Hyperlipidemia, unspecified; F17.210 Nicotine dependence, cigarettes, uncomplicated; Z79.899 Other long term (current) drug therapy
CPT/HCPCS: 80048; 85025; 87426; 87880; 99283; A4216

== ENCOUNTER 2021-03-05 11:56 | Emergency (ER) | payer MEDICAID, SELFPAY ==
[2021-03-05 11:56] VITALS: BP 142/92; PULSE 81; RESP 16; TEMP 36.3; O2SAT 99; BMI 51.6
--- NOTE | 2021-03-05 12:39 | EDS_ITS ---
HPI History of Present Illness Chief Complaint: Other, Pain/Inj Informant: patient Onset/Context/Timing Onset: Weeks (1) Context: Gradual Onset Timing: Continuous Quality of Pain: - (sore) Location: L great toe Current Severity: Moderate Maximum Severity: Moderate Worsened by: palpation, walking Relieved by: leaving alone Associated Symptoms Associated Symptoms: Negative for Parasthesia, Weakness and Loss of Funtion Narrative Narrative: Pain and swelling progressively worsening at the peroneal aspect of the left great toenail. She has had some ingrown toenails in the past. This morning she popped a small blister near the tip of the toe on the side of the nail, drained some brown liquid out, scant amount. No systemic symptoms or pain elsewhere. [facility] Medical History Anxiety Asthma Bipolar disorder Depression Hyperlipidemia Hypertension Kidney stones Smoker Substance abuse Home Medications albuterol sulfate 1 - 2 puff INHALATION Q4H PRN PRN 02/24/20 [History Last Taken Unknown] atorvastatin 20 mg PO QHS 08/07/20 [History Last Taken 11/14/20] carbamazepine 400 mg PO QHS 08/07/20 [History Last Taken 11/14/20] lisinopril 10 mg PO DAILY 08/07/20 [History Last Taken 11/15/20] topiramate 50 mg PO DAILY PRN PRN 08/07/20 [History Last Taken Unknown] Chantix Starting Month Box 1 tab PO DAILY 11/09/20 [History Last Taken 11/15/20] cholecalciferol (vitamin D3) [Vitamin D3] 125 mcg PO DAILY 11/09/20 [History Last Taken 11/15/20] gabapentin 800 mg PO BID 11/09/20 [History Last Taken 11/15/20] hydroxyzine pamoate 25 mg PO BID PRN 11/09/20 [History Last Taken 11/15/20] pantoprazole [Protonix] 40 mg PO DAILY #20 tab 11/09/20 [Rx Last Taken 11/15/20] sucralfate 10 ml PO Q6H 11/15/20 [History Last Taken 11/08/20] cephalexin 500 mg PO Q6 #28 capsule 03/05/21 [Rx Last Taken Unknown] Allergy/AdvReac Type Severity Reaction Status Date / Time poison victor hugo extract Allergy Severe SEVERE Verified 03/05/21 11:58 Swelling coconut Allergy Hives Verified 03/05/21 11:58 meperidine HCl [From Demerol] Allergy Hives Verified 03/05/21 11:58 venom-honey bee Allergy Hives Verified 03/05/21 11:58 [bee venom (honey bee)] Surgical History H/O: hysterectomy History of right ankle joint replacement Hx of appendectomy Hx of cholecystectomy Social History Smoking Status: Current every day smoker tobacco type: cigarettes ROS ROS ED Constitutional Constitutional ED: Denies chills or fever(s) Musculoskeletal Musculoskeletal: Reports extremity pain; Denies neck pain Integumentary Reports as per HPI and wounds; Denies Abrasions or rash Neurologic Neurologic: Denies paresthesias or weakness EXAM Physical Exam Const Vital Signs: 03/05/21 11:56 Temperature 97.4 F L Temperature Source Temporal Pulse Rate 81 Respiratory Rate 16 Blood Pressure 142/92 H Blood Pressure Mean 108 Pulse Ox 99 Oxygen Delivery Method Room Air Positive well nourished and well developed General Appearance ED: well developed and NAD Neck full ROM and supple Back/Spine normal ROM and normal to inspection Extremity Extremity Narrative: Tenderness with mild cellulitis at the peroneal aspect of the left great toenail, no abscess. No signs of proximal spread. Neuro oriented x3, no focal motor deficits and no sensory deficits noted Sensorium / Orientation: alert Psych mental status grossly normal and thought process normal Skin Skin Narrative: Left great toe: Small distal area where there appears to almost be a blood blister. No fluctuance or abscess, although this may have been a small abscess that the patient already drained spontaneously. Nail is ingrown on both sides of it. She does have some other nails on this foot that are suggestive of onychomycosis but the great toenail does not appear to be thickened. Rashes: no rashes MDM MDM MDM Narrative Medical decision making narrative: Patient does not have an acute abscess that I think needs to be drained. I will put her on antibiotics, I discussed with Dr. Dotson, who will see the patient tomorrow at 2 PM, patient was advised to call the office if she cannot make this time, she is comfortable with that plan. Discharge Plan Triage Chief Complaint: Other, Pain/Inj ED Provider: Perico Tellez Dx/Rx/DC Orders Clinical Impression: Ingrowing nail, left great toe Instructions: ED Toenail Ingrown Infec Abx Onl Prescriptions: New cephalexin [cephalexin] 500 MG capsule 500 mg PO Q6 Qty: 28 RF: 0 No Action albuterol sulfate 1 PUFF inhaler 1 - 2 puff INHALATION Q4H PRN PRN (Reason: Sob &/Or Wheezing) RF: 0 atorvastatin 20 MG tablet 20 mg PO QHS RF: 0 carbamazepine 200 MG tablet 400 mg PO QHS RF: 0 lisinopril 10 MG tablet 10 mg PO DAILY RF: 0 topiramate 50 MG cap,sprinkle,ER 24hr dose pack 50 mg PO DAILY PRN PRN (Reason: Headache) RF: 0 gabapentin 800 mg tablet 800 mg PO BID RF: 0 hydroxyzine pamoate 25 mg capsule 25 mg PO BID PRN (Reason: Anxiety) RF: 0 Chantix Starting Month Box 0.5 mg (11)- 1 mg (42) tablets,dose pack 1 tab PO DAILY RF: 0 cholecalciferol (vitamin D3) [Vitamin D3] 125 mcg (5,000 unit) Tablet 125 mcg PO DAILY RF: 0 pantoprazole [Protonix] 40 mg tablet,delayed release (DR/EC) 40 mg PO DAILY Qty: 20 RF: 0 sucralfate 100 mg/mL suspension 10 ml PO Q6H RF: 0 Primary Care Provider: Butch Dutta Referrals: Butch Dutta MD [Primary Care Provider] - Derrick Dtoson DPM [STAFF PHYSICIAN] - 03/06/21 2:00 pm (If you cannot make this appointment time, call the office to change it) Disposition Disposition: Home, Self Care
== END 2021-03-05 12:56 | disposition home or self-care (01) ==
PROVIDERS: Emergency Provider Emergency Medicine; PCP Family Medicine
DX: L60.0 Ingrowing nail (principal); I10 Essential (primary) hypertension; E78.5 Hyperlipidemia, unspecified; F31.9 Bipolar disorder, unspecified; F41.9 Anxiety disorder, unspecified; F17.210 Nicotine dependence, cigarettes, uncomplicated; Z79.899 Other long term (current) drug therapy
CPT/HCPCS: 99282

== ENCOUNTER 2021-07-30 09:49 | Emergency (ER) | payer MEDICAID, SELFPAY ==
[2021-07-30 09:49] VITALS: BP 133/94; PULSE 81; RESP 16; TEMP 36.8; O2SAT 99; BMI 44.6
--- NOTE | 2021-07-30 09:58 | RAD_ITS ---
INDICATION: chest pain - ACUTE ONSET THIS MORNING EXAMINATION/TECHNIQUE: X-RAY - XR Chest 1 View COMPARISON: 11/15/2020. FINDINGS: Poor inspiratory effort is seen that limits evaluation. LINES/DEVICES: None. LUNGS: Peribronchial cuffing is seen demonstrating no change, the bronchovascular markings otherwise unremarkable no evidence of focal lung consolidation or infiltrate No evidence of pleural effusion. No pneumothorax. MEDIASTINUM AND CARDIOVASCULAR STRUCTURES: Cardiac silhouette not enlarged. Central airways and mediastinal contour are unremarkable. BONES AND SOFT TISSUES: Unremarkable. RAD/Chest 1 View (Portable) IMPRESSION: No radiographic evidence of acute cardiopulmonary disease. Electronically Signed: Rickey Babin MD at 10:33 EDT Reading Location ID and State: [facility] / [place] Tel , Service support ,
--- NOTE | 2021-07-30 09:58 | EKG12_ITS ---
Test Reason : SOB Blood Pressure : / mmHG Vent. Rate : 074 BPM Atrial Rate : 074 BPM P-R Int : 134 ms QRS Dur : 088 ms QT Int : 382 ms P-R-T Axes : 030 020 009 degrees QTc Int : 424 ms Normal sinus rhythm Normal ECG Confirmed by TK BROWN, NIMCO ([id number]), scientific editor ZOFIA HERNANDEZ ([id number]) on 07/31/2021 8:53:33 AM Referred By: H Confirmed By:NIMCO FREY MD
--- NOTE | 2021-07-30 09:59 | EX.ED.DYSGE1 ---
HPI History of Present Illness Chief Complaint: Chest Pain Informant: patient Narrative Narrative: 35-year-old female presents the emergency room with a chief complaint of chest pain. 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 Its worse with movement deep breathing and touch. She states that when it happened the light suddenly seemed brighter and she did not feel right so she was assisted to the living room she states that her right arm feels numb and her right jaw feels discomfort. She states that last year she had a TIA and a heart attack (review of chart does not see that she was given a diagnosis of either of those last year at this institution) [facility] Medical History Anxiety Asthma Bipolar disorder Depression Hyperlipidemia Hypertension Kidney stones Smoker Substance abuse Home Medications atorvastatin 20 mg PO QHS 08/07/20 [History Last Taken 11/14/20] lisinopril 10 mg PO DAILY 08/07/20 [History Last Taken 11/15/20] cholecalciferol (vitamin D3) [Vitamin D3] 125 mcg PO DAILY 11/09/20 [History Last Taken 11/15/20] gabapentin 800 mg PO BID 11/09/20 [History Last Taken 11/15/20] carbamazepine 200 mg PO QHS 07/30/21 [History Last Taken Unknown] cyclobenzaprine 10 mg PO TID PRN #15 tablet 07/30/21 [Rx Last Taken Unknown] trazodone 100 mg PO DAILY 07/30/21 [History Last Taken Unknown] Allergy/AdvReac Type Severity Reaction Status Date / Time poison victor hugo extract Allergy Severe SEVERE Verified 07/30/21 09:52 Swelling coconut Allergy Hives Verified 07/30/21 09:52 meperidine HCl [From Demerol] Allergy Hives Verified 07/30/21 09:52 venom-honey bee Allergy Hives Verified 07/30/21 09:52 [bee venom (honey bee)] Surgical History H/O: hysterectomy History of right ankle joint replacement Hx of appendectomy Hx of cholecystectomy Social History Smoking Status: Current every day smoker tobacco type: cigarettes ROS ROS ED Constitutional Constitutional ED: Denies chills or weight loss Eyes Eyes: Denies change in vision or diplopia ENT ENT ED: Denies ear pain, rhinorrhea or sore throat Cardiovascular Cardiovascular: Reports chest pain; Denies orthopnea, palpitations or racing heartbeat Respiratory/Chest Respiratory/Chest: Denies cough, dyspnea or orthopnea Gastrointestinal Gastrointestinal: Denies abdominal pain, diarrhea, nausea or vomiting Genitourinary Genitourinary ED: Denies dysuria, hematuria or urinary frequency Musculoskeletal Musculoskeletal: Reports back pain; Denies arthralgias or myalgias Integumentary Denies abscess or rash Neurologic Neurologic: Reports paresthesias; Denies headache(s) or weakness Psychiatric Psychiatric: Denies anxiety, depression, suicidal ideation or suicidal thoughts Endocrine Endocrinology: Denies polydipsia, polyphagia or polyuria Allergic/Immunologic Allergic/Immunologic ED: Denies mouth swelling, tongue swelling or urticaria EXAM Physical Exam Const Vital Signs: 07/30/21 09:49 07/30/21 10:15 Temperature 98.3 F Temperature Source Oral Pulse Rate 81 Respiratory Rate 16 Respiratory Effort Normal Non-Labored Blood Pressure 133/94 H Blood Pressure Mean 107 Pulse Ox 99 Oxygen Delivery Method Room Air Positive well nourished, well developed and obese General Appearance ED: well developed Nutritional Appearance: obese HEENT Reports normocephalic, head/scalp atraumatic, TM's clear and moist mucous membranes Negative for trauma Tympanic Membrane ED: Yes TM's clear Eyes PERRL and EOMs intact bilaterally Neck no lymphadenopathy, supple and no JVD Chest Wall Chest Narrative: Patient has tenderness to palpation that reproduces her pain over the manubrium and the costochondral border Resp normal respiratory effort and clear to auscultation bilaterally Cardio regular rate, regular rhythm and no murmurs GI normal to inspection, nondistended, normoactive bowel sounds and non-tender Palpation: soft Back/Spine no CVA tenderness and normal ROM Back/Spine Narrative: Patient has focal tenderness to palpation over the angle of the posterior ribs in the thoracic region. Extremity normal to inspection General Extremety ED: Negative for edema General Extremity: Negative for edema Neuro oriented x3 and CN's II-XII intact bilaterally Neuro Narrative: Reported numbness of the right arm is not present. Rather paresthesias noted Sensorium / Orientation: alert Motor Exam: strength 5/5 throughout Psych mental status grossly normal Mood & Affect: Negative for depressed or tearful Skin no rashes or lesions noted and no wounds MDM MDM MDM Narrative Medical decision making narrative: My interpretation of the chest x-ray is normal mediastinal silhouette. No acute process. Patient is EKG is normal she is in no events on the monitor. Clinically her pain is reproducible with movement touch and breathing. I think that this is musculoskeletal in nature. She received a dose of Toradol. Plan will be anti-inflammatories and a muscle relaxant. Instructions to follow-up with her doctor if not improving. Radiography Diagnostic Testing: Clinical Impression(s) from Imaging Studies Chest X-Ray 07/30/21 09:58 IMPRESSION: No radiographic evidence of acute cardiopulmonary disease. Electronically Signed: Rickey Babin MD at 10:33 EDT Reading Location ID and State: [facility] / [place] Tel , Service support , EKG Initial EKG: Attestation: I personally reviewed and interpreted this EKG as follows: Comments: Normal sinus rhythm ventricular rate of 74 bpm. Discharge Plan Triage Chief Complaint: Chest Pain ED Provider: Ramos Villa Dx/Rx/DC Orders Clinical Impression: Chest pain Instructions: ED Chest Wall Pain, Costochondritis, ED Strain Chest Wall Prescriptions: New cyclobenzaprine [cyclobenzaprine] 10 MG tablet 10 mg PO TID PRN (Reason: Muscle Spasm) Qty: 15 RF: 0 No Action atorvastatin 20 MG tablet 20 mg PO QHS RF: 0 lisinopril 10 MG tablet 10 mg PO DAILY RF: 0 gabapentin 800 mg tablet 800 mg PO BID RF: 0 cholecalciferol (vitamin D3) [Vitamin D3] 125 mcg (5,000 unit) Tablet 125 mcg PO DAILY RF: 0 carbamazepine 200 mg tablet 200 mg PO QHS RF: 0 trazodone 100 mg tablet 100 mg PO DAILY RF: 0 Primary Care Provider: Butch Dutta Referrals: Butch Dutta MD [Primary Care Provider] - 1 Week if not improving Activity Restrictions/Additional Instructions: I would recommend Motrin 600 mg every 6 hours as needed for pain. Disposition Disposition: Home, Self Care
[2021-07-30] MEDS: Ketorolac 60 MG/2 ML Vial IM (10:07)
== END 2021-07-30 11:01 | disposition home or self-care (01) ==
PROVIDERS: Emergency Provider Emergency Medicine; PCP Family Medicine; Visit Provider Emergency Medicine
DX: R07.9 Chest pain, unspecified (principal); Z68.41 Body mass index [BMI] 40.0-44.9, adult; I10 Essential (primary) hypertension; E78.5 Hyperlipidemia, unspecified; E66.9 Obesity, unspecified; I25.2 Old myocardial infarction; F17.210 Nicotine dependence, cigarettes, uncomplicated; Z79.899 Other long term (current) drug therapy; Z86.73 Personal history of transient ischemic attack (TIA), and cerebral infarction without residual deficits
CPT/HCPCS: 71045; 93005; 96372; 99284

== ENCOUNTER 2023-08-11 13:04 | Outpatient (RCR) | payer MEDICAID, SELFPAY ==
[2023-07-25 17:11] LABS: Amphetamine Urine VISTA NEGATIVE (<1000 ng/mL); Barbiturate Urine VISTA NEGATIVE (< 200 ng/mL); Benzodiazepine Urine VISTA NEGATIVE (< 200 ng/mL); Cocaine Urine VISTA NEGATIVE (< 300 ng/mL); Ecstacy Urine VISTA NEGATIVE (< 500 ng/mL); Methadone Urine VISTA NEGATIVE (< 300 ng/mL); PCP Urine VISTA NEGATIVE (< 25 ng/mL); THC Urine VISTA POSITIVE (< 50 ng/mL); Vista UDS pH Range 6
[2023-08-11 15:01] LABS: ALB/GLOB Ratio 1.1 RATIO (0.9-2.4); AST(SGOT) 12 U/L (15-37); Alanine Aminotransfer ALT/SGPT 7 U/L (13-56); Albumin, Serum 3.4 g/dL (3.2-5.0); Alkaline Phosphatase 65 U/L (45-117); Anion Gap 0 (5-15); BUN 9 mg/dL (7-18); BUN/Creat Ratio 14.2 RATIO (10-20); Calcium,Total 9.1 mg/dL (8.5-10.1); Chloride 109 mmol/L (98-107); Creatinine, Serum 0.64 mg/dL (0.55-1.02); EST Glomerular Filtration Rate 112 mL/min (>60); Est Glom Filt Rate - Afr Amer 136 mL/min (>60); Globulin 3.2 g/dL (2.2-4.2); Glucose 105 mg/dL (74-106); Potassium 3.9 mmol/L (3.5-5.1); Protein, Total 6.6 g/dL (6.4-8.2); Sodium Level 138 mmol/L (136-145); T4 Total, Thyroxin 8.5 ug/dL (4.8-13.9)
[2023-08-11 15:20] LABS: HIV - WCH Non-Reactive (Nonreactive); T3 Total - Triiodothyronine 1.48 ng/mL (0.6-1.81); Vitamin D,25 Hydroxy 30.2 ng/mL
== END 2023-08-12 23:11 | disposition home or self-care (01) ==
LOC: LAB 13:04
PROVIDERS: PCP Family Medicine
DX: F11.20 Opioid dependence, uncomplicated (principal)
CPT/HCPCS: 36415; 80053; 80074; 80307; 82306; 84436; 84443; 84480; 86703; 87491; 87591

== ENCOUNTER 2023-09-04 10:43 | Outpatient (RCR) | payer MEDICAID, SELFPAY ==
[2023-09-04 12:04] LABS: BUP Internal Control LINE = VALID (VALID); Buprenorphine Drug Screen Positive (<10 ng/mL)
[2023-09-04 12:25] LABS: Amphetamine Urine VISTA NEGATIVE (<1000 ng/mL); Barbiturate Urine VISTA NEGATIVE (< 200 ng/mL); Benzodiazepine Urine VISTA NEGATIVE (< 200 ng/mL); Cocaine Urine VISTA NEGATIVE (< 300 ng/mL); Ecstacy Urine VISTA NEGATIVE (< 500 ng/mL); Methadone Urine VISTA NEGATIVE (< 300 ng/mL); PCP Urine VISTA NEGATIVE (< 25 ng/mL); THC Urine VISTA POSITIVE (< 50 ng/mL); Vista UDS pH Range 5
== END 2023-09-09 18:00 | disposition home or self-care (01) ==
LOC: LAB 10:43
PROVIDERS: PCP Family Medicine
DX: F11.20 Opioid dependence, uncomplicated (principal); Z13.818 Encounter for screening for other digestive system disorders
CPT/HCPCS: 80307

== ENCOUNTER 2023-09-26 15:39 | Outpatient (RCR) | payer MEDICAID, SELFPAY ==
[2023-09-27 01:07] LABS: Amphetamine Urine VISTA NEGATIVE (<1000 ng/mL); Barbiturate Urine VISTA NEGATIVE (< 200 ng/mL); Benzodiazepine Urine VISTA NEGATIVE (< 200 ng/mL); Cocaine Urine VISTA NEGATIVE (< 300 ng/mL); Ecstacy Urine VISTA NEGATIVE (< 500 ng/mL); Methadone Urine VISTA NEGATIVE (< 300 ng/mL); PCP Urine VISTA NEGATIVE (< 25 ng/mL); THC Urine VISTA POSITIVE (< 50 ng/mL); Vista UDS pH Range 5
[2023-09-27 01:42] LABS: BUP Internal Control LINE = VALID (VALID); Buprenorphine Drug Screen Positive (<10 ng/mL)
== END 2023-09-26 18:00 | disposition home or self-care (01) ==
LOC: LAB 15:39
PROVIDERS: PCP Family Medicine
DX: Z13.818 Encounter for screening for other digestive system disorders (principal); F11.20 Opioid dependence, uncomplicated
CPT/HCPCS: 80307

== ENCOUNTER 2023-11-07 10:00 | Outpatient (RCR) | payer MEDICAID, SELFPAY ==
[2023-11-07 10:57] LABS: Amphetamine Urine VISTA NEGATIVE (<1000 ng/mL); Barbiturate Urine VISTA NEGATIVE (< 200 ng/mL); Benzodiazepine Urine VISTA NEGATIVE (< 200 ng/mL); Cocaine Urine VISTA NEGATIVE (< 300 ng/mL); Ecstacy Urine VISTA NEGATIVE (< 500 ng/mL); Methadone Urine VISTA NEGATIVE (< 300 ng/mL); PCP Urine VISTA NEGATIVE (< 25 ng/mL); THC Urine VISTA POSITIVE (< 50 ng/mL); Vista UDS pH Range 4
[2023-11-07 16:00] LABS: BUP Internal Control LINE = VALID (VALID); Buprenorphine Drug Screen Positive (<10 ng/mL)
== END 2023-11-12 18:00 | disposition home or self-care (01) ==
LOC: LAB 10:00
PROVIDERS: PCP Family Medicine
DX: F11.20 Opioid dependence, uncomplicated (principal); Z13.818 Encounter for screening for other digestive system disorders
CPT/HCPCS: 80307

== ENCOUNTER 2023-12-08 15:46 | Outpatient (RCR) | payer MEDICAID, SELFPAY ==
[2023-12-09 10:22] LABS: Amphetamine Urine VISTA NEGATIVE (<1000 ng/mL); Barbiturate Urine VISTA NEGATIVE (< 200 ng/mL); Benzodiazepine Urine VISTA NEGATIVE (< 200 ng/mL); Cocaine Urine VISTA NEGATIVE (< 300 ng/mL); Ecstacy Urine VISTA NEGATIVE (< 500 ng/mL); Methadone Urine VISTA NEGATIVE (< 300 ng/mL); PCP Urine VISTA NEGATIVE (< 25 ng/mL); THC Urine VISTA POSITIVE (< 50 ng/mL); Vista UDS pH Range 4
[2023-12-09 11:05] LABS: BUP Internal Control LINE = VALID (VALID); Buprenorphine Drug Screen Positive (<10 ng/mL)
== END 2023-12-08 18:00 | disposition home or self-care (01) ==
LOC: LAB 15:46
PROVIDERS: PCP Family Medicine
DX: F11.20 Opioid dependence, uncomplicated (principal)
CPT/HCPCS: 80307

== ENCOUNTER 2024-01-12 15:53 | Outpatient (RCR) | payer MEDICAID, SELFPAY ==
[2023-12-29 16:44] LABS: Amphetamine Urine VISTA NEGATIVE (<1000 ng/mL); Barbiturate Urine VISTA NEGATIVE (< 200 ng/mL); Benzodiazepine Urine VISTA NEGATIVE (< 200 ng/mL); Cocaine Urine VISTA NEGATIVE (< 300 ng/mL); Ecstacy Urine VISTA NEGATIVE (< 500 ng/mL); Methadone Urine VISTA NEGATIVE (< 300 ng/mL); PCP Urine VISTA NEGATIVE (< 25 ng/mL); THC Urine VISTA POSITIVE (< 50 ng/mL); Vista UDS pH Range 4
[2023-12-29 16:49] LABS: OXY Internal Control LINE = VALID (VALID); Oxycodone Drug Screen Negative (<100 ng/mL)
[2023-12-29 17:00] LABS: BUP Internal Control LINE = VALID (VALID); Buprenorphine Drug Screen Positive (<10 ng/mL)
[2024-01-12 18:11] LABS: Amphetamine Urine VISTA NEGATIVE (<1000 ng/mL); Barbiturate Urine VISTA NEGATIVE (< 200 ng/mL); Benzodiazepine Urine VISTA NEGATIVE (< 200 ng/mL); Cocaine Urine VISTA NEGATIVE (< 300 ng/mL); Ecstacy Urine VISTA POSITIVE (< 500 ng/mL); Methadone Urine VISTA NEGATIVE (< 300 ng/mL); PCP Urine VISTA NEGATIVE (< 25 ng/mL); THC Urine VISTA POSITIVE (< 50 ng/mL); Vista UDS pH Range 5
== END 2024-01-12 18:00 | disposition home or self-care (01) ==
LOC: LAB 15:53
PROVIDERS: PCP Family Medicine
DX: F11.20 Opioid dependence, uncomplicated (principal); Z13.818 Encounter for screening for other digestive system disorders
CPT/HCPCS: 80307; 80365; G0480

== ENCOUNTER 2024-02-03 12:15 | Outpatient (RCR) | payer MEDICAID, SELFPAY | END 2024-02-03 18:00 | disposition home or self-care (01) | LOC: LAB 12:15 | PROVIDERS: PCP Family Medicine | DX: F11.20 Opioid dependence, uncomplicated (principal) ==

== ENCOUNTER 2024-02-21 21:04 | Emergency (ER) | payer MEDICAID, SELFPAY ==
[2024-02-21 21:05] VITALS: BP 134/85; PULSE 90; RESP 18; TEMP 36.4; O2SAT 95; BMI 43.9
[2024-02-21 21:23] VITALS: BP 134/85; PULSE 90; RESP 18; TEMP 36.4; O2SAT 95
== END 2024-02-21 21:28 | disposition home or self-care (01) ==
PROVIDERS: Emergency Provider Emergency Medicine; PCP Family Medicine; Referring Provider Emergency Medicine; Visit Provider Emergency Medicine
DX: Z48.817 Encounter for surgical aftercare following surgery on the skin and subcutaneous tissue (principal); F31.9 Bipolar disorder, unspecified; F17.210 Nicotine dependence, cigarettes, uncomplicated
CPT/HCPCS: 99282

== ENCOUNTER 2024-02-25 13:08 | Outpatient (RCR) | payer MEDICAID, SELFPAY | END 2024-03-13 18:00 | disposition home or self-care (01) | LOC: LAB 13:08 | PROVIDERS: PCP Family Medicine | DX: F11.20 Opioid dependence, uncomplicated (principal) ==

== ENCOUNTER 2024-03-22 12:25 | Outpatient (RCR) | payer MEDICAID, SELFPAY | END 2024-03-22 18:00 | disposition home or self-care (01) | LOC: LAB 12:25 | PROVIDERS: PCP Family Medicine | DX: F11.20 Opioid dependence, uncomplicated (principal); Z13.828 Encounter for screening for other musculoskeletal disorder ==

== ENCOUNTER 2024-04-21 16:35 | Emergency (ER) | payer MEDICAID, SELFPAY ==
[2024-04-21 16:36] VITALS: BP 138/98; PULSE 77; RESP 18; TEMP 36.7; O2SAT 97; BMI 45.3
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
[2024-04-21] MEDS: Ketorolac 15 MG/ML Vial IV (18:12)
[2024-04-21 20:30] VITALS: BP 163/98; PULSE 89; RESP 18; O2SAT 97
[2024-04-21] MEDS: Acetaminophen 500 MG Tablet 1000 MG PO (20:46)
== END 2024-04-21 21:27 | disposition home or self-care (01) ==
PROVIDERS: Emergency Provider Surgery; PCP Family Medicine; Visit Provider Surgery
DX: S09.90XA Unspecified injury of head, initial encounter (principal); S16.1XXA Strain of muscle, fascia and tendon at neck level, initial encounter; M51.26 Other intervertebral disc displacement, lumbar region; F17.210 Nicotine dependence, cigarettes, uncomplicated; V49.40XA Driver injured in collision with unspecified motor vehicles in traffic accident, initial encounter
CPT/HCPCS: 70450; 72125; 72131; 96374; 96376; 99285; A4216

== ENCOUNTER 2024-04-26 11:55 | Outpatient (RCR) | payer MEDICAID, SELFPAY | END 2024-04-26 18:00 | disposition home or self-care (01) | LOC: LAB 11:55 | PROVIDERS: PCP Family Medicine | DX: F11.20 Opioid dependence, uncomplicated (principal); Z13.818 Encounter for screening for other digestive system disorders ==

== ENCOUNTER 2024-05-20 12:37 | Outpatient (RCR) | payer MEDICAID, SELFPAY | END 2024-06-11 18:00 | disposition home or self-care (01) | LOC: LAB 12:37 | PROVIDERS: PCP Family Medicine | DX: Z13.818 Encounter for screening for other digestive system disorders (principal); F11.20 Opioid dependence, uncomplicated ==

== ENCOUNTER 2024-06-18 10:46 | Outpatient (RCR) | payer MEDICAID, SELFPAY | END 2024-06-18 18:00 | disposition home or self-care (01) | LOC: LAB 10:46 | PROVIDERS: PCP Family Medicine | DX: F11.20 Opioid dependence, uncomplicated (principal); Z13.818 Encounter for screening for other digestive system disorders ==

== ENCOUNTER 2024-07-19 13:15 | Outpatient (RCR) | payer MEDICAID, SELFPAY | END 2024-08-11 18:00 | disposition home or self-care (01) | LOC: LAB 13:15 | PROVIDERS: PCP Family Medicine | DX: F11.20 Opioid dependence, uncomplicated (principal) ==

== ENCOUNTER 2024-08-16 09:16 | Outpatient (RCR) | payer MEDICAID, SELFPAY | END 2024-08-16 18:00 | disposition home or self-care (01) | LOC: LAB 09:16 | PROVIDERS: PCP Family Medicine | DX: F11.20 Opioid dependence, uncomplicated (principal); Z13.818 Encounter for screening for other digestive system disorders ==

== ENCOUNTER 2024-10-11 15:26 | Outpatient (RCR) | payer MEDICAID, SELFPAY | END 2024-10-11 18:00 | disposition home or self-care (01) | LOC: LAB 15:26 | PROVIDERS: PCP Family Medicine | DX: F11.20 Opioid dependence, uncomplicated (principal); Z13.818 Encounter for screening for other digestive system disorders ==

== ENCOUNTER 2024-11-08 13:39 | Outpatient (RCR) | payer MEDICAID, SELFPAY | END 2024-11-11 21:13 | disposition home or self-care (01) | LOC: LAB 13:39 | PROVIDERS: PCP Family Medicine | DX: F11.20 Opioid dependence, uncomplicated (principal); Z13.828 Encounter for screening for other musculoskeletal disorder ==

== ENCOUNTER 2024-12-06 13:31 | Outpatient (RCR) | payer MEDICAID, SELFPAY ==
[2024-12-07 02:18] LABS: Barbiturate Urine NEGATIVE (< 200 ng/mL); Benzodiazepine Urine NEGATIVE (< 200 ng/mL); PCP Urine NEGATIVE (< 25 ng/mL); THC Urine PRESUMPTIVE POSITIVE (< 50 ng/mL)
== END 2024-12-06 18:00 | disposition home or self-care (01) ==
LOC: LAB 13:31
PROVIDERS: PCP Family Medicine
DX: F11.20 Opioid dependence, uncomplicated (principal); Z13.818 Encounter for screening for other digestive system disorders
CPT/HCPCS: 36415; 80053; 80307; 82306; 84439; 84443; 84481; 86703; 86706; 86780; 86803; 87340; 87491; 87591

== ENCOUNTER 2025-01-03 14:46 | Outpatient (RCR) | payer MEDICAID, SELFPAY ==
[2025-01-04 10:14] LABS: Barbiturate Urine NEGATIVE (< 200 ng/mL); Benzodiazepine Urine NEGATIVE (< 200 ng/mL); PCP Urine NEGATIVE (< 25 ng/mL); THC Urine PRESUMPTIVE POSITIVE (< 50 ng/mL)
== END 2025-01-11 18:00 | disposition home or self-care (01) ==
LOC: LAB 14:46
PROVIDERS: PCP Family Medicine
DX: F11.20 Opioid dependence, uncomplicated (principal)
CPT/HCPCS: 80307

== ENCOUNTER 2025-01-31 12:31 | Outpatient (RCR) | payer MEDICAID, SELFPAY ==
[2025-01-31 14:07] LABS: Barbiturate Urine NEGATIVE (< 200 ng/mL); Benzodiazepine Urine NEGATIVE (< 200 ng/mL); PCP Urine NEGATIVE (< 25 ng/mL); THC Urine PRESUMPTIVE POSITIVE (< 50 ng/mL)
== END 2025-01-31 18:00 | disposition home or self-care (01) ==
LOC: LAB 12:31
PROVIDERS: PCP Family Medicine
DX: F11.20 Opioid dependence, uncomplicated (principal)
CPT/HCPCS: 80307

== ENCOUNTER 2025-02-23 14:10 | Outpatient (RCR) | payer MEDICAID, SELFPAY | END 2025-03-12 18:00 | disposition home or self-care (01) | LOC: LAB 14:10 | PROVIDERS: PCP Family Medicine | DX: F11.20 Opioid dependence, uncomplicated (principal) ==

== ENCOUNTER 2025-03-22 14:51 | Outpatient (RCR) | payer MEDICAID, SELFPAY ==
[2025-03-22 15:58] LABS: Barbiturate Urine NEGATIVE (< 200 ng/mL); Benzodiazepine Urine NEGATIVE (< 200 ng/mL); PCP Urine NEGATIVE (< 25 ng/mL); THC Urine PRESUMPTIVE POSITIVE (< 50 ng/mL)
== END 2025-03-22 18:00 | disposition home or self-care (01) ==
LOC: LAB 14:51
PROVIDERS: PCP Family Medicine
DX: F11.20 Opioid dependence, uncomplicated (principal)
CPT/HCPCS: 80307